=== PATIENT | female | born 1960 | race African-American/Black ===

== ENCOUNTER 2016-08-17 05:56 | Observation (INO) | payer BC ==
[~2016-08-17] VITALS: Ht 167.6 cm; Wt 89.8 kg
[~2016-08-17 05:56] MED LIST: AZIT250T6 PO; OMEP40CA5 PO; ONDA4TAB7 PO; SUCR1TAB PO
--- NOTE | 2016-08-17 06:04 | PHYS DOC ---
Past Medical History Past Medical History: GERD, High Cholesterol, Hypertension, Other Additional Past Medical Histor: gastritis, Past Surgical History: Hysterectomy Additional Past Surgical Histo: Endoscopy Alcohol Use: None Drug Use: None Adult General Chief Complaint Chief Complaint: ABDOMINAL PAIN HPI HPI Patient is a 56 year old female who presents with abdominal pain. She states this started on Saturday and she took some of her husbands stool softeners and had a hard bowel movement on Saturday. She states the pain resolved and then came back yesterday it's in the epigastric area and does not radiate. Nothing makes it better or worse. She denies any nausea vomiting diarrhea, fevers or chills. She states she's had normal bowel movement since Saturday however the pain is constant in nature and isn't crampy type of discomfort that she rates at 9 out of 10. He hasn't taken anything for pain or discomfort since Saturday. She is on omeprazole and takes that daily. She is supposed to be taking blood pressure and cholesterol medications however she stopped that about 4 months ago because she states they were not working. She denies any history of surgeries on her abdomen other than . Her primary care physician is Dr. Toribio Review of Systems Review of Systems Constitutional: Denies fever or chills [] Eyes: Denies change in visual acuity, redness, or eye pain [] HENT: Denies nasal congestion or sore throat [] Respiratory: Denies cough or shortness of breath [] Cardiovascular: No additional information not addressed in HPI [] GI: Denies nausea, vomiting, bloody stools or diarrhea, positive for abdominal pain [] : Denies dysuria or hematuria [] Musculoskeletal: Denies back pain or joint pain [] Integument: Denies rash or skin lesions [] Neurologic: Denies headache, focal weakness or sensory changes [] Endocrine: Denies polyuria or polydipsia [] Current Medications Current Medications Current Medications Medications (Trade) Dose Ordered Sig/Gayatri Start Time Stop Time Status Last Admin Dose Admin Info (Do NOT chart on this entry -- for MONITORING) 1 each PRN DAILY PRN 08/17/16 06:45 08/19/16 06:44 Iohexol (Omnipaque 300 Mg/ml) 75 ml 1X ONCE 08/17/16 07:00 08/17/16 07:01 DC 08/17/16 07:33 75 ML Morphine Sulfate 2 mg PRN Q15MIN PRN 08/17/16 09:00 08/18/16 08:59 08/17/16 09:07 2 MG Multi-Ingredient Mouthwash/Gargle (Gi Cocktail Single Dose) 15 ml STK-MED ONCE 08/17/16 06:17 08/17/16 06:18 DC Multi-Ingredient Mouthwash/Gargle 15 ml 15 ml 1X ONCE 08/17/16 06:30 08/17/16 06:31 DC 08/17/16 06:22 15 ML Sodium Chloride (Iv Sodium Chloride 0.9% 1000ml Bag) 1,000 ml @ 100 mls/hr Q10H 08/17/16 07:00 08/17/16 16:59 08/17/16 06:32 100 MLS/HR Allergies Allergies Allergies Coded Allergies Type Severity Reaction Last Updated Verified Penicillins Allergy Severe swelling 08/17/16 Yes Physical Exam Physical Exam Constitutional: Well developed, well nourished, no acute distress, non-toxic appearance. [] HENT: Normocephalic, atraumatic, bilateral external ears normal, oropharynx moist, no oral exudates, nose normal. [] Eyes: PERRLA, EOMI, conjunctiva normal, no discharge. [] Neck: Normal range of motion, no tenderness, supple, no stridor. [] Cardiovascular:Heart rate regular rhythm, no murmur [] Lungs & Thorax: Bilateral breath sounds clear to auscultation [] Abdomen: Bowel sounds normal, soft, tender palpation epigastric area, no rebound or guarding, no masses, no pulsatile masses. [] Skin: Warm, dry, no erythema, no rash. [] Back: No tenderness, no CVA tenderness. [] Extremities: No tenderness, no cyanosis, no clubbing, ROM intact, no edema. [] Neurologic: Alert and oriented X 3, normal motor function, normal sensory function, no focal deficits noted. [] Psychologic: Affect normal, judgement normal, mood normal. [] Current Patient Data Vital Signs Vital Signs Date Time Temp Pulse Resp B/P Pulse Ox O2 Delivery O2 Flow Rate FiO2 08/17/16 07:00 72 18 179/93 97 Room Air 08/17/16 06:00 98.8 98.8 Lab Values Laboratory Tests Test 08/17/16 06:00 08/17/16 06:50 White Blood Count 7.9x10^3/uL (4.0-11.0) Red Blood Count 4.68x10^6/uL (3.50-5.40) Hemoglobin 13.7g/dL (12.0-15.5) Hematocrit 42.2% (36.0-47.0) Mean Corpuscular Volume 90fL (79-100) Mean Corpuscular Hemoglobin 29pg (25-35) Mean Corpuscular Hemoglobin Concent 32g/dL (31-37) Red Cell Distribution Width 14.6% (11.5-14.5) H Platelet Count 278x10^3/uL (140-400) Neutrophils (%) (Auto) 51% (31-73) Lymphocytes (%) (Auto) 42% (24-48) Monocytes (%) (Auto) 5% (0-9) Eosinophils (%) (Auto) 1% (0-3) Basophils (%) (Auto) 1% (0-3) Neutrophils # (Auto) 4.0x10^3uL (1.8-7.7) Lymphocytes # (Auto) 3.3x10^3/uL (1.0-4.8) Monocytes # (Auto) 0.4x10^3/uL (0.0-1.1) Eosinophils # (Auto) 0.1x10^3/uL (0.0-0.7) Basophils # (Auto) 0.1x10^3/uL (0.0-0.2) Urine Collection Type Void Urine Color Yellow Urine Clarity Clear Urine pH 7.0 Urine Specific [place] 1.020 Urine Protein Negativemg/dL (NEG-TRACE) Urine Glucose (UA) Negativemg/dL (NEG) Urine Ketones (Stick) Negativemg/dL (NEG) Urine Blood Negative (NEG) Urine Nitrite Negative (NEG) Urine Bilirubin Negative (NEG) Urine Urobilinogen Dipstick 0.2mg/dL (0.2 mg/dL) Urine Leukocyte Esterase Negative (NEG) Urine RBC 0/HPF (0-2) Urine WBC 1-4/HPF (0-4) Urine Squamous Epithelial Cells Many/LPF Urine Bacteria Moderate/HPF (0-FEW) Urine Mucus Marked/LPF Urine Test Negative (NEG) Prothrombin Time 13.2SEC (11.7-14.0) Prothrombin Time INR 1.1 (0.8-1.1) PTT 29SEC (24-38) Sodium Level 145mmol/L (136-145) Potassium Level 3.7mmol/L (3.5-5.1) Chloride Level 109mmol/L (98-107) H Carbon Dioxide Level 26mmol/L (21-32) Anion Gap 10 (6-14) Blood Urea Nitrogen 12mg/dL (7-20) Creatinine 0.7mg/dL (0.6-1.0) Estimated GFR (Cockcroft-Gault) 104.7 BUN/Creatinine Ratio 17 (6-20) Glucose Level 129mg/dL (70-99) H Calcium Level 9.8mg/dL (8.5-10.1) Total Bilirubin 0.2mg/dL (0.2-1.0) Aspartate Amino Transferase (AST) 13U/L (15-37) L Alanine Aminotransferase (ALT) 26U/L (14-59) Alkaline Phosphatase 87U/L (46-116) Creatine Kinase 69U/L (26-192) Creatine Kinase MB (Mass) 0.6ng/mL (0.0-3.6) Creatine Kinase MB Relative Index 0.9% (0-4) Troponin I Quantitative < 0.017ng/mL (0.000-0.055) [id number]-[id number]-Type Natriuretic Peptide 45pg/mL (0-124) Total Protein 7.2g/dL (6.4-8.2) Albumin 3.5g/dL (3.4-5.0) Albumin/Globulin Ratio 0.9 (1.0-1.7) L Lipase 101U/L (73-393) Laboratory Tests 08/17/16 06:00 Laboratory Tests 08/17/16 06:50 EKG EKG EKG shows normal sinus rhythm rate [address] elevations or T-wave inversions, normal axis, QRS 82 ms, QTC 432 ms, as interpreted by me. Radiology/Procedures Radiology/Procedures [facility] [address] [place], [place] [id number] IMAGING REPORT Signed PATIENT: NORMA VILLA ACCOUNT: [id number] : 1960 LOCATION: ER AGE: 56 SEX: F EXAM STATUS: REG ER ORD. PHYSICIAN: CLARA TATE MD REASON: abd pain PROCEDURE: ABD PELV W/ IV CONTRAST ONLY Indication abdominal pain. Predominantly at the gastric. Axial images through the abdomen and pelvis were obtained. IV contrast, 75 cc of Omnipaque 300, was administered. No oral contrast was administered. No prior imaging of the abdomen or pelvis is available. No definite acute finding is seen at either lung base. There is some slight volume loss at the lung bases likely reflecting atelectasis. There are several low-density masses in the liver which are not completely characterized on this exam but in all likelihood reflect small incidental cysts. Clinical correlation as to the possibility for hepatic pathology advised. A definite significant finding in the liver is not seen. The spleen appears unremarkable. The gallbladder is largely contracted. No pancreatic abnormality is seen. There is a low-density 2.5 cm mass, compatible with a cyst, associated with the right kidney. A smaller subcentimeter mass also compatible with a cyst is noted associated with the left kidney. There are occasional right renal calculi the largest measuring approximately 3 to 4 mm. Acute finding in the abdomen is not seen. No mass or inflammatory process is seen in the pelvis. There is a small periumbilical hernia which appears uncomplicated. IMPRESSION: No acute finding seen in the abdomen or pelvis. Small masses in the liver likely reflect incidental cysts. Bilateral renal cysts and small right renal calculi DICTATED and SIGNED BY: GEMMA PHILLIPS MD DATE: 08/17/16 0757 CC: CLARA TATE MD; RICHARD TORIBIO MD ~ Impressions: Abdominal pain Chest pain Hypertension Dyslipidemia Noncompliance with medications Course & Med Decision Making Course & Med Decision Making Pertinent Labs and Imaging studies reviewed. (See chart for details) EKG, chest x-ray and CT abdomen and pelvis nonacute. We'll admit for further evaluation and chest pain rule out. I spoke with cardiology and they are aware of the patient. She was given 325 of aspirin. Dragon Disclaimer Dragon Disclaimer This electronic medical record was generated, in whole or in part, using a voice recognition dictation system. Departure Departure Impression: Primary Impression: Abdominal pain Additional Impression: Chest pain Disposition: 09 ADMITTED INPATIENT Admitting Physician: Gali Hudson Condition: GOOD Referrals: RICHARD TORIBIO MD (PCP) Problem Qualifiers CLARA TATE MD Aug 17, 2016 06:04
[2016-08-17] MEDS ORDERED: LIDO:MAALOX:DONNATAL 1:1:1 15 ML SINGLE DOSE ONE (06:17)
[2016-08-17 06:30] LABS: BASO # 0.1 x10^3/uL (0.0-0.2); BASO % 1 % (0-3); EOS % 1 % (0-3); HEMATOCRIT 42.2 % (36.0-47.0); HEMOGLOBIN 13.7 g/dL (12.0-15.5); LYMPH # 3.3 x10^3/uL (1.0-4.8); LYMPH % 42 % (24-48); MEAN CORPUSCULAR HEMOGLOBIN 29 pg (25-35); MEAN CORPUSCULAR HGB CONC 32 g/dL (31-37); MEAN CORPUSCULAR VOLUME 90 fL (79-100); MONO % 5 % (0-9); NEUT % 51 % (31-73); PLATELET COUNT 278 x10^3/uL (140-400); RED BLOOD COUNT 4.68 x10^6/uL (3.50-5.40); RED CELL DISTRIBUTION WIDTH 14.6 % (11.5-14.5); WHITE BLOOD COUNT 7.9 x10^3/uL (4.0-11.0)
[2016-08-17] MEDS ORDERED: LIDO:MAALOX:DONNATAL 1:1:1 15 ML SINGLE DOSE SWSW ONE (06:30)
[2016-08-17 06:33] LABS: BILIRUBIN,URINE NEGATIVE (NEG); GLUCOSE,URINE NEGATIVE (NEG); NITRITE,URINE NEGATIVE (NEG); PROTEIN,URINE NEGATIVE (NEG-TRACE); UROBILINOGEN,URINE 0.2 mg/dL (0.2 mg/dL)
[2016-08-17 06:36] LABS: NEG OBC UR NEG; POS OBC UR POS
[2016-08-17 06:38] LABS: RBC,URINE 0 /HPF (0-2)
[2016-08-17 06:39] LABS: BACTERIA,URINE MODERATE /HPF (0-FEW); SQUAMOUS EPITHELIAL CELL,UR MANY /LPF
[2016-08-17] MEDS ORDERED: CONTRAST GIVEN MC PRN (06:45)
--- NOTE | 2016-08-17 06:54 | EKG ---
[facility] [address] [place] [address] Test Date: 2016-08-17 Test Time: 06:33:45 Pat Name: NORMA VILLA Department: Room: Gender: F [employer]: : 1960 Requested By: CLARA TATE Order Number: [id number] Reading MD: Ree Loving Measurements Intervals White Rate: 68 P: 60 AR: 182 QRS: 8 QRSD: 82 T: 25 QT: 402 QTc: 432 Interpretive Statements SINUS RHYTHM NORMAL EKG Electronically Signed On 08-19-2016 20:11:34 [employer] by Ree Loving
[2016-08-17] MEDS ORDERED: IV NORMAL SALINE 1000ML BAG 1,000 ML IV SCH (07:00)
[2016-08-17] MEDS ORDERED: IOHEXOL 300 MG/ML 75 ML VIAL IV ONE (07:00)
[2016-08-17 07:03] LABS: INR 1.1 (0.8-1.1); PROTHROMBIN TIME PATIENT 13.2 SEC (11.7-14.0)
[2016-08-17 07:12] LABS: CALCIUM 9.8 mg/dL (8.5-10.1); CREATININE 0.7 mg/dL (0.6-1.0); GFR 104.7; POTASSIUM 3.7 mmol/L (3.5-5.1)
[2016-08-17 07:18] LABS: ALBUMIN 3.5 g/dL (3.4-5.0); ALBUMIN/GLOBULIN RATIO 0.9 (1.0-1.7); TOTAL BILIRUBIN 0.2 mg/dL (0.2-1.0); TOTAL PROTEIN 7.2 g/dL (6.4-8.2)
[2016-08-17 07:33] LABS: CKMB INDEX 0.9 % (0-4); CKMB MASS 0.6 ng/mL (0.0-3.6)
--- NOTE | 2016-08-17 08:09 | RAD ---
Indication abdominal pain. Predominantly at the gastric. Axial images through the abdomen and pelvis were obtained. IV contrast, 75 cc of Omnipaque 300, was administered. No oral contrast was administered. No prior imaging of the abdomen or pelvis is available. No definite acute finding is seen at either lung base. There is some slight volume loss at the lung bases likely reflecting atelectasis. There are several low-density masses in the liver which are not completely characterized on this exam but in all likelihood reflect small incidental cysts. Clinical correlation as to the possibility for hepatic pathology advised. A definite significant finding in the liver is not seen. The spleen appears unremarkable. The gallbladder is largely contracted. No pancreatic abnormality is seen. There is a low-density 2.5 cm mass, compatible with a cyst, associated with the right kidney. A smaller subcentimeter mass also compatible with a cyst is noted associated with the left kidney. There are occasional right renal calculi the largest measuring approximately 3 to 4 mm. Acute finding in the abdomen is not seen. No mass or inflammatory process is seen in the pelvis. There is a small periumbilical hernia which appears uncomplicated. IMPRESSION: No acute finding seen in the abdomen or pelvis. Small masses in the liver likely reflect incidental cysts. Bilateral renal cysts and small right renal calculi
--- NOTE | 2016-08-17 08:49 | ACF ---
Admission Forms Criteria ABDOMINAL PAIN Clinical Indications for Admission to Inpatient Care (Place 'X' for any and all applicable criteria): Admission is indicated for ANY ONE of the following(1)(2)(3)(4)(5): [X]I. Inpatient admission required rather than observation care (Also use Abdominal Pain: Observation Care, as appropriate) because of ANY ONE of the following: [X]a) Severe pain requiring acute inpatient management [ ]b) Identification of etiology/finding that requires inpatient care (eg, aortic dissection, free air) [ ]c) Absent bowel sounds with complete ileus(6) [ ]d) Suspected toxic megacolon [ ]e) Severe electrolyte abnormalities requiring inpatient care [ ]f) High fever or infection requiring inpatient admission as indicated by ANY ONE of following(7)(8): [ ] i) Appropriate outpatient or observational care antimicrobial treatment unavailable, not effective, or not feasible [ ] ii) Documented bacteremia [ ] iii) Temperature > 104.9 degrees F (oral) [ ] iv) T >103.1 F (oral) or < 96.8 F(rectal) that does not respond to all emergency treatment measures [ ]g) Signs of intestinal obstruction [B] [ ]h) Hemodynamic instability [ ]i) IV fluid to replace significant ongoing losses (greater than 3 L/m2 per day) (12)(13) [ ]j) Percutaneous or open drainage (eg, abscess, biliary tract ) procedures [ ]k) Parenteral nutrition regimen that must be implemented on inpatient basis [ ]l) Other condition,treatment or monitoring requiring inpatient admission. [ ]II. Peritoneal signs present [ ]III. Surgery needed that cannot be performed on an ambulatory basis. [ ]IV. Evaluation requires patient to not eat or drink for extended period ( eg, more than 24 hours). [ ]V. Contraindications and/or Inappropriate clinical situations for Observational Care in patients with abdominal pain, when ANY ONE of the following is required: [ ]a) Thorough evaluation is required to prevent catastrophic events due to delays in diagnosing (e.g.Mesenteric ischemia) 1,3 [ ]b) Patient with severe pathology or with chronic symptoms unlikely to improve in the ED stay (3) [ ]. General contraindications and/or Inappropriate clinical situations for Observational Care in patients with abdominal pain, when ANY ONE of the following is required: [ ]a) Prediction of prolongation of LOS based on ANY ONE of the following may be considered as a contraindication for observational care 2, 3, 4, 5, 6, 7, 8, 9, 10, 11 [ ]i) Age > 65 yrs. [ ]ii) Patient arriving by ambulance [ ]iii) Patient with high acuity [ ]iv) Patient requiring vital sign monitoring [ ]v) Patient on IV medication [ ]b) Systolic blood pressures 180mmHg 3,12 [ ]c) Patient with altered mental status including delirium and other alteration of consciousness, (3) [ ]d) Patient whose discharge disposition will be to a fci home or rehabilitation home should not be managed in Emergency Department Observation Unit. CMS rule requires 3 days hospital stay before such placement.3,13 [ ]e) Patient with failure to thrive due to broad array of etiologies 3,16,17 [ ]f) Inability to ambulate 3,14 Extended stay beyond goal length of stay may be needed for(2)(3): [ ]a) Persistent abdominal pain with suspected intra-abdominal process [ ]b) Diagnosed condition requiring continued stay (e.g., pancreatitis, complicated diverticulitis) [ ]c) Surgery (e.g., colectomy) The original [email or web address] content created by [employer] has been revised. The portions of the content which have been revised are identified through the use of italic text or in bold, and [facility] has neither reviewed nor approved the modified material.All other unmodified content is copyright [email or web address]. Please see references footnoted in the original [email or web address] edition 2016 Admission Criteria Met?: Yes LUTHER NAVA Aug 17, 2016 08:49
[2016-08-17] MEDS ORDERED: MORPHINE SULFATE 2 MG/ML DISP.SYRIN. IV/SQ PRN (09:00)
[2016-08-17] MEDS ORDERED: ONDANSETRON PF 4 MG/2 ML VIAL. IV PRN (09:15)
[2016-08-17] MEDS ORDERED: MORPHINE SULFATE 2 MG/ML DISP.SYRIN. IV PRN (09:15)
[2016-08-17] MEDS ORDERED: ASPIRIN 325 MG TABLET PO ONE (09:15)
--- NOTE | 2016-08-17 09:43 | RAD ---
Portable AP upright view CXR: 0924 Clinical indications: Chest pain today. Comparison: September 01, 2013. Findings: No acute lung infiltrate or pleural effusion or pulmonary edema or lung mass or pneumothorax is seen. The heart size, pulmonary vasculature, mediastinum and both tea are unremarkable. Impression: No acute radiographic abnormality is seen.
[2016-08-17 10:45] VITALS: BP 154/100
[2016-08-17 10:46] VITALS: BP 154/100
--- NOTE | 2016-08-17 11:12 | PDOC2 ---
YANET FITZGERALD COLOR CHECKER 08/17/16 1111: CARDIAC CONSULT DATE OF CONSULT Date of Consult DATE: 08/17/16 TIME: 11:05 REASON FOR CONSULT Reason for Consult: Chest pain REFERRING PHYSICIAN Referring Physician: Conchis SOURCE Source: Chart review, Patient HISTORY OF PRESENT ILLNESS HISTORY OF PRESENT ILLNESS This is a pleasant 56 yo female admitted for complains of abdominal pain and chest pain. Reports that she started having abdominal pain last weekend. She was actually trying to have a BM, was straining and noted hersel to be constipated with stool being hard. She did take some stool softeners. She also felt some epigastric tenderness and dull pain to her stomach region especially after eating dinner last night. She has been taking only prilosec everyday and no other medications and no NSAIDs. She has been having daily heartburn and she felt like her GERD is not controlled. While in ED, having epigastric pain, her pain went to her mid chest and it was burning. This was nonradiating otherwise. There was no nausea, palpitations, diaphoresis. Denies any diarrhea, nor fever or chills. Denies any reports of SOA, WISDOM. Denies any CAD, arrhythmia, VTE, falls or any recent injuries. She does have HTN and HLP which she stopped taking her medications 3 months ago. Currently she still has epigastric tenderness but denies any CP. PAST MEDICAL HISTORY Cardiovascular: HTN, Hyperlipidemia Pulmonary: No pertinent hx CENTRAL NERVOUS SYSTEM: Other (No pertinent history) GI: GERD Heme/Onc: No pertinent hx Hepatobiliary: No pertinent hx Psych: No pertinent hx Musculoskeletal: Osteoarthritis Infectious disease: No pertinent hx ENT: No pertinent hx Renal/: No pertinent hx Endocrine: No pertinent hx Dermatology: No pertinent hx PAST SURGICAL HISTORY Past Surgical History: Hysterectomy (partial) FAMILY HISTORY Family History no family hx of CV disease SOCIAL HISTORY Smoke: No ALCOHOL: occassional Drugs: None Lives: with Family CURRENT MEDICATIONS CURRENT MEDICATIONS Current Medications Medications (Trade) Dose Ordered Sig/Gayatri Route PRN Reason Start Time Stop Time Status Last Admin Dose Admin Multi-Ingredient Mouthwash/Gargle 15 ml 15 ml 1X ONCE SWSW 08/17/16 06:30 08/17/16 06:31 DC 08/17/16 06:22 Sodium Chloride (Iv Sodium Chloride 0.9% 1000ml Bag) 1,000 ml @ 100 mls/hr Q10H IV 08/17/16 07:00 08/17/16 16:59 08/17/16 06:32 Iohexol (Omnipaque 300 Mg/ml) 75 ml 1X ONCE IV 08/17/16 07:00 08/17/16 07:01 DC 08/17/16 07:33 Morphine Sulfate 2 mg PRN Q15MIN PRN IV/SQ PAIN GREATER THAN 3/10 08/17/16 09:00 08/18/16 08:59 08/17/16 09:07 Aspirin (Elza Aspirin) 325 mg 1X ONCE PO 08/17/16 09:15 08/17/16 09:16 DC 08/17/16 09:26 ALLERGIES ALLERGIES: Coded Allergies: Penicillins (Verified Allergy, Severe, swelling, 08/17/16) ROS Review of System 14 point ROS evaluated with pertinent positives noted per HPI PHYSICAL EXAM General: Alert, Oriented X3, Cooperative, No acute distress HEENT: Atraumatic, Mucous membr. moist/pink Lungs: Clear to auscultation, Normal air movement Heart: Regular rate, Normal S1, Normal S2, No murmurs Abdomen: Soft, Other (epigastric tenderness) Extremities: No cyanosis, No edema Skin: No breakdown, No significant lesion Neuro: Normal speech, Sensation intact Psych/Mental Status: Mental status NL, Mood NL MUSCULOSKELETAL: Osteoarthritic changes both hands VITALS VITALS Vital Signs Date Time Temp Pulse Resp B/P Pulse Ox O2 Delivery O2 Flow Rate FiO2 08/17/16 10:46 97.6 56 18 154/100 93 Room Air 97.6 LABS Lab: Laboratory Tests Test 08/17/16 06:00 08/17/16 06:50 White Blood Count 7.9x10^3/uL (4.0-11.0) Red Blood Count 4.68x10^6/uL (3.50-5.40) Hemoglobin 13.7g/dL (12.0-15.5) Hematocrit 42.2% (36.0-47.0) Mean Corpuscular Volume 90fL (79-100) Mean Corpuscular Hemoglobin 29pg (25-35) Mean Corpuscular Hemoglobin Concent 32g/dL (31-37) Red Cell Distribution Width 14.6% (11.5-14.5) Platelet Count 278x10^3/uL (140-400) Neutrophils (%) (Auto) 51% (31-73) Lymphocytes (%) (Auto) 42% (24-48) Monocytes (%) (Auto) 5% (0-9) Eosinophils (%) (Auto) 1% (0-3) Basophils (%) (Auto) 1% (0-3) Neutrophils # (Auto) 4.0x10^3uL (1.8-7.7) Lymphocytes # (Auto) 3.3x10^3/uL (1.0-4.8) Monocytes # (Auto) 0.4x10^3/uL (0.0-1.1) Eosinophils # (Auto) 0.1x10^3/uL (0.0-0.7) Basophils # (Auto) 0.1x10^3/uL (0.0-0.2) Urine Collection Type Void Urine Color Yellow Urine Clarity Clear Urine pH 7.0 Urine Specific [place] 1.020 Urine Protein Negativemg/dL (NEG-TRACE) Urine Glucose (UA) Negativemg/dL (NEG) Urine Ketones (Stick) Negativemg/dL (NEG) Urine Blood Negative (NEG) Urine Nitrite Negative (NEG) Urine Bilirubin Negative (NEG) Urine Urobilinogen Dipstick 0.2mg/dL (0.2 mg/dL) Urine Leukocyte Esterase Negative (NEG) Urine RBC 0/HPF (0-2) Urine WBC 1-4/HPF (0-4) Urine Squamous Epithelial Cells Many/LPF Urine Bacteria Moderate/HPF (0-FEW) Urine Mucus Marked/LPF Urine Test Negative (NEG) Prothrombin Time 13.2SEC (11.7-14.0) Prothromb Time International Ratio 1.1 (0.8-1.1) Activated Partial Thromboplast Time 29SEC (24-38) Sodium Level 145mmol/L (136-145) Potassium Level 3.7mmol/L (3.5-5.1) Chloride Level 109mmol/L (98-107) Carbon Dioxide Level 26mmol/L (21-32) Anion Gap 10 (6-14) Blood Urea Nitrogen 12mg/dL (7-20) Creatinine 0.7mg/dL (0.6-1.0) Estimated GFR (Cockcroft-Gault) 104.7 BUN/Creatinine Ratio 17 (6-20) Glucose Level 129mg/dL (70-99) Calcium Level 9.8mg/dL (8.5-10.1) Total Bilirubin 0.2mg/dL (0.2-1.0) Aspartate Amino Transf (AST/SGOT) 13U/L (15-37) Alanine Aminotransferase (ALT/SGPT) 26U/L (14-59) Alkaline Phosphatase 87U/L (46-116) Creatine Kinase 69U/L (26-192) Creatine Kinase MB (Mass) 0.6ng/mL (0.0-3.6) Creatine Kinase MB Relative Index 0.9% (0-4) Troponin I Quantitative < 0.017ng/mL (0.000-0.055) EN-Pwu-G-Type Natriuretic Peptide 45pg/mL (0-124) Total Protein 7.2g/dL (6.4-8.2) Albumin 3.5g/dL (3.4-5.0) Albumin/Globulin Ratio 0.9 (1.0-1.7) Lipase 101U/L (73-393) ASSESSMENT/PLAN ASSESSMENT/PLAN 1. Atypical chest pain: originating from epigastric region. Compatible with GI etiology. Pain is noncardiac. Troponin normal, METS>10, EKG SR without acute changes. No ischemic workup warranted at this time. 2. Abdominal pain with associated constipation and GERD: mainly epigastric reproducible with palpation. Takes daily PPI but remains to have daily heartburn. Recommend GI consult. 3. HTN: labile, last use of losartan 3 months ago, she felt she did not need it. Possible hypertensive heart disease. TTE today. Resume losartan at 50 mg po daily. 4. HLP: lipid panel, last use of lipitor 3 months ago, restart and obtian TSH and lipid panel. 5. Right renal calculi: small per CT. No UTI per UA. 6. Noncompliance: discussed adherence. Problems: ALMAZ SALAS MD 08/17/16 1631: CARDIAC CONSULT ALLERGIES ALLERGIES: Coded Allergies: Penicillins (Verified Allergy, Severe, swelling, 08/17/16) ASSESSMENT/PLAN ASSESSMENT/PLAN Patient seen and examined. Agree with OPTICAL GLASS SILVERER's assessment and plan. Chest pain atypical, noncardiac and most probably GI etiology. Myocardial infarction ruled out. Check 2-D echo to assess LV function and rule out wall motion abnormalities. Resume losartan for better blood pressure control. Thank you for your consultation. Problems: YANET FITZGERALD APRN Aug 17, 2016 11:11 ALMAZ SALAS MD Aug 17, 2016 16:31
[2016-08-17] MEDS ORDERED: LOSA50TA6 PO (11:34)
[2016-08-17] MEDS ORDERED: ATOR20TA PO (11:34)
[2016-08-17] MEDS: PANTOPRAZOLE 40 MG TABLET. PO SCH (12:16)
[2016-08-17] MEDS: LOSARTAN POTASSIUM 50 MG TABLET. PO SCH (12:20)
[2016-08-17 12:26] LABS: CHOLESTEROL/HDL RATIO 5.2
[2016-08-17 15:00] VITALS: BP 128/72
--- NOTE | 2016-08-17 16:43 | CARD ---
APPROVED REPORT EXAM: Two-dimensional and M-mode echocardiogram with Doppler and color Doppler. Other Information Quality : Average Rhythm : NSR INDICATION Hypertension/HCVD Chest Pain 2D DIMENSIONS RVDd3.2 (2.9-3.5cm)Left Atrium(2D)3.7 (1.6-4.0cm) IVSd1.4 (0.7-1.1cm)Aortic Root(2D)2.9 (2.0-3.7cm) LVDd4.6 (3.9-5.9cm)LVOT Diameter1.8 (1.8-2.4cm) PWd1.4 (0.7-1.1cm)LVDs3.3 (2.5-4.0cm) FS (%) 29.3 %SV55.4 ml LVEF(%)56.3 (>50%) Aortic Valve AoV Peak Leland.137.7cm/sAoV VTI25.2cm AO Peak GR.7.6mmHgLVOT Peak Leland.112.7cm/s LVOT VTI 23.32cmAO Mean GR.4mmHg MARILYNN (VMAX)2.14jm7NEL (VTI)2.47cm2 Mitral Valve MV E Yrarxpzo71.7cm/sMV DECEL BVOP889xi MV A Cdhvocrv732.5cm/sMV E Mean Gr.2mmHg MV JOF95lfK/A Ratio0.8 MV A Wqbrpdog17kkMEW (PHT)3.24cm2 TDI E/Lateral E'8.9E/Medial E'11.4 Pulmonary Valve PV Peak Ddnzxqky16.3cm/sPV Peak Grad.3mmHg Tricuspid Valve TR P. Ltqmcxhd111pg/sRAP MNUBKZXB8lqMh TR Peak Gr.24ymYpUERI86poQb Pulmonary Vein S1 Karjvhlr92.4cm/sD2 Jvetxdry83.2cm/s LEFT VENTRICLE The left ventricle is normal size. There is mild concentric left ventricular hypertrophy. Left ventri roxana systolic function is normal. The Ejection Fraction is 55-60%. There is normal LV segmental wall m otion. The left ventricular diastolic function and filling is normal for age. RIGHT VENTRICLE The right ventricle is normal size. The right ventricular systolic function is normal. ATRIA The left atrium size is normal. The right atrium size is normal. The interatrial septum is intact wit h no evidence for an atrial septal defect or patent foramen ovale as noted on 2-D or Doppler imaging. AORTIC VALVE The aortic valve is normal in structure and function. The aortic valve is trileaflet. Doppler and Col or Flow revealed no significant aortic regurgitation. There is no significant aortic valvular stenosi s. MITRAL VALVE Mitral annular calcification is mild. The mitral valve leaflets are thickened. There is no mitral trini ve stenosis. Doppler and Color Flow revealed mild mitral regurgitation. TRICUSPID VALVE The tricuspid valve is normal in structure and function. Doppler and Color Flow revealed mild tricusp id regurgitation. The PA pressure was estimated at 31 mmHg. There is no tricuspid valve stenosis. PULMONIC VALVE The pulmonic valve is not well visualized. Doppler and Color Flow revealed no pulmonic valvular regur gitation. There is no pulmonic valvular stenosis. GREAT VESSELS The aortic root is normal in size. Normal pulmonary venous flow (Doppler). The IVC is normal in size and collapses >50% with inspiration. PERICARDIAL EFFUSION There is no evidence of significant pericardial effusion. Critical Notification Critical Value: No <Conclusion> Left ventricle systolic function is normal. The Ejection Fraction is 55-60%. There is normal LV segmental wall motion. Mild mitral regurgitation. Mild tricuspid regurgitation. The PA pressure was estimated at 31 mmHg. There is no evidence of significant pericardial effusion.
[2016-08-17 19:00] VITALS: BP 147/100
[2016-08-17] MEDS ORDERED: ATORVASTATIN CALCIUM 10 MG TABLET. PO SCH ×2 (21:00)
[2016-08-17] MEDS ORDERED: ACETAMINOPHEN 325 MG TABLET. PO PRN (21:45)
[2016-08-17 23:00] VITALS: BP 129/79
[2016-08-18 03:00] VITALS: BP 130/65
[2016-08-18 07:12] VITALS: BP 134/109
[2016-08-18] MEDS: PANTOPRAZOLE 40 MG TABLET. PO SCH (08:11)
[2016-08-18] MEDS: LOSARTAN POTASSIUM 50 MG TABLET. PO SCH (08:12)
--- NOTE | 2016-08-18 10:27 | PDOC ---
Provider Note Provider Note [id number] JASON RUELAS MD Aug 18, 2016 10:27
--- NOTE | 2016-08-18 10:27 | DISCH ---
DISCHARGE INSTRUCTIONS Condition on Discharge Condition on Discharge: Stable Activity After Discharge Activity Instructions for Disc: No restrictions Diet after Discharge Diet after Discharge: Low Sodium 4 gm Follow-Up Follow up with: as scheduled JASON RUELAS MD Aug 18, 2016 10:27
[2016-08-18 10:45] VITALS: BP 147/93
[2016-08-18] MEDS ORDERED: ONDANSETRON ODT 4 MG TAB.RAPDIS PO PRN ×2 (10:45)
[2016-08-18] MEDS ORDERED: LOSARTAN POTASSIUM 50 MG TABLET. PO SCH (11:00)
--- NOTE | 2016-08-18 11:03 | SSS ---
ADMIT DATE: 08/18/2016 HOSPITAL SUMMARY: This is a 56-year-old black female patient of Dr. Hudson who is normally taking losartan and atorvastatin for hypertension and takes omeprazole for acid reflux. She is "stopped taking my blood pressure and cholesterol medicine" few weeks ago and after eating pizza and drinking beer she came in with a burning pressure-like chest pain. CBC, chemistry profile, and urinalysis were normal as was chest x-ray and abdominal and pelvic CT scans. EKG showed no acute change as well and troponins were normal. She was seen in consultation by Dr. Lorenz as well. This was GI in origin and perhaps contributed by hypertension, as the patient is admitted to noncompliance with medication. She is comfortable to be discharged and followed as an outpatient and plan is to resume her losartan and atorvastatin once she gets home and continue her omeprazole as well. FINAL DIAGNOSES: 1. Chest pain secondary to gastroesophageal reflux disease. 2. Hypertension. 3. Hyperlipidemia. OPERATIONS, PROCEDURES, COMPLICATIONS: None. CONSULTATION: Dr. Lorenz. DISPOSITION: She will resume her home doses of losartan and atorvastatin and continue omeprazole with better reflux type. Diet and low salt intake and alcohol and carbonated beverages. She will follow with Dr. Hudson as scheduled and further evaluation to consider gallbladder etiology if pain recurs. JASON RUELAS MD DR: JEM/beck JOB#: [id number] / [id number]
[2016-08-18] MEDS ORDERED: PANTOPRAZOLE 40 MG TABLET. PO SCH (11:30)
[2016-08-19] MEDS ORDERED: ATORVASTATIN CALCIUM 20 MG TABLET PO SCH (21:00)
== END 2016-08-18 13:40 | disposition home or self-care (01) ==
LOC: ER 05:56 → 6 SOUTH 09:00 → UNDODISOB 19:00
PROVIDERS: ADMIT Internal Medicine; ATTEND Internal Medicine
DX: N20.0 Calculus of kidney (principal); N28.1 Cyst of kidney, acquired; K42.9 Umbilical hernia without obstruction or gangrene; R07.89 Other chest pain; I10 Essential (primary) hypertension; E78.5 Hyperlipidemia, unspecified; K21.9 Gastro-esophageal reflux disease without esophagitis; Z91.14 Patient's other noncompliance with medication regimen; E78.00 Pure hypercholesterolemia, unspecified; Z90.710 Acquired absence of both cervix and uterus
CPT/HCPCS: 36415; 71010; 74177; 80053; 80061; 81001; 81025; 82553; 83690; 83880; 84443; 84484; 85027; 85610; 85730; 87086; 93005; 93306; 96361; 96372; 96374; 99285; G0378; J2270; J7030; Q9967; G0379

== ENCOUNTER 2016-09-17 19:22 | Emergency (ER) | payer BC ==
[~2016-09-17] VITALS: Ht 167.6 cm; Wt 90.5 kg
[~2016-09-17 19:22] MED LIST changes: +ATOR20TA PO; +LOSA50TA6 PO
[2016-09-17 20:06] VITALS: BP 147/93
[2016-09-17 20:41] LABS: BILIRUBIN,URINE NEGATIVE (NEG); GLUCOSE,URINE NEGATIVE (NEG); NITRITE,URINE NEGATIVE (NEG); PH,URINE 5.5; PROTEIN,URINE 100 mg/dL (NEG-TRACE); UROBILINOGEN,URINE 0.2 mg/dL (0.2 mg/dL)
[2016-09-17 21:03] LABS: BACTERIA,URINE 0 /HPF (0-FEW); RBC,URINE TNTC /HPF (0-2); SQUAMOUS EPITHELIAL CELL,UR MOD /LPF
[2016-09-17] MEDS ORDERED: SULF1TAB24 PO (21:53)
[2016-09-17] MEDS ORDERED: PHEN-318 PO (21:53)
--- NOTE | 2016-09-17 21:54 | PHYS DOC ---
Past Medical History Past Medical History: Hypertension, Other Additional Past Medical Histor: gastritis, Past Surgical History: , Hysterectomy Additional Past Surgical Histo: Endoscopy Additional Information: Nonsmoker Alcohol Use: None Drug Use: None Adult General Chief Complaint Chief Complaint: PAIN ON URINATION [facility] HPI Patient is a 56 year old female who presents with dysuria starting today. She noticed blood when wiping after using the restroom as well. She denies vaginal discharge, urinary frequency or urgency. She has not had any fever, nausea, vomiting, abdominal pain, or flank pain. Her PCP is Dr. Toribio. Review of Systems Review of Systems Constitutional: Denies fever or chills. [] GI: Denies abdominal pain, nausea, vomiting, bloody stools or diarrhea. [] : Denies vaginal discharge, urinary urgency or urinary frequency. Reports dysuria and hematuria. Musculoskeletal: Denies back pain or joint pain. [] Integument: Denies rash or skin lesions. [] Neurologic: Denies headache, focal weakness or sensory changes. [] All systems reviewed and negative unless otherwise stated in the HPI. Allergies Allergies Allergies Coded Allergies Type Severity Reaction Last Updated Verified Penicillins Allergy Severe swelling 08/17/16 Yes Physical Exam Physical Exam Constitutional: Well developed, well nourished, no acute distress, non-toxic appearance. [] HENT: Normocephalic, atraumatic, oropharynx moist. [] Eyes: PERRLA, EOMI, conjunctiva normal, no discharge. [] Neck: Normal range of motion, no tenderness, supple, no stridor. [] Cardiovascular: Heart rate regular rhythm, no murmur. [] Lungs & Thorax: Bilateral breath sounds clear to auscultation without wheezes, rales, or rhonchi. [] Abdomen: Bowel sounds normal, soft, no tenderness, no masses, no pulsatile masses. [] Skin: Warm, dry, no erythema, no rash. [] Back: No midline tenderness, no CVA tenderness. [] Neurologic: Alert and oriented X 3, normal motor function, normal sensory function, no focal deficits noted. [] Psychologic: Affect normal, judgement normal, mood normal. [] Current Patient Data Vital Signs Vital Signs Date Time Temp Pulse Resp B/P Pulse Ox O2 Delivery O2 Flow Rate FiO2 09/17/16 20:06 97.7 89 16 96 Room Air 97.7 Lab Values Laboratory Tests Test 09/17/16 20:20 Urine Color Red Urine Clarity Turbid Urine pH 5.5 Urine Specific [place] 1.020 Urine Protein 100mg/dL (NEG-TRACE) Urine Glucose (UA) Negativemg/dL (NEG) Urine Ketones (Stick) Negativemg/dL (NEG) Urine Blood Large (NEG) Urine Nitrite Negative (NEG) Urine Bilirubin Negative (NEG) Urine Urobilinogen Dipstick 0.2mg/dL (0.2 mg/dL) Urine Leukocyte Esterase Large (NEG) Urine RBC Tntc/HPF (0-2) Urine WBC 11-20/HPF (0-4) Urine Squamous Epithelial Cells Mod/LPF Urine Bacteria 0/HPF (0-FEW) Urine Mucus Slight/LPF EKG EKG [] Radiology/Procedures Radiology/Procedures [] Course & Med Decision Making Course & Med Decision Making Pertinent Labs and Imaging studies reviewed. (See chart for details) [] Dragon Disclaimer Dragon Disclaimer This electronic medical record was generated, in whole or in part, using a voice recognition dictation system. Departure Departure Impression: Primary Impression: UTI (urinary tract infection) Disposition: HOME, SELF-CARE Condition: STABLE Referrals: RICHARD TORIBIO MD (PCP) Patient Instructions: Urinary Tract Infection, Uiyr-ia-[id number] Additional Instructions: You were seen today for a urinary tract infection. Please complete all the prescribed antibiotics, even if you're feeling better. In addition to the antibiotic, you received a prescription for Pyridium. This will help with the burning with urination until the antibiotic begins to fight the infection. The medication will turn your urine bright orange. Please follow-up with your primary care doctor after completion of the antibiotics for recheck of your urine to be sure that the infection is cleared. Return to emergency department if you have fever, abdominal pain, or other new or concerning symptoms. Scripts Phenazopyridine Hcl (Pyridium)200 Mg Hvypqi778 Mg PO TID #6 TAB Prov:QUINTON CALDERON 09/17/16 Sulfamethoxazole/Trimethoprim (Bactrim Ds Tablet)1 Each Tablet1 Tab PO BID #14 TAB Prov:QUINTON CALDERON 09/17/16 Problem Qualifiers Primary Impression: UTI (urinary tract infection) Urinary tract infection type: acute cystitis Hematuria presence: with hematuria Qualified Code: N30.01 - Acute cystitis with hematuria QUINTON CALDERON Sep 17, 2016 21:54
--- NOTE | 2016-09-19 15:51 | VNOTE ---
CALL BACK NOTE CALL BACK Microbiology 09/17/16 Urine Culture - Final, Complete 09/17/16 Urine Culture Result 1 (ASHISH) - Final, Complete 09/17/16 Antimicrobic Susceptibility - Final, Complete Culture and sensitivity report received today from patient's visit on September 17. Patient was diagnosed with urinary tract infection. Culture shows Escherichia coli greater than 100,000 colony-forming units per milliliter. Patient was prescribed Bactrim. Sensitivity report indicates resistance to Bactrim. I called the listed phone number of [phone]. A young lady identified as patient's daughter answered the phone. I asked the young lady to give the message to the patient to contact this facility. Patient has listed penicillin as an allergy. Culture and sensitivity shows sensitivity to ciprofloxacin and nitrofurantoin. ORTEGA ARANDA Sep 19, 2016 15:51
== END 2016-09-17 22:05 | disposition home or self-care (01) ==
LOC: ER 19:22
DX: N30.01 Acute cystitis with hematuria (principal); I10 Essential (primary) hypertension; Z88.0 Allergy status to penicillin; Z90.710 Acquired absence of both cervix and uterus
CPT/HCPCS: 81001; 87086; 99284

== ENCOUNTER 2016-09-22 08:28 | Emergency (ER) | payer BC ==
[~2016-09-22] VITALS: Ht 167.6 cm; Wt 89.8 kg
[~2016-09-22 08:28] MED LIST changes: +PHEN-318 PO; +SULF1TAB24 PO
[2016-09-22 09:57] LABS: BILIRUBIN,URINE NEGATIVE (NEG); GLUCOSE,URINE NEGATIVE (NEG); NITRITE,URINE POSITIVE (NEG); PROTEIN,URINE 100 mg/dL (NEG-TRACE); UROBILINOGEN,URINE 0.2 mg/dL (0.2 mg/dL)
[2016-09-22] MEDS ORDERED: ONDANSETRON PF 4 MG/2 ML VIAL. IV ONE (10:00)
[2016-09-22] MEDS ORDERED: IV NORMAL SALINE 1000ML BAG 1,000 ML IV SCH (10:00)
[2016-09-22 10:20] LABS: BASO # 0.1 x10^3/uL (0.0-0.2); BASO % 1 % (0-3); EOS % 0 % (0-3); HEMATOCRIT 40.2 % (36.0-47.0); HEMOGLOBIN 13.2 g/dL (12.0-15.5); LYMPH # 2.4 x10^3/uL (1.0-4.8); LYMPH % 28 % (24-48); MEAN CORPUSCULAR HEMOGLOBIN 29 pg (25-35); MEAN CORPUSCULAR HGB CONC 33 g/dL (31-37); MEAN CORPUSCULAR VOLUME 89 fL (79-100); MONO % 6 % (0-9); NEUT % 65 % (31-73); PLATELET COUNT 286 x10^3/uL (140-400); RED BLOOD COUNT 4.53 x10^6/uL (3.50-5.40); RED CELL DISTRIBUTION WIDTH 13.9 % (11.5-14.5); WHITE BLOOD COUNT 8.5 x10^3/uL (4.0-11.0)
[2016-09-22 10:21] LABS: BACTERIA,URINE MODERATE /HPF (0-FEW); RBC,URINE TNTC /HPF (0-2); SQUAMOUS EPITHELIAL CELL,UR FEW /LPF
[2016-09-22 10:22] LABS: CALCIUM 10.1 mg/dL (8.5-10.1); GFR 69.4; POTASSIUM 3.7 mmol/L (3.5-5.1)
[2016-09-22 10:27] LABS: ALBUMIN 3.7 g/dL (3.4-5.0); ALBUMIN/GLOBULIN RATIO 0.9 (1.0-1.7); TOTAL BILIRUBIN 0.3 mg/dL (0.2-1.0); TOTAL PROTEIN 7.8 g/dL (6.4-8.2)
--- NOTE | 2016-09-22 10:52 | PHYS DOC ---
Past Medical History Past Medical History: Hypertension, Other Additional Past Medical Histor: gastritis Past Surgical History: , Hysterectomy Additional Past Surgical Histo: Endoscopy Alcohol Use: None Drug Use: None Adult General Chief Complaint Chief Complaint: ABDOMINAL PAIN HPI HPI Patient is a 56 year old female who presents with abdominal pain for one week. She reports pain in the epigastric and suprapubic regions. She has nausea without vomiting and urinary frequency. She denies any dysuria. She denies fever or change in her bowel movements. The patient was seen here 5 days ago and diagnosed with a urinary tract infection. She was prescribed Bactrim. The culture grew greater than 100,000 CFU per mL of Escherichia coli, resistant to Bactrim. We attempted to contact the patient to change her prescription, but were unable to reach her. Her PCP is Dr. Toribio. Review of Systems Review of Systems Constitutional: Denies fever or chills. [] Eyes: Denies change in visual acuity, redness, or eye pain. [] HENT: Denies ear pain, nasal congestion or sore throat. [] Respiratory: Denies cough or shortness of breath. [] Cardiovascular: Denies chest pain, palpitations or edema. [] GI: Denies vomiting, bloody stools or diarrhea. Reports abdominal pain and nausea. : Denies dysuria. Reports urinary frequency. Musculoskeletal: Denies back pain or joint pain. [] Integument: Denies rash or skin lesions. [] Neurologic: Denies headache, focal weakness or sensory changes. [] Endocrine: Denies polyuria or polydipsia. [] Psych: Denies anxiety or depression. [] All systems reviewed and negative unless otherwise stated in the HPI. Current Medications Current Medications Current Medications Medications (Trade) Dose Ordered Sig/Gayatri Start Time Stop Time Status Last Admin Dose Admin Ondansetron HCl (Zofran) 4 mg 1X ONCE 09/22/16 10:00 09/22/16 10:01 DC 09/22/16 10:14 4 MG Sodium Chloride (Iv Sodium Chloride 0.9% 1000ml Bag) 1,000 ml @ 1,000 mls/hr Q1H 09/22/16 10:00 09/22/16 10:59 DC 09/22/16 10:14 1,000 MLS/HR Allergies Allergies Allergies Coded Allergies Type Severity Reaction Last Updated Verified Penicillins Allergy Severe swelling 08/17/16 Yes Physical Exam Physical Exam Constitutional: Well developed, well nourished, no acute distress, non-toxic appearance. [] HENT: Normocephalic, atraumatic, oropharynx moist. [] Eyes: PERRLA, EOMI, conjunctiva normal, no discharge. [] Neck: Normal range of motion, no tenderness, supple, no stridor. [] Cardiovascular: Heart rate regular rhythm, no murmur. [] Lungs & Thorax: Bilateral breath sounds clear to auscultation without wheezes, rales, or rhonchi. [] Abdomen: Bowel sounds normal, soft, epigastric and suprapubic tenderness, no masses, no pulsatile masses. [] Skin: Warm, dry, no erythema, no rash. [] Back: No midline tenderness, no CVA tenderness. [] Extremities: No tenderness, ROM intact, no edema. Distal pulses equal bilaterally. [] Neurologic: Alert and oriented X 3, normal motor function, normal sensory function, no focal deficits noted. [] Psychologic: Affect normal, judgement normal, mood normal. [] Current Patient Data Vital Signs Vital Signs Date Time Temp Pulse Resp B/P Pulse Ox O2 Delivery O2 Flow Rate FiO2 09/22/16 11:10 79 18 136/78 97 Room Air 09/22/16 08:45 98.6 98.6 Lab Values Laboratory Tests Test 09/22/16 08:30 09/22/16 10:00 Urine Collection Type Unknown Urine Color Red Urine Clarity Turbid Urine pH 6.0 Urine Specific [place] 1.010 Urine Protein 100mg/dL (NEG-TRACE) Urine Glucose (UA) Negativemg/dL (NEG) Urine Ketones (Stick) Tracemg/dL (NEG) Urine Blood Large (NEG) Urine Nitrite Positive (NEG) Urine Bilirubin Negative (NEG) Urine Urobilinogen Dipstick 0.2mg/dL (0.2 mg/dL) Urine Leukocyte Esterase Large (NEG) Urine RBC Tntc/HPF (0-2) Urine WBC 5-10/HPF (0-4) Urine Squamous Epithelial Cells Few/LPF Urine Bacteria Moderate/HPF (0-FEW) White Blood Count 8.5x10^3/uL (4.0-11.0) Red Blood Count 4.53x10^6/uL (3.50-5.40) Hemoglobin 13.2g/dL (12.0-15.5) Hematocrit 40.2% (36.0-47.0) Mean Corpuscular Volume 89fL (79-100) Mean Corpuscular Hemoglobin 29pg (25-35) Mean Corpuscular Hemoglobin Concent 33g/dL (31-37) Red Cell Distribution Width 13.9% (11.5-14.5) Platelet Count 286x10^3/uL (140-400) Neutrophils (%) (Auto) 65% (31-73) Lymphocytes (%) (Auto) 28% (24-48) Monocytes (%) (Auto) 6% (0-9) Eosinophils (%) (Auto) 0% (0-3) Basophils (%) (Auto) 1% (0-3) Neutrophils # (Auto) 5.5x10^3uL (1.8-7.7) Lymphocytes # (Auto) 2.4x10^3/uL (1.0-4.8) Monocytes # (Auto) 0.5x10^3/uL (0.0-1.1) Eosinophils # (Auto) 0.0x10^3/uL (0.0-0.7) Basophils # (Auto) 0.1x10^3/uL (0.0-0.2) Sodium Level 143mmol/L (136-145) Potassium Level 3.7mmol/L (3.5-5.1) Chloride Level 107mmol/L (98-107) Carbon Dioxide Level 27mmol/L (21-32) Anion Gap 9 (6-14) Blood Urea Nitrogen 12mg/dL (7-20) Creatinine 1.0mg/dL (0.6-1.0) Estimated GFR (Cockcroft-Gault) 69.4 BUN/Creatinine Ratio 12 (6-20) Glucose Level 99mg/dL (70-99) Calcium Level 10.1mg/dL (8.5-10.1) Total Bilirubin 0.3mg/dL (0.2-1.0) Aspartate Amino Transferase (AST) 16U/L (15-37) Alanine Aminotransferase (ALT) 22U/L (14-59) Alkaline Phosphatase 77U/L (46-116) Total Protein 7.8g/dL (6.4-8.2) Albumin 3.7g/dL (3.4-5.0) Albumin/Globulin Ratio 0.9 (1.0-1.7) L Lipase 96U/L (73-393) Laboratory Tests 09/22/16 10:00 Laboratory Tests 09/22/16 10:00 EKG EKG [] Radiology/Procedures Radiology/Procedures [] Course & Med Decision Making Course & Med Decision Making Pertinent Labs and Imaging studies reviewed. (See chart for details) The patient presents with abdominal pain and urinary frequency for 1 week. She had been treated for a UTI, but the bacteria was resistant to the Bactrim prescribed. On exam, her abdomen is soft and nonsurgical with epigastric and suprapubic tenderness. There are no significant laboratory abnormalities. Urine still shows infection. She is discharged home with prescription for Cipro, Wickliffe , and Zofran. According to the sensitivities from her last urine, it should be sensitive to Cipro. She is instructed to follow up with her PCP after completing the antibiotic for recheck of her urine. Return precautions were discussed. She verbalizes understanding and agrees with plan. Dragon Disclaimer Dragon Disclaimer This electronic medical record was generated, in whole or in part, using a voice recognition dictation system. Departure Departure Impression: Primary Impression: UTI (urinary tract infection) Disposition: 01 HOME, SELF-CARE Condition: STABLE Referrals: RICHARD TORIBIO MD (PCP) Patient Instructions: Urinary Tract Infection, [id number] Additional Instructions: Please complete all the prescribed antibiotics. You may discontinue use of the previously prescribed antibiotics. Please take the prescribed pain medication as directed. Do not drive or operate heavy machinery while taking pain medication. Please follow-up with your primary care doctor after completion of the antibiotics for recheck of your urine. Return to emergency department if you have any new or concerning symptoms. Scripts Hydrocodone/Apap 5-325 ([place] 5-325 Tablet)1 Each Tablet1 Tab PO PRN Q6HRS PRN PAIN #12 TAB Ref 0 Prov:QUINTON CALDERON 09/22/16 Promethazine Hcl 25 Mg Tablet1 Tab PO PRN Q6HRS PRN NAUSEA/VOMITING #20 TAB Prov:QUINTON CALDERON 09/22/16 Ciprofloxacin Hcl (Cipro)500 Mg Tablet1 Tab PO BID #14 TAB Prov:QUINTON CALDERON 09/22/16 Problem Qualifiers Primary Impression: UTI (urinary tract infection) Urinary tract infection type: acute cystitis Hematuria presence: with hematuria Qualified Code: N30.01 - Acute cystitis with hematuria QUINTON CALDERON Sep 22, 2016 10:52
[2016-09-22] MEDS ORDERED: PROM25TA10 PO (11:01)
[2016-09-22] MEDS ORDERED: CIPR500T94 PO (11:01)
[2016-09-22] MEDS ORDERED: HYDR-971 PO (11:01)
[2016-09-22 11:10] VITALS: BP 136/78
== END 2016-09-22 11:15 | disposition home or self-care (01) ==
LOC: ER 08:28
DX: N30.01 Acute cystitis with hematuria (principal); I10 Essential (primary) hypertension; Z88.0 Allergy status to penicillin
CPT/HCPCS: 36415; 80053; 81001; 83690; 85027; 87086; 96361; 96374; 99284; J2405; J7030

== ENCOUNTER 2016-12-11 07:43 | Emergency (ER) | payer BC ==
[~2016-12-11] VITALS: Ht 167.6 cm; Wt 89.8 kg
[~2016-12-11 07:43] MED LIST changes: +CIPR500T94 PO; +HYDR-971 PO; +PROM25TA10 PO
[2016-12-11 08:00] VITALS: BP 134/85
[2016-12-11] MEDS ORDERED: IBUPROFEN 800 MG TABLET. PO ONE (08:15)
--- NOTE | 2016-12-11 08:29 | PHYS DOC ---
Past Medical History Past Medical History: GERD, High Cholesterol, Hypertension, Other Additional Past Medical Histor: gastritis Past Surgical History: , Hysterectomy Additional Past Surgical Histo: Endoscopy Alcohol Use: None Drug Use: None Adult General Chief Complaint Chief Complaint: sore throat, dysuria HPI HPI Patient is a 56 year old female who presents with 3 days of sore throat and feeling like food "gets stuck", clearing her throat. Denies sinus drainage or fever, no cough. She is tolerating food and drink. Last EGD in 2010 and reportedly normal. No SOB/chest pain. Pt also has dysuria. No flank pain or abdominal pain. Has not attempted any pain meds. No vag discharge. Review of Systems Review of Systems Constitutional: Denies fever or chills [] Eyes: Denies change in visual acuity, redness, or eye pain [] HENT: per hpi Respiratory: Denies cough or shortness of breath [] Cardiovascular: denies cp GI: Denies abdominal pain, nausea, vomiting, bloody stools or diarrhea [] : per hpi Musculoskeletal: Denies back pain or joint pain [] Integument: Denies rash or skin lesions [] Neurologic: Denies focal weakness or sensory changes [] Current Medications Current Medications Current Medications Medications (Trade) Dose Ordered Sig/Gayatri Start Time Stop Time Status Last Admin Dose Admin Diphenhydramine HCl (Benadryl) 25 mg 1X ONCE 12/11/16 09:45 12/11/16 09:46 DC 12/11/16 09:33 25 MG Ibuprofen (Motrin) 800 mg 1X ONCE 12/11/16 08:15 12/11/16 08:16 DC 12/11/16 08:15 800 MG Allergies Allergies Allergies Coded Allergies Type Severity Reaction Last Updated Verified Penicillins Allergy Severe swelling 08/17/16 Yes Physical Exam Physical Exam Constitutional: Well developed, well nourished, no acute distress, non-toxic appearance. [] HENT: Normocephalic, atraumatic, bilateral external ears normal, oropharynx moist, no oral exudates, nose normal.mild erythema of oropharnx without edema, uvula midline, no trismus. Clear speech Eyes: PERRLA, EOMI, conjunctiva normal, no discharge. [] Neck: Normal range of motion, no tenderness, supple, no stridor. [] Cardiovascular:Heart rate regular rhythm, no murmur [] Lungs & Thorax: Bilateral breath sounds clear to auscultation [] Abdomen: soft, no tenderness, no masses, no pulsatile masses. [] Skin: Warm, dry, no erythema, no rash. [] Back: No tenderness, no CVA tenderness. [] Extremities: No tenderness, no cyanosis, no clubbing, ROM intact, no edema. [] Neurologic: Alert and oriented X 3, normal motor function, normal sensory function, no focal deficits noted. [] Current Patient Data Vital Signs Vital Signs Date Time Temp Pulse Resp B/P (MAP) Pulse Ox O2 Delivery O2 Flow Rate FiO2 12/11/16 08:00 98.4 70 18 96 Room Air 98.4 Lab Values Laboratory Tests Test 12/11/16 08:00 Urine Collection Type Unknown Urine Color Yellow Urine Clarity Cloudy Urine pH 6.0 Urine Specific [place] 1.020 Urine Protein 100 mg/dL (NEG-TRACE) Urine Glucose (UA) Negative mg/dL (NEG) Urine Ketones (Stick) Negative mg/dL (NEG) Urine Blood Large (NEG) Urine Nitrite Negative (NEG) Urine Bilirubin Negative (NEG) Urine Urobilinogen Dipstick 0.2 mg/dL (0.2 mg/dL) Urine Leukocyte Esterase Large (NEG) Urine RBC 6-10 /HPF (0-2) Urine WBC >40 /HPF (0-4) Urine Squamous Epithelial Cells Mod /LPF Urine Bacteria Few /HPF (0-FEW) EKG EKG [] Radiology/Procedures Radiology/Procedures [] Course & Med Decision Making Course & Med Decision Making Pertinent Labs and Imaging studies reviewed. (See chart for details) sore throat appears consistent with viral pharyngitis. Will check urine. Ibuprofen po given. Pt had some itching and benadryl po given. + UTI, will treat with cipro for 5 days, 250 po bid. Dragon Disclaimer Dragon Disclaimer This electronic medical record was generated, in whole or in part, using a voice recognition dictation system. Departure Departure Impression: Primary Impression: Viral pharyngitis Additional Impression: UTI (urinary tract infection) Disposition: 01 HOME, SELF-CARE Condition: STABLE Referrals: UNKNOWN PCP NAME (PCP) Scripts Ciprofloxacin Hcl (CIPRO) 250 Mg Tablet 1 TAB PO BID, #10 TAB Prov: APRIL MC MD 12/11/16 Problem Qualifiers APRIL MC MD December 11, 2016 08:29
[2016-12-11 08:56] LABS: BILIRUBIN,URINE NEGATIVE (NEG); GLUCOSE,URINE NEGATIVE (NEG); NITRITE,URINE NEGATIVE (NEG); PROTEIN,URINE 100 mg/dL (NEG-TRACE); UROBILINOGEN,URINE 0.2 mg/dL (0.2 mg/dL)
[2016-12-11 09:24] LABS: BACTERIA,URINE FEW /HPF (0-FEW); SQUAMOUS EPITHELIAL CELL,UR MOD /LPF; WBC,URINE >40 /HPF (0-4)
[2016-12-11] MEDS ORDERED: diphenhydrAMINE HCL 25 MG CAPSULE PO ONE ×2 (09:32→09:45)
[2016-12-11] MEDS ORDERED: IBUP-1060 PO (09:48)
[2016-12-11] MEDS ORDERED: CIPR250T30 PO (09:48)
== END 2016-12-11 10:08 | disposition home or self-care (01) ==
LOC: ER 07:47
DX: N39.0 Urinary tract infection, site not specified (principal); J02.8 Acute pharyngitis due to other specified organisms; B97.89 Other viral agents as the cause of diseases classified elsewhere; E78.00 Pure hypercholesterolemia, unspecified; I10 Essential (primary) hypertension; K21.9 Gastro-esophageal reflux disease without esophagitis; Z98.890 Other specified postprocedural states; Z90.710 Acquired absence of both cervix and uterus; Z88.0 Allergy status to penicillin
CPT/HCPCS: 81001; 87086; 99284; Q0163; 87186

== ENCOUNTER 2017-02-11 09:00 | Inpatient (IN) | payer BC ==
[~2017-02-11] VITALS: Ht 167.6 cm; Wt 89.8 kg
[~2017-02-11 09:00] MED LIST changes: +CIPR250T30 PO; +IBUP-1060 PO
--- NOTE | 2017-02-11 09:15 | PHYS DOC ---
Past Medical History Past Medical History: GERD, High Cholesterol, Hypertension, Other Additional Past Medical Histor: gastritis Past Surgical History: , Hysterectomy Additional Past Surgical Histo: Endoscopy Alcohol Use: None Drug Use: None Adult General Chief Complaint Chief Complaint: CHEST WALL PAIN HPI HPI Patient is a 57 year old female presents emergency department stating that she has a 3 day history of left upper chest pain. She states that chart nature states it's a 9 out of 10. She has not taken anything for the pain and discomfort. She states that awoke her up early Saturday morning. Patient states that the pain does not radiate. She denies any shortness of breath or difficulty breathing. She denies any nausea vomiting. Patient denies any history of cardiac problems in the past denies any high blood pressure. Review of Systems Review of Systems Constitutional: Denies fever or chills [] Eyes: Denies change in visual acuity, redness, or eye pain [] HENT: Denies nasal congestion or sore throat [] Respiratory: Denies cough or shortness of breath [] Cardiovascular: No additional information not addressed in HPI [] GI: Denies abdominal pain, nausea, vomiting, bloody stools or diarrhea [] : Denies dysuria or hematuria [] Musculoskeletal: Denies back pain or joint pain [] Integument: Denies rash or skin lesions [] Neurologic: Denies headache, focal weakness or sensory changes [] Endocrine: Denies polyuria or polydipsia [] Current Medications Current Medications Current Medications Medications (Trade) Dose Ordered Sig/[facility] Start Time Stop Time Status Last Admin Dose Admin Aspirin (Children'S Aspirin) 324 mg 1X ONCE 02/11/17 09:30 02/11/17 09:31 DC 02/11/17 09:39 324 MG Allergies Allergies Allergies Coded Allergies Type Severity Reaction Last Updated Verified Penicillins Allergy Severe swelling 08/17/16 Yes Physical Exam Physical Exam Constitutional: Well developed, well nourished, no acute distress, non-toxic appearance. [] HENT: Normocephalic, atraumatic, bilateral external ears normal, oropharynx moist, no oral exudates, nose normal. [] Eyes: PERRLA, EOMI, conjunctiva normal, no discharge. [] Neck: Normal range of motion, no tenderness, supple, no stridor. [] Cardiovascular:Heart rate regular rhythm, no murmur [] Lungs & Thorax: Bilateral breath sounds clear to auscultation [] Abdomen: Bowel sounds hypoactive, soft, no tenderness, no masses, no pulsatile masses. [] Skin: Warm, dry, no erythema, no rash. [] Back: No tenderness Extremities: No tenderness, no cyanosis, no clubbing, ROM intact, no edema. [] Neurologic: Alert and oriented X 3, normal motor function, normal sensory function, no focal deficits noted. [] Psychologic: Affect normal, judgement normal, mood normal. [] Current Patient Data Vital Signs Vital Signs Date Time Temp Pulse Resp B/P (MAP) Pulse Ox O2 Delivery O2 Flow Rate FiO2 02/11/17 09:25 98.7 71 16 153/75 (101) 97 Room Air 98.7 Lab Values Laboratory Tests Test 02/11/17 09:45 White Blood Count 6.3 x10^3/uL (4.0-11.0) Red Blood Count 4.03 x10^6/uL (3.50-5.40) Hemoglobin 12.2 g/dL (12.0-15.5) Hematocrit 35.7 % (36.0-47.0) L Mean Corpuscular Volume 89 fL (79-100) Mean Corpuscular Hemoglobin 30 pg (25-35) Mean Corpuscular Hemoglobin Concent 34 g/dL (31-37) Red Cell Distribution Width 14.6 % (11.5-14.5) H Platelet Count 253 x10^3/uL (140-400) Neutrophils (%) (Auto) 48 % (31-73) Lymphocytes (%) (Auto) 45 % (24-48) Monocytes (%) (Auto) 6 % (0-9) Eosinophils (%) (Auto) 1 % (0-3) Basophils (%) (Auto) 1 % (0-3) Neutrophils # (Auto) 3.0 x10^3uL (1.8-7.7) Lymphocytes # (Auto) 2.9 x10^3/uL (1.0-4.8) Monocytes # (Auto) 0.4 x10^3/uL (0.0-1.1) Eosinophils # (Auto) 0.1 x10^3/uL (0.0-0.7) Basophils # (Auto) 0.0 x10^3/uL (0.0-0.2) Sodium Level 142 mmol/L (136-145) Potassium Level 3.9 mmol/L (3.5-5.1) Chloride Level 105 mmol/L (98-107) Carbon Dioxide Level 27 mmol/L (21-32) Anion Gap 10 (6-14) Blood Urea Nitrogen 13 mg/dL (7-20) Creatinine 0.7 mg/dL (0.6-1.0) Estimated GFR (Cockcroft-Gault) 104.4 BUN/Creatinine Ratio 19 (6-20) Glucose Level 114 mg/dL (70-99) H Calcium Level 10.0 mg/dL (8.5-10.1) Total Bilirubin 0.4 mg/dL (0.2-1.0) Aspartate Amino Transferase (AST) 19 U/L (15-37) Alanine Aminotransferase (ALT) 26 U/L (14-59) Alkaline Phosphatase 76 U/L (46-116) Troponin I Quantitative < 0.017 ng/mL (0.000-0.055) Total Protein 6.9 g/dL (6.4-8.2) Albumin 3.7 g/dL (3.4-5.0) Albumin/Globulin Ratio 1.2 (1.0-1.7) Laboratory Tests 02/11/17 09:45 Laboratory Tests 02/11/17 09:45 EKG EKG EKG completed at 0909 with SR with HR of 66 no ectopy noted. No STEMI per Dr Sood[] Radiology/Procedures Radiology/Procedures [] Course & Med Decision Making Course & Med Decision Making Pertinent Labs and Imaging studies reviewed. (See chart for details) CBC, CMP, troponin, chest x-ray within normal limits. Patient was provided with aspirin here in the emergency department. She still stating she is having chest pain that radiates into the left arm. Pressures within normal . She'll be provided with morphine. Patient will be admitted into the hospital as an observation patient. Spoke with in regards to observation status. Consult will be made to cardiology. [] Dragon Disclaimer Dragon Disclaimer This electronic medical record was generated, in whole or in part, using a voice recognition dictation system. Departure Departure Impression: Primary Impression: Chest pain Disposition: ADMITTED INPATIENT Admitting Physician: Deborah Ohara Condition: STABLE Referrals: UNKNOWN PCP NAME (PCP) CORY FENTON APRN Feb 11, 2017 09:15
--- NOTE | 2017-02-11 09:29 | RAD ---
Indication chest pain for a week. A single view of the chest was obtained. Comparison is made to an examination 6 months earlier. Heart size is unchanged. There is no gross congestive heart failure. Significant pleural fluid is not seen. Overall a significant change compared to the prior examination is not seen. IMPRESSION: No acute or focal process. No significant change
[2017-02-11] MEDS ORDERED: ASPIRIN CHEWABLE 81 MG TABLET. PO ONE (09:30)
--- NOTE | 2017-02-11 09:46 | EKG ---
[facility] [address] [place] [address] Test Date: 2017-02-11 Test Time: 09:09:49 Pat Name: NORMA VILLA Department: Room: Gender: F Rn Emergency: : 1960 Requested By: CORY FENTON Order Number: [id number] Reading MD: Measurements Intervals [place] Rate: 66 P: 58 LA: 164 QRS: 4 QRSD: 82 T: 25 QT: 430 QTc: 453 Interpretive Statements SINUS RHYTHM RI6.01 Unconfirmed report No previous ECG available for comparison
[2017-02-11 09:52] LABS: BASO % 1 % (0-3); EOS % 1 % (0-3); HEMATOCRIT 35.7 % (36.0-47.0); HEMOGLOBIN 12.2 g/dL (12.0-15.5); LYMPH # 2.9 x10^3/uL (1.0-4.8); LYMPH % 45 % (24-48); MEAN CORPUSCULAR HEMOGLOBIN 30 pg (25-35); MEAN CORPUSCULAR HGB CONC 34 g/dL (31-37); MEAN CORPUSCULAR VOLUME 89 fL (79-100); MONO % 6 % (0-9); NEUT % 48 % (31-73); PLATELET COUNT 253 x10^3/uL (140-400); RED BLOOD COUNT 4.03 x10^6/uL (3.50-5.40); RED CELL DISTRIBUTION WIDTH 14.6 % (11.5-14.5); WHITE BLOOD COUNT 6.3 x10^3/uL (4.0-11.0)
[2017-02-11 10:07] LABS: CREATININE 0.7 mg/dL (0.6-1.0); GFR 104.4; POTASSIUM 3.9 mmol/L (3.5-5.1)
[2017-02-11 10:13] LABS: ALBUMIN 3.7 g/dL (3.4-5.0); ALBUMIN/GLOBULIN RATIO 1.2 (1.0-1.7); TOTAL BILIRUBIN 0.4 mg/dL (0.2-1.0); TOTAL PROTEIN 6.9 g/dL (6.4-8.2)
[2017-02-11] MEDS ORDERED: ONDANSETRON PF 4 MG/2 ML VIAL. IV PRN ×2 (11:15→14:15)
[2017-02-11] MEDS ORDERED: NITROGLYCERIN SUBLINGUAL 0.4 MG BOTTLE OF 25. SL PRN (11:15)
[2017-02-11] MEDS ORDERED: MORPHINE SULFATE 2 MG/ML DISP.SYRIN. IV PRN ×2 (11:15→14:15)
--- NOTE | 2017-02-11 13:25 | PDOC2 ---
CARDIAC CONSULT DATE OF CONSULT Date of Consult DATE: 02/11/17 TIME: 13:16 REASON FOR CONSULT Reason for Consult: Chest pain REFERRING PHYSICIAN Referring Physician: Maral Avendaño APRN SOURCE Source: Chart review, Patient HISTORY OF PRESENT ILLNESS HISTORY OF PRESENT ILLNESS This is a 57 yo female who presented with complaints of chest pain. Patient reports pain has been ongoing since last . Describes as pulling or sticking in nature. Located in her central chest and radiated to her left chest. Associated with left arm numbness. Worsened by pressing on the left chest. No associated dizziness, diaphoresis, palpitation, SOA, or nausea/ vomiting. PAST MEDICAL HISTORY Cardiovascular: HTN, Hyperlipidemia Pulmonary: No pertinent hx GI: GERD, Gastritis Heme/Onc: No pertinent hx Hepatobiliary: No pertinent hx Psych: No pertinent hx Rheumatologic: No pertinent hx Infectious disease: No pertinent hx ENT: No pertinent hx Renal/: No pertinent hx Endocrine: No pertinent hx Dermatology: No pertinent hx PAST SURGICAL HISTORY Past Surgical History: Hysterectomy FAMILY HISTORY Family History: Other (noncontributory ) SOCIAL HISTORY Smoke: No ALCOHOL: none Drugs: None Lives: with Family CURRENT MEDICATIONS CURRENT MEDICATIONS Current Medications Medications (Trade) Dose Ordered Sig/Gayatri Route PRN Reason Start Time Stop Time Status Last Admin Dose Admin Aspirin (Children'S Aspirin) 324 mg 1X ONCE PO 02/11/17 09:30 02/11/17 09:31 DC 02/11/17 09:39 ALLERGIES ALLERGIES: Coded Allergies: Penicillins (Verified Allergy, Severe, swelling, 08/17/16) ROS Review of System 14 point ROS conducted with pertinent positives noted above in HPI. PHYSICAL EXAM General: Alert, Oriented X3, Cooperative HEENT: Atraumatic, Mucous membr. moist/pink Lungs: Clear to auscultation, Normal air movement, Other (left chest tenderness upon palpation) Heart: Regular rate, Normal S1, Normal S2 Abdomen: Soft, No tenderness Extremities: No edema, Normal pulses Skin: No significant lesion Neuro: Normal speech, Sensation intact Psych/Mental Status: Mental status NL, Mood NL MUSCULOSKELETAL: Full range of motion without pain VITALS VITALS Vital Signs Date Time Temp Pulse Resp B/P (MAP) Pulse Ox O2 Delivery O2 Flow Rate FiO2 02/11/17 12:37 62 20 154/87 (109) 97 Room Air 02/11/17 09:25 98.7 98.7 LABS Lab: Laboratory Tests Test 02/11/17 09:45 White Blood Count 6.3 x10^3/uL (4.0-11.0) Red Blood Count 4.03 x10^6/uL (3.50-5.40) Hemoglobin 12.2 g/dL (12.0-15.5) Hematocrit 35.7 % (36.0-47.0) Mean Corpuscular Volume 89 fL (79-100) Mean Corpuscular Hemoglobin 30 pg (25-35) Mean Corpuscular Hemoglobin Concent 34 g/dL (31-37) Red Cell Distribution Width 14.6 % (11.5-14.5) Platelet Count 253 x10^3/uL (140-400) Neutrophils (%) (Auto) 48 % (31-73) Lymphocytes (%) (Auto) 45 % (24-48) Monocytes (%) (Auto) 6 % (0-9) Eosinophils (%) (Auto) 1 % (0-3) Basophils (%) (Auto) 1 % (0-3) Neutrophils # (Auto) 3.0 x10^3uL (1.8-7.7) Lymphocytes # (Auto) 2.9 x10^3/uL (1.0-4.8) Monocytes # (Auto) 0.4 x10^3/uL (0.0-1.1) Eosinophils # (Auto) 0.1 x10^3/uL (0.0-0.7) Basophils # (Auto) 0.0 x10^3/uL (0.0-0.2) Sodium Level 142 mmol/L (136-145) Potassium Level 3.9 mmol/L (3.5-5.1) Chloride Level 105 mmol/L (98-107) Carbon Dioxide Level 27 mmol/L (21-32) Anion Gap 10 (6-14) Blood Urea Nitrogen 13 mg/dL (7-20) Creatinine 0.7 mg/dL (0.6-1.0) Estimated GFR (Cockcroft-Gault) 104.4 BUN/Creatinine Ratio 19 (6-20) Glucose Level 114 mg/dL (70-99) Calcium Level 10.0 mg/dL (8.5-10.1) Total Bilirubin 0.4 mg/dL (0.2-1.0) Aspartate Amino Transf (AST/SGOT) 19 U/L (15-37) Alanine Aminotransferase (ALT/SGPT) 26 U/L (14-59) Alkaline Phosphatase 76 U/L (46-116) Troponin I Quantitative < 0.017 ng/mL (0.000-0.055) Total Protein 6.9 g/dL (6.4-8.2) Albumin 3.7 g/dL (3.4-5.0) Albumin/Globulin Ratio 1.2 (1.0-1.7) ASSESSMENT/PLAN ASSESSMENT/PLAN 1. Chest pain, atypical; initial trop negative. EKG without significant acute changes 2. Hypertension; controlled 3. Hyperlipidemia; statin 4. GERD; PPI Recommendations 1. Check lipids, TSH 2. Trend troponin 3. Resume home antiHTN therapy. 4. Pain most probably MSK in origin as it is reproducible with palpation to left chest but given risk factors, will proceed with MPI in am to r/o ischemia 5. NPO p MN Problems: SHANELL FRANKS APRN Feb 11, 2017 13:25
[2017-02-11 14:10] VITALS: BP 137/63
--- NOTE | 2017-02-11 14:14 | PDOC1 ---
History and Physical Date of Admission Date of Admission 02/11/17 Identification/Chief Complaint Chief Complaint chest pain Problems: Source Source: Chart review, Patient History of Present Illness History of Present Illness Patient is a 57 year old female presents emergency department stating that she has a 3 day history of left upper chest pain. pt has HTN, HLD, GERD, said this is not like GERD. She was here in 07/2016 for similar complain for GERD. pT SAid since last , she started to have left side pressure chest pain, 04/07, no radiation, N/V or diaphoresis. Denies fever, chills, cough, abd pain. No position can make it better or worse. and not related to exertion. + tenderness. neg Troponin or EKG. echo 07/2016 normal. Past Medical History Cardiovascular: HTN, Hyperlipidemia Pulmonary: No pertinent hx CENTRAL NERVOUS SYSTEM: Other GI: GERD, Gastritis Heme/Onc: No pertinent hx Hepatobiliary: No pertinent hx Psych: No pertinent hx Rheumatologic: No pertinent hx Infectious disease: No pertinent hx ENT: No pertinent hx Renal/: No pertinent hx Endocrine: No pertinent hx Dermatology: No pertinent hx Past Surgical History Past Surgical History: Hysterectomy Family History Family History: Other (noncontributory ) Social History Smoke: No ALCOHOL: none Drugs: None Current Problem List Problem List Problems Medical Problems: (1) Chest pain Status: Acute Current Medications Current Medications Current Medications Medications (Trade) Dose Ordered Sig/Gayatri Start Time Stop Time Status Last Admin Dose Admin Aspirin (Children'S Aspirin) 324 mg 1X ONCE 02/11/17 09:30 02/11/17 09:31 DC 02/11/17 09:39 324 MG Aspirin (Ecotrin) 81 mg [id number] 02/12/17 08:00 Morphine Sulfate 2 mg PRN Q2HR PRN 02/11/17 11:15 02/12/17 11:14 Nitroglycerin (Nitrostat) 0.4 mg PRN Q5MIN PRN 02/11/17 11:15 02/12/17 11:14 Ondansetron HCl (Zofran) 4 mg PRN Q8HRS PRN 02/11/17 11:15 02/12/17 11:14 Allergies Allergies Allergies Coded Allergies Type Severity Reaction Last Updated Verified Penicillins Allergy Severe swelling 08/17/16 Yes ROS Review of System CONSTITUTIONAL: No fever or chills EYES: No recent changes SKIN: No rash or itching CARDIOVASCULAR: No chest pain, syncope, palpitations, or edema RESPIRATORY: No SOB or cough GASTROINTESTINAL: No nausea, vomiting or abdominal pain NEUROLOGICAL: No headaches or weakness ENDOCRINE: No cold or heat intolerance GENITOURINARY: No urgency or frequency of urination MUSCULOSKELETAL: No back pain or joint pain LYMPHATICS: No enlarged lymph nodes PSYCHIATRIC: No anxiety or depression Physical Exam Physical Exam GEN.: No apparent distress. Alert and oriented. HEENT: Head is normocephalic, atraumatic . NECK: Supple. LUNGS: Clear to auscultation. left chest tenderness. HEART: RRR, S1, S2 present. Peripheral pulses intact ABDOMEN: Soft, nontender. Positive bowel sounds. EXTREMITIES: Without any cyanosis. NEUROLOGIC: Normal speech, normal tone PSYCHIATRIC: Normal affect, normal mood. SKIN: No ulcerations Vitals Vitals Vital Signs Date Time Temp Pulse Resp B/P (MAP) Pulse Ox O2 Delivery O2 Flow Rate FiO2 02/11/17 12:37 62 20 154/87 (109) 97 Room Air 02/11/17 09:25 98.7 98.7 Labs Labs Laboratory Tests Test 02/11/17 09:45 White Blood Count 6.3 x10^3/uL (4.0-11.0) Red Blood Count 4.03 x10^6/uL (3.50-5.40) Hemoglobin 12.2 g/dL (12.0-15.5) Hematocrit 35.7 % (36.0-47.0) Mean Corpuscular Volume 89 fL (79-100) Mean Corpuscular Hemoglobin 30 pg (25-35) Mean Corpuscular Hemoglobin Concent 34 g/dL (31-37) Red Cell Distribution Width 14.6 % (11.5-14.5) Platelet Count 253 x10^3/uL (140-400) Neutrophils (%) (Auto) 48 % (31-73) Lymphocytes (%) (Auto) 45 % (24-48) Monocytes (%) (Auto) 6 % (0-9) Eosinophils (%) (Auto) 1 % (0-3) Basophils (%) (Auto) 1 % (0-3) Neutrophils # (Auto) 3.0 x10^3uL (1.8-7.7) Lymphocytes # (Auto) 2.9 x10^3/uL (1.0-4.8) Monocytes # (Auto) 0.4 x10^3/uL (0.0-1.1) Eosinophils # (Auto) 0.1 x10^3/uL (0.0-0.7) Basophils # (Auto) 0.0 x10^3/uL (0.0-0.2) Sodium Level 142 mmol/L (136-145) Potassium Level 3.9 mmol/L (3.5-5.1) Chloride Level 105 mmol/L (98-107) Carbon Dioxide Level 27 mmol/L (21-32) Anion Gap 10 (6-14) Blood Urea Nitrogen 13 mg/dL (7-20) Creatinine 0.7 mg/dL (0.6-1.0) Estimated GFR (Cockcroft-Gault) 104.4 BUN/Creatinine Ratio 19 (6-20) Glucose Level 114 mg/dL (70-99) Calcium Level 10.0 mg/dL (8.5-10.1) Total Bilirubin 0.4 mg/dL (0.2-1.0) Aspartate Amino Transf (AST/SGOT) 19 U/L (15-37) Alanine Aminotransferase (ALT/SGPT) 26 U/L (14-59) Alkaline Phosphatase 76 U/L (46-116) Troponin I Quantitative < 0.017 ng/mL (0.000-0.055) Total Protein 6.9 g/dL (6.4-8.2) Albumin 3.7 g/dL (3.4-5.0) Albumin/Globulin Ratio 1.2 (1.0-1.7) Laboratory Tests Test 02/11/17 09:45 White Blood Count 6.3 x10^3/uL (4.0-11.0) Red Blood Count 4.03 x10^6/uL (3.50-5.40) Hemoglobin 12.2 g/dL (12.0-15.5) Hematocrit 35.7 % (36.0-47.0) Mean Corpuscular Volume 89 fL (79-100) Mean Corpuscular Hemoglobin 30 pg (25-35) Mean Corpuscular Hemoglobin Concent 34 g/dL (31-37) Red Cell Distribution Width 14.6 % (11.5-14.5) Platelet Count 253 x10^3/uL (140-400) Neutrophils (%) (Auto) 48 % (31-73) Lymphocytes (%) (Auto) 45 % (24-48) Monocytes (%) (Auto) 6 % (0-9) Eosinophils (%) (Auto) 1 % (0-3) Basophils (%) (Auto) 1 % (0-3) Neutrophils # (Auto) 3.0 x10^3uL (1.8-7.7) Lymphocytes # (Auto) 2.9 x10^3/uL (1.0-4.8) Monocytes # (Auto) 0.4 x10^3/uL (0.0-1.1) Eosinophils # (Auto) 0.1 x10^3/uL (0.0-0.7) Basophils # (Auto) 0.0 x10^3/uL (0.0-0.2) Sodium Level 142 mmol/L (136-145) Potassium Level 3.9 mmol/L (3.5-5.1) Chloride Level 105 mmol/L (98-107) Carbon Dioxide Level 27 mmol/L (21-32) Anion Gap 10 (6-14) Blood Urea Nitrogen 13 mg/dL (7-20) Creatinine 0.7 mg/dL (0.6-1.0) Estimated GFR (Cockcroft-Gault) 104.4 BUN/Creatinine Ratio 19 (6-20) Glucose Level 114 mg/dL (70-99) Calcium Level 10.0 mg/dL (8.5-10.1) Total Bilirubin 0.4 mg/dL (0.2-1.0) Aspartate Amino Transf (AST/SGOT) 19 U/L (15-37) Alanine Aminotransferase (ALT/SGPT) 26 U/L (14-59) Alkaline Phosphatase 76 U/L (46-116) Troponin I Quantitative < 0.017 ng/mL (0.000-0.055) Total Protein 6.9 g/dL (6.4-8.2) Albumin 3.7 g/dL (3.4-5.0) Albumin/Globulin Ratio 1.2 (1.0-1.7) VTE Prophylaxis Ordered VTE Prophylaxis Devices: Yes VTE Pharmacological Prophylaxi: Yes Assessment/Plan Assessment/Plan chest pain, 2/2 muscular skeletal pain likely HTN HLD GERD, Gastritis obesity plan: fu with card check tsh, lipid panel cycle CE MPI as per card cont home meds dvt, gi ppx MIRI CRAVEN MD Feb 11, 2017 14:14
[2017-02-11] MEDS ORDERED: DOCUSATE SODIUM 100 MG CAPSULE. PO PRN (14:15)
[2017-02-11] MEDS ORDERED: HYDROcodone/APAP 5/325MG 1 TAB TABLET PO PRN (14:15)
[2017-02-11] MEDS ORDERED: traMADol 50 MG TABLET PO PRN (14:15)
[2017-02-11] MEDS ORDERED: hydrALAZINE 20 MG/ML VIAL. IVP PRN (14:15)
[2017-02-11] MEDS ORDERED: ACETAMINOPHEN 325 MG TABLET. PO PRN (14:15)
[2017-02-11] MEDS ORDERED: PROMETHAZINE 12.5 MG TABLET. PO PRN (14:15)
[2017-02-11] MEDS ORDERED: ENOXAPARIN 40 MG/0.4 ML SYRINGE. SQ SCH (15:00)
[2017-02-11] MEDS: LOSARTAN POTASSIUM 50 MG TABLET. PO SCH (15:07)
[2017-02-11] MEDS ORDERED: PANTOPRAZOLE 40 MG TABLET.DR. PO ONE (16:15)
[2017-02-11 19:00] VITALS: BP 107/80
[2017-02-11] MEDS ORDERED: ATORVASTATIN CALCIUM 20 MG TABLET PO SCH (21:00)
[2017-02-11 23:00] VITALS: BP 109/70
--- NOTE | 2017-02-12 01:55 | ACF ---
Admission Forms Criteria CARDIOLOGY GRG Clinical Indications for Admission to Inpatient Care ( Place 'X' for any and all applicable criteria): Hospital admission is needed for appropriate care of the patient because of ANY ONE of the following (1): [ ] I. Hemodynamic instability as indicated by ALL of the following (1)(2)(3) (4)(5) [ ]a) Vital signs or other findings not as expected for chronic patient condition or baseline [ ]b) Instability indicated by ANY ONE of the following: [ ]i) Hypotension [ ]ii) Symptomatic Tachycardia unresponsive to treatment ( e.g., analgesia, fluids, sedation as indicated) [ ]iii) Inadequate perfusion indicated by ANY ONE of the following: [ ] 1) Lactic acidosis (> 2 mmol/L) [ ] 2) New abnormal capillary refill (> 3 seconds) [ ] 3) Reduced urine output [ ] 4) New altered mental status [ ]iv) Orthostatic vital sign changes unresponsive to treatment (e.g., fluids) [ ]v) IV inotropic or vasopressor medication required to maintain adequate blood pressure or perfusion [ ] II. Severe heart failure as indicated by ANY ONE of the following(17)(18) [ ]a) Respiratory distress [ ]b) Hypotension [ ]c) Anasarca (refractory to outpatient therapy) [ ]d) Cardiac arrhythmias of immediate concern [ ]e) Myocardial ischemia [ ] III. Cardiac arrhythmias or findings of immediate concern indicated by ANY ONE of the following (19)(20): [ ] a) Heart rhythms that are inherently dangerous or unstable indicated by ANY ONE of the following (21)(22)(23): [ ] i) Resuscitated ventricular fibrillation or cardiac arrest [ ] ii) Ventricular escape rhythm [ ] iii) Sustained ventricular tachycardia (30 seconds or more of ventricular rhythm at greater than 100 beats per minute) [ ] iv) Nonsustained ventricular tachycardia and ANY ONE of the following: [ ] 1) Suspected cardiac ischemia as cause or consequence of ventricular tachycardia [ ] 2) In setting of acute myocarditis [ ] b) Unstable cardiac conduction defects indicated by ANY ONE of the following(23)(24)(25) [ ] i) Type II second-degree atrioventricular block [ ]ii) Third-degree atrioventricular block [ ]iii) New-onset left bundle branch block with suspected myocardial ischemia [ ]c) Any heart rhythm and ANY ONE of the following (21)(22)(26)(27) (28) [ ] i) Continuous long-term ECG monitoring needed (e.g., initiation of drug requiring monitoring for more than 24 hours) [ ] ii) Patient has automatic implanted cardioverter defibrillator that is repeatedly firing, malfunctioning, or in need of immediate adjustment of settings beyond the scope of ambulatory or observation care [ ]d) Heart rhythms of concern due to ANY ONE of the following: [ ] i) Hypotension [ ] ii) Respiratory distress [ ] iii) Association with other significant symptoms (e.g., bradycardia with syncope or ongoing dizziness, supraventricular tachycardia with chest pain (14)(15)(17) [ ] IV. Monitoring for cardiac contusion beyond the scope of observation care needed [A](30)(31)(32) [ ] V. Surgical or device complication (e.g., valve replacement complication , pacemaker dysfunction) (35)(41)(44)(45)(46) [ ] . Inpatient palliative care needed. [B](49) Also use Inpatient Palliative Care Criteria [ ] VII. Nonbacterial thrombotic (marantic) endocarditis (36)(43)(47)(48) [X] VIII. Cardiology condition, symptom, or finding for which emergency and observation care has failed or are not considered appropriate. [ ] IX. Acute valvular disease requiring inpatient as indicated by ANY ONE of the following (41) [ ]a) Acute valvular regurgitation (42) [ ]b) Noninfectious valvulitis (43) [ ]c) Obstructive valve thrombosis [ ]d) Paravalvular leak [ ]e) Other significant valvular disorder remaining after emergency or observation level of care (as appropriate) [ ]X. Pericardial disease requiring inpatient treatment as indicated by ANY ONE of the following (33)(34)(35)(36)(37) [ ]a) Suspected tamponade (38)(39)(40) [ ]b) Hemopericardium [ ]c) Other significant pericardial disorder remaining after emergency or observation level of care (as appropriate) [ ] XI. Cardiac ischemia beyond scope of emergency and observation care. [ ] XII. Hypertension requiring inpatient treatment as indicated by ANY ONE of the following (6)(7)(8) [ ]a) SBP greater than 220 mm Hg or DBP greater than 120 mmHg despite treatment [ ]b) SBP greater than 140 mm Hg or DBP greater than 100 mm Hg with evidence of acute end organ damage as indicated by ANY ONE of the following [ ] i) Encephalopathy [ ] ii) Acute renal failure as indicated by new onset of ANY ONE of the following (9)(10)(11)(12)(13) [ ]1) 3-fold rise in serum creatinine from baseline [ ]2) Serum creatinine greater than 4 mg/dL ( 354 micromoles/L) with acute rise greater than 0.5 mg/dL (44.2 micromoles/L) [ ]3) Reduction of more than 75% in estimated glomerular filtration rate from baseline [ ]4) Estimated glomerular filtration rate less than 35 mL/min/1.73m2 (0.59 mL/sec/1.73m2) in child up to 18 years of age [ ]5) Cessation of urine output indicated by ALL of the following [ ]A. Adequate volume status [ ]B. Inadequate urine output as indicated by ANY ONE of the following [ ]a. Urine output less than 0.3 mL/kg/hr for 24 hours [ ]b. Anuria (urine output less than 0.1 mL/kg/hr) for 12 hours [ ] iii) Aortic dissection [ ] iv) Myocardial Ischemia [ ] v) Left ventricular heart failure [ ]vi) Retinal Hemorrhage [ ]vii) Other significant finding [ ]c) Hypertension in child requiring inpatient treatment as indicated by ALL of the following(14)(15)(16) [ ] i) Outpatient treatment not effective, not available, or not appropriate [ ]ii) SBP or DBP greater than 95th percentile for age [ ]iii) Evidence of acute end organ damage as indicated by ANY ONE of the following [ ]1) Altered mental status [ ]2) Acute renal failure as indicated by new onset of ANY ONE of the following(9)(10)(11)(12)(13) [ ]A. 3-fold rise in serum creatinine from baseline [ ]B. Serum creatinine greater than 4 mg/dL (354 micromoles/L) with acute rise greater than 0.5 mg/dL (44.2 micromoles/L) [ ]C. Reduction of more than 75% in estimated glomerular filtration rate from baseline [ ]D. Estimated glomerular filtration rate less than 35 mL/min/1.73m2 (0.59 mL/sec/1.73m2) in child up to 18 years of age [ ]E. Cessation of urine output indicated by ALL of the following [ ]a. Adequate volume status [ ]b. Inadequate urine output as indicated by ANY ONE of the following [ ]i) Urine output less than 0.3 mL/kg/hr for 24 hours [ ]ii) Anuria ( urine output less than 0.1 mL/kg/hr) for 12 hours [ ]3) Severe headache [ ]4) Visual disturbance [ ]5) Retinal hemorrhage [ ]6) Other significant finding [ ]XIII. Complications of transplanted heart indicated by ANY ONE of the following(61): [ ]a) Acute graft rejection requiring inpatient management (eg, intravenous immunosuppression)(62)(63) [ ]b) Acute graft heart failure indicated by ANY ONE of the following(64): [ ]i) Hemodynamic instability [ ]ii) Cardiac arrhythmias of immediate concern [ ]iii) Pulmonary edema that is very severe (eg, mechanical ventilation needed, imminent or likely, need for 100% oxygen to keep oxygen saturation above 90%) [ ]iv) Pulmonary edema that is persistent as indicated by ALL of the following: [ ]1) New need for oxygen therapy to keep oxygen saturation above 90% (or increased FiO2 need from baseline) [ ]2) Has not improved sufficiently with emergency department or observation care IV diuretics or other heart failure treatments[E] [ ]v) Altered mental status that is severe or persistent [ ]vi) Increased creatinine (new on laboratory test) with reduction of more than 50% in estimated glomerular filtration rate from baseline [ ]vii) Progressively (ongoing) rising creatinine (known from past laboratory test) with reduction of more than 25% in estimated glomerular filtration rate from baseline [ ]viii) Acute renal failure [ ]ix) Acute peripheral ischemia (eg, examination shows pulseless, cool, mottled, or cyanotic extremity) [ ]x) Pulmonary artery catheter monitoring needed [ ]xi) Other sign or symptom of heart failure requiring inpatient treatment (ie, too severe or not responsive to outpatient and observation care treatment) [ ]c) Infection requiring inpatient management (eg, Hemodynamic instability, need for intravenous antimicrobial treatment)(66)(67)(68)(69)(70) [ ]d) Cardiac allograft vasculopathy requiring inpatient management ( eg evidence of cardiac ischemia)(71) [ ]e) Other complication of transplanted heart (eg, stroke, severe pulmonary hypertension, severe valvular dysfunction) requiring inpatient management(72) The original [facility] content created by [facility] has been revised. The portions of the content which have been revised are identified through the use of italic text or in bold, and [facility] has neither reviewed nor approved the modified material. All other unmodified content is copyright [facility]. Please see references footnoted in the original [facility] edition 2016 Admission Criteria Met?: Yes MARYAM LOVE Feb 12, 2017 01:55
[2017-02-12 03:00] VITALS: BP 128/82
[2017-02-12 05:57] LABS: BASO % 1 % (0-3); EOS % 2 % (0-3); HEMATOCRIT 37.5 % (36.0-47.0); HEMOGLOBIN 12.8 g/dL (12.0-15.5); LYMPH # 2.5 x10^3/uL (1.0-4.8); LYMPH % 46 % (24-48); MEAN CORPUSCULAR HEMOGLOBIN 30 pg (25-35); MEAN CORPUSCULAR HGB CONC 34 g/dL (31-37); MEAN CORPUSCULAR VOLUME 89 fL (79-100); MONO % 8 % (0-9); NEUT % 44 % (31-73); PLATELET COUNT 253 x10^3/uL (140-400); RED BLOOD COUNT 4.22 x10^6/uL (3.50-5.40); RED CELL DISTRIBUTION WIDTH 14.7 % (11.5-14.5); WHITE BLOOD COUNT 5.4 x10^3/uL (4.0-11.0)
[2017-02-12 06:09] LABS: CALCIUM 9.1 mg/dL (8.5-10.1); CHOLESTEROL/HDL RATIO 4.1; CREATININE 0.8 mg/dL (0.6-1.0); GFR 89.5
[2017-02-12] MEDS ORDERED: PANTOPRAZOLE 40 MG TABLET.DR. PO SCH (07:30)
[2017-02-12 07:40] VITALS: BP 128/82
[2017-02-12] MEDS ORDERED: REGADENOSON 0.4 MG/5 ML DISP.SYRIN. IV ONE ×2 (08:00→09:45)
[2017-02-12] MEDS ORDERED: ASPIRIN ENTERIC COATED 81 MG TABLET.DR. PO SCH (08:00)
[2017-02-12 08:19] VITALS: BP 120/76
[2017-02-12 11:37] VITALS: BP 115/73
--- NOTE | 2017-02-12 12:38 | PDOC ---
"PROGRESS NOTES Chief Complaint Chief Complaint chest pain, 2/2 muscular skeletal pain likely HTN HLD GERD, Gastritis obesity History of Present Illness History of Present Illness Out having MPI| CARds note reviewed Likely MSK, only hx is HTN If MPI neg dc home PLAN: HOme later if MPI neg Vitals Vitals Vital Signs Date Time Temp Pulse Resp B/P (MAP) Pulse Ox O2 Delivery O2 Flow Rate FiO2 02/12/17 11:37 97.4 75 19 115/73 (87) 93 Room Air 97.4 Physical Exam General: Alert, Oriented X3, Cooperative Heart: Regular rate, Normal S1, Normal S2 Abdomen: Soft, No tenderness Extremities: No edema, Normal pulses Skin: No significant lesion Labs LABS Laboratory Tests Test 02/11/17 17:05 02/11/17 23:00 02/12/17 05:35 Troponin I Quantitative < 0.017 ng/mL (0.000-0.055) < 0.017 ng/mL (0.000-0.055) White Blood Count 5.4 x10^3/uL (4.0-11.0) Red Blood Count 4.22 x10^6/uL (3.50-5.40) Hemoglobin 12.8 g/dL (12.0-15.5) Hematocrit 37.5 % (36.0-47.0) Mean Corpuscular Volume 89 fL (79-100) Mean Corpuscular Hemoglobin 30 pg (25-35) Mean Corpuscular Hemoglobin Concent 34 g/dL (31-37) Red Cell Distribution Width 14.7 % (11.5-14.5) Platelet Count 253 x10^3/uL (140-400) Neutrophils (%) (Auto) 44 % (31-73) Lymphocytes (%) (Auto) 46 % (24-48) Monocytes (%) (Auto) 8 % (0-9) Eosinophils (%) (Auto) 2 % (0-3) Basophils (%) (Auto) 1 % (0-3) Neutrophils # (Auto) 2.4 x10^3uL (1.8-7.7) Lymphocytes # (Auto) 2.5 x10^3/uL (1.0-4.8) Monocytes # (Auto) 0.4 x10^3/uL (0.0-1.1) Eosinophils # (Auto) 0.1 x10^3/uL (0.0-0.7) Basophils # (Auto) 0.0 x10^3/uL (0.0-0.2) Sodium Level 142 mmol/L (136-145) Potassium Level 4.0 mmol/L (3.5-5.1) Chloride Level 107 mmol/L (98-107) Carbon Dioxide Level 28 mmol/L (21-32) Anion Gap 7 (6-14) Blood Urea Nitrogen 12 mg/dL (7-20) Creatinine 0.8 mg/dL (0.6-1.0) Estimated GFR (Cockcroft-Gault) 89.5 Glucose Level 119 mg/dL (70-99) Calcium Level 9.1 mg/dL (8.5-10.1) Triglycerides Level 174 mg/dL (0-150) Cholesterol Level 172 mg/dL (0-200) LDL Cholesterol, Calculated 95 mg/dL (0-100) VLDL Cholesterol, Calculated 35 mg/dL (0-40) Non-HDL Cholesterol Calculated 130 mg/dL (0-129) HDL Cholesterol 42 mg/dL (40-60) Cholesterol/HDL Ratio 4.1 Thyroid Stimulating Hormone (TSH) 1.759 uIU/mL (0.358-3.74) Assessment and Plan Assessmemt and Plan Problems Medical Problems: (1) Chest pain Status: Acute Problems: Comment Review of Relevant I have reviewed the following items breana (where applicable) has been applied. Labs Laboratory Tests Test 02/11/17 09:45 02/11/17 17:05 02/11/17 23:00 02/12/17 05:35 White Blood Count 6.3 x10^3/uL (4.0-11.0) 5.4 x10^3/uL (4.0-11.0) Red Blood Count 4.03 x10^6/uL (3.50-5.40) 4.22 x10^6/uL (3.50-5.40) Hemoglobin 12.2 g/dL (12.0-15.5) 12.8 g/dL (12.0-15.5) Hematocrit 35.7 % (36.0-47.0) 37.5 % (36.0-47.0) Mean Corpuscular Volume 89 fL (79-100) 89 fL (79-100) Mean Corpuscular Hemoglobin 30 pg (25-35) 30 pg (25-35) Mean Corpuscular Hemoglobin Concent 34 g/dL (31-37) 34 g/dL (31-37) Red Cell Distribution Width 14.6 % (11.5-14.5) 14.7 % (11.5-14.5) Platelet Count 253 x10^3/uL (140-400) 253 x10^3/uL (140-400) Neutrophils (%) (Auto) 48 % (31-73) 44 % (31-73) Lymphocytes (%) (Auto) 45 % (24-48) 46 % (24-48) Monocytes (%) (Auto) 6 % (0-9) 8 % (0-9) Eosinophils (%) (Auto) 1 % (0-3) 2 % (0-3) Basophils (%) (Auto) 1 % (0-3) 1 % (0-3) Neutrophils # (Auto) 3.0 x10^3uL (1.8-7.7) 2.4 x10^3uL (1.8-7.7) Lymphocytes # (Auto) 2.9 x10^3/uL (1.0-4.8) 2.5 x10^3/uL (1.0-4.8) Monocytes # (Auto) 0.4 x10^3/uL (0.0-1.1) 0.4 x10^3/uL (0.0-1.1) Eosinophils # (Auto) 0.1 x10^3/uL (0.0-0.7) 0.1 x10^3/uL (0.0-0.7) Basophils # (Auto) 0.0 x10^3/uL (0.0-0.2) 0.0 x10^3/uL (0.0-0.2) Sodium Level 142 mmol/L (136-145) 142 mmol/L (136-145) Potassium Level 3.9 mmol/L (3.5-5.1) 4.0 mmol/L (3.5-5.1) Chloride Level 105 mmol/L (98-107) 107 mmol/L (98-107) Carbon Dioxide Level 27 mmol/L (21-32) 28 mmol/L (21-32) Anion Gap 10 (6-14) 7 (6-14) Blood Urea Nitrogen 13 mg/dL (7-20) 12 mg/dL (7-20) Creatinine 0.7 mg/dL (0.6-1.0) 0.8 mg/dL (0.6-1.0) Estimated GFR (Cockcroft-Gault) 104.4 89.5 BUN/Creatinine Ratio 19 (6-20) Glucose Level 114 mg/dL (70-99) 119 mg/dL (70-99) Calcium Level 10.0 mg/dL (8.5-10.1) 9.1 mg/dL (8.5-10.1) Total Bilirubin 0.4 mg/dL (0.2-1.0) Aspartate Amino Transf (AST/SGOT) 19 U/L (15-37) Alanine Aminotransferase (ALT/SGPT) 26 U/L (14-59) Alkaline Phosphatase 76 U/L (46-116) Troponin I Quantitative < 0.017 ng/mL (0.000-0.055) < 0.017 ng/mL (0.000-0.055) < 0.017 ng/mL (0.000-0.055) Total Protein 6.9 g/dL (6.4-8.2) Albumin 3.7 g/dL (3.4-5.0) Albumin/Globulin Ratio 1.2 (1.0-1.7) Triglycerides Level 174 mg/dL (0-150) Cholesterol Level 172 mg/dL (0-200) LDL Cholesterol, Calculated 95 mg/dL (0-100) VLDL Cholesterol, Calculated 35 mg/dL (0-40) Non-HDL Cholesterol Calculated 130 mg/dL (0-129) HDL Cholesterol 42 mg/dL (40-60) Cholesterol/HDL Ratio 4.1 Thyroid Stimulating Hormone (TSH) 1.759 uIU/mL (0.358-3.74) Laboratory Tests Test 02/11/17 17:05 02/11/17 23:00 02/12/17 05:35 Troponin I Quantitative < 0.017 ng/mL (0.000-0.055) < 0.017 ng/mL (0.000-0.055) White Blood Count 5.4 x10^3/uL (4.0-11.0) Red Blood Count 4.22 x10^6/uL (3.50-5.40) Hemoglobin 12.8 g/dL (12.0-15.5) Hematocrit 37.5 % (36.0-47.0) Mean Corpuscular Volume 89 fL (79-100) Mean Corpuscular Hemoglobin 30 pg (25-35) Mean Corpuscular Hemoglobin Concent 34 g/dL (31-37) Red Cell Distribution Width 14.7 % (11.5-14.5) Platelet Count 253 x10^3/uL (140-400) Neutrophils (%) (Auto) 44 % (31-73) Lymphocytes (%) (Auto) 46 % (24-48) Monocytes (%) (Auto) 8 % (0-9) Eosinophils (%) (Auto) 2 % (0-3) Basophils (%) (Auto) 1 % (0-3) Neutrophils # (Auto) 2.4 x10^3uL (1.8-7.7) Lymphocytes # (Auto) 2.5 x10^3/uL (1.0-4.8) Monocytes # (Auto) 0.4 x10^3/uL (0.0-1.1) Eosinophils # (Auto) 0.1 x10^3/uL (0.0-0.7) Basophils # (Auto) 0.0 x10^3/uL (0.0-0.2) Sodium Level 142 mmol/L (136-145) Potassium Level 4.0 mmol/L (3.5-5.1) Chloride Level 107 mmol/L (98-107) Carbon Dioxide Level 28 mmol/L (21-32) Anion Gap 7 (6-14) Blood Urea Nitrogen 12 mg/dL (7-20) Creatinine 0.8 mg/dL (0.6-1.0) Estimated GFR (Cockcroft-Gault) 89.5 Glucose Level 119 mg/dL (70-99) Calcium Level 9.1 mg/dL (8.5-10.1) Triglycerides Level 174 mg/dL (0-150) Cholesterol Level 172 mg/dL (0-200) LDL Cholesterol, Calculated 95 mg/dL (0-100) VLDL Cholesterol, Calculated 35 mg/dL (0-40) Non-HDL Cholesterol Calculated 130 mg/dL (0-129) HDL Cholesterol 42 mg/dL (40-60) Cholesterol/HDL Ratio 4.1 Thyroid Stimulating Hormone (TSH) 1.759 uIU/mL (0.358-3.74) Medications Current Medications Aspirin (Children'S Aspirin) 324 mg 1X ONCE PO Last administered on 02/11/17 09:39; Start 02/11/17 at 09:30; Stop 02/11/17 at 09:31; Status DC Ondansetron HCl (Zofran) 4 mg PRN Q8HRS PRN IV NAUSEA/VOMITING; Start 02/11/17 at 11:15; Stop 02/11/17 at 14:13; Status DC Morphine Sulfate 2 mg PRN Q2HR PRN IV PAIN; Start 02/11/17 at 11:15; Stop 02/11 at 14:13; Status DC Nitroglycerin (Nitrostat) 0.4 mg PRN Q5MIN PRN SL CHEST PAIN Last administered on 02/11/17 16:39; Start 02/11/17 at 11:15; Stop 02/12/17 at 11:14; Status DC Aspirin (Ecotrin) 81 mg DAILYWBKFT PO ; Start 02/12/17 at 08:00 Atorvastatin Calcium (Lipitor) 20 mg QHS PO Last administered on 02/11/17 20: 15; Start 02/11/17 at 21:00 Acetaminophen/ Hydrocodone Bitart (Lortab 5/325) 1 tab PRN Q6HRS PRN PO PAIN Last administered on 02/11/17 15:40; Start 02/11/17 at 14:15 Losartan Potassium (Cozaar) 50 mg DAILY PO Last administered on 02/11/17 15:07 ; Start 02/11/17 at 15:00 Pantoprazole Sodium (Protonix) 40 mg DAILYAC PO ; Start 02/12/17 at 07:30 Promethazine HCl (Phenergan) 25 mg PRN Q6HRS PRN PO NAUSEA/VOMITING; Start at 14:15 Acetaminophen (Tylenol) 650 mg PRN Q6HRS PRN PO FEVER Last administered on 02/11 20:15; Start 02/11/17 at 14:15 Ondansetron HCl (Zofran) 4 mg PRN Q6HRS PRN IV NAUSEA/VOMITING; Start 02/11/17 at 14:15 Morphine Sulfate 2 mg PRN Q2HR PRN IV PAIN Last administered on 02/12/17 08:45 ; Start 02/11/17 at 14:15 Tramadol HCl (Ultram) 50 mg PRN Q6HRS PRN PO PAIN; Start 02/11/17 at 14:15 Hydralazine HCl (Apresoline) 10 mg PRN Q4HRS PRN IVP ELEVATED BP, SEE COMMENTS ; Start 02/11/17 at 14:15 Docusate Sodium (Colace) 100 mg PRN DAILY PRN PO CONSTIPATION; Start 02/11/17 at 14:15 Enoxaparin Sodium (Lovenox 40mg Syringe) 40 mg Q24H SQ ; Start 02/11/17 at 15:00 Pantoprazole Sodium (Protonix) 40 mg 1X ONCE PO Last administered on 16:33; Start 02/11/17 at 16:15; Stop 02/11/17 at 16:16; Status DC Regadenoson (Lexiscan) 0.4 mg 1X ONCE IV Last administered on 02/12/17 11:24 ; Start 02/12/17 at 08:00; Stop 02/12/17 at 08:01; Status DC Regadenoson (Lexiscan) 0.4 mg 1X ONCE IV ; Start 02/12/17 at 09:45; Stop at 09:46; Status DC Active Scripts Active Cipro (Ciprofloxacin Hcl) 250 Mg Tablet 1 Tab PO BID [place] 5-325 Tablet (Acetaminophen/Hydrocodone Bitart) 1 Each Tablet 1 Tab PO PRN Q6HRS PRN Promethazine Hcl 25 Mg Tablet 1 Tab PO PRN Q6HRS PRN Cipro (Ciprofloxacin Hcl) 500 Mg Tablet 1 Tab PO BID Pyridium (Phenazopyridine Hcl) 200 Mg Tablet 200 Mg PO TID Bactrim Ds Tablet (Sulfamethoxazole/Trimethoprim) 1 Each Tablet 1 Tab PO BID Zofran (Ondansetron Hcl) 4 Mg Tablet 1-2 Tab PO Q6HRS PRN Azithromycin Tablet (Azithromycin) 250 Mg Tablet 250 Mg PO DAILY Take 2 tabs day 1, then 1 tab daily days 2-5. Reported Losartan Potassium 50 Mg Tablet 50 Mg PO DAILY Lipitor (Atorvastatin Calcium) 20 Mg Tablet 1 Tab PO DAILY Omeprazole 40 Mg Capsule.dr 40 Mg PO DAILY Vitals/I & O Vital Sign - Last 24 Hours 02/11/17 02/11/17 02/11/17 02/11/17 14:10 14:10 15:07 15:40 Temp 98.1 98.1 98.1 98.1 Pulse 63 63 62 Resp 18 18 B/P (MAP) 137/63 (87) 137/63 (87) 154/87 Pulse Ox 98 98 98 O2 Delivery Room Air Room Air Room Air 02/11/17 02/11/17 02/11/17 02/11/17 16:39 19:00 19:42 20:00 Temp 98.1 98.1 Pulse 62 62 Resp 18 B/P (MAP) 154/87 107/80 (89) Pulse Ox 99 98 O2 Delivery Room Air Room Air 02/11/17 02/12/17 02/12/17 02/12/17 23:00 03:00 07:40 08:00 Temp 98.0 98.5 98.1 98.0 98.5 98.1 Pulse 64 60 60 Resp 18 18 18 B/P (MAP) 109/70 (83) 128/82 (97) 128/82 (97) Pulse Ox 98 98 98 O2 Delivery Room Air Room Air Room Air Room Air 02/12/17 02/12/17 02/12/17 08:19 08:45 11:37 Temp 98.1 97.4 98.1 97.4 Pulse 64 75 Resp 19 19 B/P (MAP) 120/76 (91) 115/73 (87) Pulse Ox 97 97 93 O2 Delivery Room Air Room Air Room Air Intake and Output 02/11/17 02/11/17 02/12/17 15:00 23:00 07:00 Intake Total 300 ml 220 ml Balance 300 ml 220 ml BIJAL JOLLY MD Feb 12, 2017 12:38"
--- NOTE | 2017-02-12 12:40 | PDOC3 ---
Discharge Summary Visit Information Date of Admission: Feb 11, 2017 Date of Discharge: Feb 12, 2017 Admitting Diagnosis Comment: chest pain, 2/2 muscular skeletal pain likely HTN HLD GERD, Gastritis obesity Final Diagnosis Problems Medical Problems: (1) Chest pain Status: Acute Brief Hospital Course Allergies Allergies Coded Allergies Type Severity Reaction Last Updated Verified Penicillins Allergy Severe swelling 08/17/16 Yes Vital Signs Vital Signs Date Time Temp Pulse Resp B/P (MAP) Pulse Ox O2 Delivery O2 Flow Rate FiO2 02/12/17 11:37 97.4 75 19 115/73 (87) 93 Room Air 97.4 Lab Results Laboratory Tests Test 02/11/17 09:45 02/11/17 17:05 02/11/17 23:00 02/12/17 05:35 White Blood Count 6.3 x10^3/uL (4.0-11.0) 5.4 x10^3/uL (4.0-11.0) Red Blood Count 4.03 x10^6/uL (3.50-5.40) 4.22 x10^6/uL (3.50-5.40) Hemoglobin 12.2 g/dL (12.0-15.5) 12.8 g/dL (12.0-15.5) Hematocrit 35.7 % (36.0-47.0) 37.5 % (36.0-47.0) Mean Corpuscular Volume 89 fL (79-100) 89 fL (79-100) Mean Corpuscular Hemoglobin 30 pg (25-35) 30 pg (25-35) Mean Corpuscular Hemoglobin Concent 34 g/dL (31-37) 34 g/dL (31-37) Red Cell Distribution Width 14.6 % (11.5-14.5) 14.7 % (11.5-14.5) Platelet Count 253 x10^3/uL (140-400) 253 x10^3/uL (140-400) Neutrophils (%) (Auto) 48 % (31-73) 44 % (31-73) Lymphocytes (%) (Auto) 45 % (24-48) 46 % (24-48) Monocytes (%) (Auto) 6 % (0-9) 8 % (0-9) Eosinophils (%) (Auto) 1 % (0-3) 2 % (0-3) Basophils (%) (Auto) 1 % (0-3) 1 % (0-3) Neutrophils # (Auto) 3.0 x10^3uL (1.8-7.7) 2.4 x10^3uL (1.8-7.7) Lymphocytes # (Auto) 2.9 x10^3/uL (1.0-4.8) 2.5 x10^3/uL (1.0-4.8) Monocytes # (Auto) 0.4 x10^3/uL (0.0-1.1) 0.4 x10^3/uL (0.0-1.1) Eosinophils # (Auto) 0.1 x10^3/uL (0.0-0.7) 0.1 x10^3/uL (0.0-0.7) Basophils # (Auto) 0.0 x10^3/uL (0.0-0.2) 0.0 x10^3/uL (0.0-0.2) Sodium Level 142 mmol/L (136-145) 142 mmol/L (136-145) Potassium Level 3.9 mmol/L (3.5-5.1) 4.0 mmol/L (3.5-5.1) Chloride Level 105 mmol/L (98-107) 107 mmol/L (98-107) Carbon Dioxide Level 27 mmol/L (21-32) 28 mmol/L (21-32) Anion Gap 10 (6-14) 7 (6-14) Blood Urea Nitrogen 13 mg/dL (7-20) 12 mg/dL (7-20) Creatinine 0.7 mg/dL (0.6-1.0) 0.8 mg/dL (0.6-1.0) Estimated GFR (Cockcroft-Gault) 104.4 89.5 BUN/Creatinine Ratio 19 (6-20) Glucose Level 114 mg/dL (70-99) 119 mg/dL (70-99) Calcium Level 10.0 mg/dL (8.5-10.1) 9.1 mg/dL (8.5-10.1) Total Bilirubin 0.4 mg/dL (0.2-1.0) Aspartate Amino Transf (AST/SGOT) 19 U/L (15-37) Alanine Aminotransferase (ALT/SGPT) 26 U/L (14-59) Alkaline Phosphatase 76 U/L (46-116) Troponin I Quantitative < 0.017 ng/mL (0.000-0.055) < 0.017 ng/mL (0.000-0.055) < 0.017 ng/mL (0.000-0.055) Total Protein 6.9 g/dL (6.4-8.2) Albumin 3.7 g/dL (3.4-5.0) Albumin/Globulin Ratio 1.2 (1.0-1.7) Triglycerides Level 174 mg/dL (0-150) Cholesterol Level 172 mg/dL (0-200) LDL Cholesterol, Calculated 95 mg/dL (0-100) VLDL Cholesterol, Calculated 35 mg/dL (0-40) Non-HDL Cholesterol Calculated 130 mg/dL (0-129) HDL Cholesterol 42 mg/dL (40-60) Cholesterol/HDL Ratio 4.1 Thyroid Stimulating Hormone (TSH) 1.759 uIU/mL (0.358-3.74) Laboratory Tests Test 02/11/17 17:05 02/11/17 23:00 02/12/17 05:35 Troponin I Quantitative < 0.017 ng/mL (0.000-0.055) < 0.017 ng/mL (0.000-0.055) White Blood Count 5.4 x10^3/uL (4.0-11.0) Red Blood Count 4.22 x10^6/uL (3.50-5.40) Hemoglobin 12.8 g/dL (12.0-15.5) Hematocrit 37.5 % (36.0-47.0) Mean Corpuscular Volume 89 fL (79-100) Mean Corpuscular Hemoglobin 30 pg (25-35) Mean Corpuscular Hemoglobin Concent 34 g/dL (31-37) Red Cell Distribution Width 14.7 % (11.5-14.5) Platelet Count 253 x10^3/uL (140-400) Neutrophils (%) (Auto) 44 % (31-73) Lymphocytes (%) (Auto) 46 % (24-48) Monocytes (%) (Auto) 8 % (0-9) Eosinophils (%) (Auto) 2 % (0-3) Basophils (%) (Auto) 1 % (0-3) Neutrophils # (Auto) 2.4 x10^3uL (1.8-7.7) Lymphocytes # (Auto) 2.5 x10^3/uL (1.0-4.8) Monocytes # (Auto) 0.4 x10^3/uL (0.0-1.1) Eosinophils # (Auto) 0.1 x10^3/uL (0.0-0.7) Basophils # (Auto) 0.0 x10^3/uL (0.0-0.2) Sodium Level 142 mmol/L (136-145) Potassium Level 4.0 mmol/L (3.5-5.1) Chloride Level 107 mmol/L (98-107) Carbon Dioxide Level 28 mmol/L (21-32) Anion Gap 7 (6-14) Blood Urea Nitrogen 12 mg/dL (7-20) Creatinine 0.8 mg/dL (0.6-1.0) Estimated GFR (Cockcroft-Gault) 89.5 Glucose Level 119 mg/dL (70-99) Calcium Level 9.1 mg/dL (8.5-10.1) Triglycerides Level 174 mg/dL (0-150) Cholesterol Level 172 mg/dL (0-200) LDL Cholesterol, Calculated 95 mg/dL (0-100) VLDL Cholesterol, Calculated 35 mg/dL (0-40) Non-HDL Cholesterol Calculated 130 mg/dL (0-129) HDL Cholesterol 42 mg/dL (40-60) Cholesterol/HDL Ratio 4.1 Thyroid Stimulating Hormone (TSH) 1.759 uIU/mL (0.358-3.74) Brief Hospital Course Ms. Bonilla is a 57 old F, only hTN as risk factor for CAD, admitted for CP, EKG and trops neg, likely MSK per cards assessment, IF mpi neg, home today 2 notes today Discharge Information Condition at Discharge: Improved, Stable Disposition/Orders: D/C to Home Scheduled Atorvastatin Calcium (Lipitor), 1 TAB PO DAILY, (Reported) Azithromycin (Azithromycin Tablet), 250 MG PO DAILY Ciprofloxacin Hcl (Cipro), 1 TAB PO BID Ciprofloxacin Hcl (Cipro), 1 TAB PO BID Losartan Potassium (Losartan Potassium), 50 MG PO DAILY, (Reported) Omeprazole (Omeprazole), 40 MG PO DAILY, (Reported) Phenazopyridine Hcl (Pyridium), 200 MG PO TID Sulfamethoxazole/Trimethoprim (Bactrim Ds Tablet), 1 TAB PO BID Scheduled PRN Hydrocodone/Apap 5-325 ([place] 5-325 Tablet), 1 TAB PO PRN Q6HRS PRN for PAIN Ondansetron Hcl (Zofran), 1-2 TAB PO Q6HRS PRN for NAUSEA/VOMITING Promethazine Hcl (Promethazine Hcl), 1 TAB PO PRN Q6HRS PRN for NAUSEA/VOMITING BIJAL JOLLY MD Feb 12, 2017 12:40
--- NOTE | 2017-02-12 13:57 | PDOC ---
CARDIO Progress Notes Date and Time Date of Service 02/12/17 Time of Evaluation 1050 Subjective Subjective: No Chest Pain, No shortness of breath, No Palpitations, Other ( left arm pain with movement ) Vitals Vitals Vital Signs Date Time Temp Pulse Resp B/P (MAP) Pulse Ox O2 Delivery O2 Flow Rate FiO2 02/12/17 11:37 97.4 75 19 115/73 (87) 93 Room Air 97.4 Weight Weight [ ] Input and Output Intake and Output Intake and Output 02/12/17 06:59 Intake Total 520 ml Balance 520 ml Intake Oral 520 ml # Voids 4 Laboratory Labs Laboratory Tests Test 02/11/17 17:05 02/11/17 23:00 02/12/17 05:35 Troponin I Quantitative < 0.017 ng/mL (0.000-0.055) < 0.017 ng/mL (0.000-0.055) White Blood Count 5.4 x10^3/uL (4.0-11.0) Red Blood Count 4.22 x10^6/uL (3.50-5.40) Hemoglobin 12.8 g/dL (12.0-15.5) Hematocrit 37.5 % (36.0-47.0) Mean Corpuscular Volume 89 fL (79-100) Mean Corpuscular Hemoglobin 30 pg (25-35) Mean Corpuscular Hemoglobin Concent 34 g/dL (31-37) Red Cell Distribution Width 14.7 % (11.5-14.5) Platelet Count 253 x10^3/uL (140-400) Neutrophils (%) (Auto) 44 % (31-73) Lymphocytes (%) (Auto) 46 % (24-48) Monocytes (%) (Auto) 8 % (0-9) Eosinophils (%) (Auto) 2 % (0-3) Basophils (%) (Auto) 1 % (0-3) Neutrophils # (Auto) 2.4 x10^3uL (1.8-7.7) Lymphocytes # (Auto) 2.5 x10^3/uL (1.0-4.8) Monocytes # (Auto) 0.4 x10^3/uL (0.0-1.1) Eosinophils # (Auto) 0.1 x10^3/uL (0.0-0.7) Basophils # (Auto) 0.0 x10^3/uL (0.0-0.2) Sodium Level 142 mmol/L (136-145) Potassium Level 4.0 mmol/L (3.5-5.1) Chloride Level 107 mmol/L (98-107) Carbon Dioxide Level 28 mmol/L (21-32) Anion Gap 7 (6-14) Blood Urea Nitrogen 12 mg/dL (7-20) Creatinine 0.8 mg/dL (0.6-1.0) Estimated GFR (Cockcroft-Gault) 89.5 Glucose Level 119 mg/dL (70-99) Calcium Level 9.1 mg/dL (8.5-10.1) Triglycerides Level 174 mg/dL (0-150) Cholesterol Level 172 mg/dL (0-200) LDL Cholesterol, Calculated 95 mg/dL (0-100) VLDL Cholesterol, Calculated 35 mg/dL (0-40) Non-HDL Cholesterol Calculated 130 mg/dL (0-129) HDL Cholesterol 42 mg/dL (40-60) Cholesterol/HDL Ratio 4.1 Thyroid Stimulating Hormone (TSH) 1.759 uIU/mL (0.358-3.74) Physical Exam HEENT: Neck Supple W Full Motion Chest: Symmetric LUNGS: Clear to Auscultation Heart: S1S2, RRR, no murmurs Abdomen: Soft N/T Extremities: No Edema, No Calf Tenderness Neurology: alert, oriented, follow commands Assessment Assessment 1. Chest pain, atypical; Troponin series normal, AMI ruled out. EKG without significant acute changes. MPI underway today. If negative, may discharge from a CV standpoint. 2. Hypertension; controlled 3. Hyperlipidemia; LDL 95; statin therapy 4. GERD; PPI SHANELL FRANKS APRN Feb 12, 2017 13:57
--- NOTE | 2017-02-12 15:10 | RAD ---
APPROVED REPORT Test Type: Pharmacological Stress Nurse/Tech: Lucila Mabry R.N. Test Indications: chest pain Cardiac History: Hypertension Medications: See Electronic Medical Record Medical History: See Electronic Medical Record Resting ECG: sinus arrythmia Resting Heart Rate: 60 bpm Resting Blood Pressure: 144/83mmHg Pretest Chest Pain: No chest pain Nurse/Tech Notes S1S2, lungs sound clear Consent: The procedure was explained to the patient in lay terms. Informed consent was witnessed. Ramírez eout was entered into [employer]. History and Stress Test performed by Lucila Mabry R.N. Pharm. Details Pharmacologic stress testing was performed using 0.4mg per 5ml of regadenoson given intravenously ove r 7-10 seconds. Stress Symptoms Dyspnea POST EXERCISE Reason for Termination: Infusion complete Max HR: 108 bpm Max Blood Pressure: 170/93mmHg Blood Pressure response to exercise: Normal blood pressure response during stress. Chest Pain: No. Arrhythmia: No. ST Change: No. INTERPRETATION Stress EKG Conclusion: Baseline EKG showed sinus rhythm. No ischemic changes at peak stress. No arr hythmias. Imaging Protocol IMAGE PROTOCOL: Rest Tc-99m/stress Tc-99m 1 day Rest: Stress: Viability: Radiopharm.Tc99m [id number] Sestamibi Dose11.6mCi 34mCi Duration 15min. 12min. Img Date 02/12/2017 02/12/2017 Inj-Img [id number]. 60min. Rest Admin Site:IV - Right HandAdministrator:VIET Fischer Stress Admin Site: IV - Right HandAdministrator: VIET Fischer STRESS DATA End Diast. Vol.90.0mlAv. Heart Rate55.0bpm End Syst. Vol.26.0mlCO Index BSA0.0L/min Myocardial Mqab641.0gEject. Rufeoxif10.0% Stress Rates Pk. Fill Rate2.69EDV/secLVtime Pk. Fill 212.55msec Pk. Empty Rate3.22ESV/secLVtime Pk. Yvfhr274.92msec 07/31 Pk. Fill1.02EDV/sec Stress Scores Regional WT1.00Summed WT7.00 Regional WM0.00Summed WM3.00 Study quality was good. Left Ventricular size was Normal at Rest and Stress. Lung uptake was Normal. Left Ventricular ejection fraction is 71%. The rest and stress images show normal perfusion, normal contraction and thickening. LV Perf. Quant 17 Seg. SSS1.00 17 Seg. SRS0.00 17 Seg. SDS1.00 Stress Defect Extent (% LAD)0.00Rest Defect Extent (% LAD)0.00Rev. Defect Extent (% LAD)0.00 Stress Defect Extent (% LCX) 6.30Rest Defect Extent (% LCX)0.00Rev. Defect Extent (% LCX)0.00 Stress Defect Extent (% RCA)0.00Rest Defect Extent (% RCA)0.00Rev. Defect Extent (% RCA)0.00 Stress Defect Extent (% FORTUNATO)1.10Rest Defect Extent (% FORTUNATO)0.00Rev. Defect Extent (% FORTUNATO)0.00 Conclusion 1. Regadenoson cardioisotope stress test did not show any evidence of ischemia or infarct. 2. Normal left ventricular systolic function with ejection fraction calculated at 71%. 3. Low risk for cardiac events.
[2017-02-12 17:59] VITALS: BP 115/73
[2017-02-12] MEDS: LOSARTAN POTASSIUM 50 MG TABLET. PO SCH (17:59)
== END 2017-02-12 18:18 | disposition home or self-care (01) | DRG 313 ==
LOC: ER 09:00 → 6 SOUTH 10:48
PROVIDERS: ADMIT Internal Medicine; ATTEND Internal Medicine
DX: R07.89 Other chest pain (principal); E66.9 Obesity, unspecified; E78.00 Pure hypercholesterolemia, unspecified; E78.5 Hyperlipidemia, unspecified; I10 Essential (primary) hypertension; K21.9 Gastro-esophageal reflux disease without esophagitis; K29.70 Gastritis, unspecified, without bleeding; Z90.710 Acquired absence of both cervix and uterus; Z88.0 Allergy status to penicillin; Z68.32 Body mass index [BMI] 32.0-32.9, adult
CPT/HCPCS: 36415; 71010; 78452; 80048; 80053; 80061; 84443; 84484; 85027; 93005; 93017; 96374; 96375; 96376; A9500; G0379; J2270; J2785; 99285-25

== ENCOUNTER → 2017-05-15 | Outpatient (CLI) | payer BC ==
--- NOTE | 2017-05-15 12:48 | RAD ---
DATE: 05/15/2017. EXAM: DIGITAL SCREEN BILAT W/CAD. HISTORY: Routine mammographic screening. COMPARISON: This is the baseline study. This study was interpreted with the benefit of Computerized Aided Detection (CAD). FINDINGS: The breast parenchyma is heterogeneously dense, which could reduce sensitivity of mammography. Breast parenchyma level C.. A small nodule just medial to the nipple line on the left CC view may represent a left no but it is indeterminate. This is likely superior to the nipple line on MLO view. There are no suspicious masses, microcalcifications or architectural distortion on the right. BI-RADS CATEGORY: 0 INCOMPLETE: NEEDS ADDITIONAL IMAGING EVALUATION AND/OR PRIOR MAMMOGRAMS FOR COMPARISON.. RECOMMENDED FOLLOW-UP: ADD ADDITIONAL IMAGING. Spot compression of a nodule slightly medially and superiorly on the left. Sonography if necessary. See annotations. PQRS compliance statement: Patient information was entered into a reminder system with a target due date (now) for the next mammogram. Mammography is a sensitive method for finding small breast cancers, but it does not detect them all and is not a substitute for careful clinical examination. A negative mammogram does not negate a clinically suspicious finding and should not result in delay in biopsying a clinically suspicious abnormality. "Our facility is accredited by the [employer] Mammography Program."
== END | disposition home or self-care (01) ==
LOC: MAMMO 10:13
PROVIDERS: ATTEND Family Medicine
DX: Z12.31 Encounter for screening mammogram for malignant neoplasm of breast (principal)
CPT/HCPCS: G0202; 77067

== ENCOUNTER 2017-07-17 07:46 | Emergency (ER) | payer BC ==
[~2017-07-17] VITALS: Ht 167.6 cm; Wt 87.1 kg
--- NOTE | 2017-07-17 09:29 | RAD ---
Acute abdominal series including frontal chest radiograph and 2 views of the abdomen of the Chest 07/17/2017 10:46 AM Indication: UPPER ABD PAIN, VOMITING Comparison: Chest radiograph February 11, 2017 Findings: No pneumothorax or pleural effusion is identified. Diffuse interstitial coarsening and multifocal scarring similar to comparison study. Heart size is stable. No new infiltrate is appreciated. No evidence of pneumoperitoneum is identified. The bowel gas pattern is nonobstructive. No acute osseous changes are seen. Impression: No radiographic evidence of acute cardiopulmonary process or intra-abdominal abnormality.
[2017-07-17 09:36] LABS: BASO % 0 % (0-3); EOS % 0 % (0-3); HEMATOCRIT 43.2 % (36.0-47.0); LYMPH # 1.2 x10^3/uL (1.0-4.8); LYMPH % 10 % (24-48); MEAN CORPUSCULAR HEMOGLOBIN 29 pg (25-35); MEAN CORPUSCULAR HGB CONC 32 g/dL (31-37); MEAN CORPUSCULAR VOLUME 90 fL (79-100); MONO % 4 % (0-9); NEUT % 86 % (31-73); PLATELET COUNT 278 x10^3/uL (140-400); RED CELL DISTRIBUTION WIDTH 14.6 % (11.5-14.5); WHITE BLOOD COUNT 11.8 x10^3/uL (4.0-11.0)
[2017-07-17 09:37] LABS: CALCIUM 10.1 mg/dL (8.5-10.1); CREATININE 0.7 mg/dL (0.6-1.0); GFR 104.4; POTASSIUM 3.8 mmol/L (3.5-5.1)
[2017-07-17 09:42] LABS: ALBUMIN 4.1 g/dL (3.4-5.0); ALBUMIN/GLOBULIN RATIO 1.1 (1.0-1.7); TOTAL BILIRUBIN 0.3 mg/dL (0.2-1.0)
[2017-07-17] MEDS ORDERED: ONDA4TAB12 PO (09:46)
--- NOTE | 2017-07-17 09:46 | PHYS DOC ---
Past Medical History Past Medical History: GERD, High Cholesterol, Hypertension, Other Additional Past Medical Histor: gastritis Past Surgical History: , Hysterectomy Additional Past Surgical Histo: Endoscopy Alcohol Use: None Drug Use: None Adult General Chief Complaint Chief Complaint: TREMORS HPI HPI Patient is a 57 year old female brought to the ED by ambulance from home. Patient states that she ate some fast food last night and thinks maybe it didn' t agree with her. She woke up this morning at about 5:30 with a stomachache, she vomited 3 or 4 times. She then began to feel very shaky. No diarrhea. No fever. After she vomited, her stomach felt better. When she arrived, she was having some generalized shakiness but after she waited a little while to be seen , she states she now feels fine. She states she does not really want to be her, her needs to go out of town because he has someone in his family in the hospital. I ask if she would like to wait for just a couple of hours to get some tests and make sure everything looks okay and she is agreeable to that. She does not have chronic problems with tremors or vomiting. She does have acid reflux. Review of Systems Review of Systems Constitutional: Denies fever or chills [] Respiratory: Denies cough or shortness of breath [] Cardiovascular: Denies chest pain GI: As in history of present illness : Denies dysuria or hematuria [] Musculoskeletal: Denies back pain or joint pain [] Allergies Allergies Allergies Coded Allergies Type Severity Reaction Last Updated Verified Penicillins Allergy Severe swelling 08/17/16 Yes Physical Exam Physical Exam Constitutional: Well developed, well nourished, no acute distress, non-toxic appearance. Alert, mentating normally, warm and dry, having no tremulousness or other symptoms when I saw her. HENT: Normocephalic, atraumatic, bilateral external ears normal, nose normal. [ ] Eyes: conjunctiva normal, no discharge. [] Neck: Normal range of motion, no stridor. [] Cardiovascular:Heart rate regular rhythm, no murmur [] Lungs & Thorax: Bilateral breath sounds clear to auscultation [] Abdomen: Bowel sounds normal, soft, no tenderness, no masses, no pulsatile masses. Abdomen exam entirely benign. Skin: Warm, dry, no erythema, no rash. [] Extremities: No tenderness, no cyanosis, no clubbing, ROM intact, no edema. [] Neurologic: Alert and oriented X 3, normal motor function, no focal deficits noted. [] Current Patient Data Vital Signs Vital Signs Date Time Temp Pulse Resp B/P (MAP) Pulse Ox O2 Delivery O2 Flow Rate FiO2 07/17/17 09:55 79 16 141/89 (106) 98 Room Air 07/17/17 08:15 98.1 98.1 Lab Values Laboratory Tests Test 07/17/17 09:11 White Blood Count 11.8 x10^3/uL (4.0-11.0) H Red Blood Count 4.80 x10^6/uL (3.50-5.40) Hemoglobin 14.0 g/dL (12.0-15.5) Hematocrit 43.2 % (36.0-47.0) Mean Corpuscular Volume 90 fL (79-100) Mean Corpuscular Hemoglobin 29 pg (25-35) Mean Corpuscular Hemoglobin Concent 32 g/dL (31-37) Red Cell Distribution Width 14.6 % (11.5-14.5) H Platelet Count 278 x10^3/uL (140-400) Neutrophils (%) (Auto) 86 % (31-73) H Lymphocytes (%) (Auto) 10 % (24-48) L Monocytes (%) (Auto) 4 % (0-9) Eosinophils (%) (Auto) 0 % (0-3) Basophils (%) (Auto) 0 % (0-3) Neutrophils # (Auto) 10.1 x10^3uL (1.8-7.7) H Lymphocytes # (Auto) 1.2 x10^3/uL (1.0-4.8) Monocytes # (Auto) 0.4 x10^3/uL (0.0-1.1) Eosinophils # (Auto) 0.0 x10^3/uL (0.0-0.7) Basophils # (Auto) 0.0 x10^3/uL (0.0-0.2) Segmented Neutrophils % 81 % (35-66) H Band Neutrophils % 5 % (0-9) Lymphocytes % 12 % (24-48) L Monocytes % 2 % (0-10) Platelet Estimate Adequate (ADEQUATE) Sodium Level 148 mmol/L (136-145) H Potassium Level 3.8 mmol/L (3.5-5.1) Chloride Level 108 mmol/L (98-107) H Carbon Dioxide Level 27 mmol/L (21-32) Anion Gap 13 (6-14) Blood Urea Nitrogen 14 mg/dL (7-20) Creatinine 0.7 mg/dL (0.6-1.0) Estimated GFR (Cockcroft-Gault) 104.4 BUN/Creatinine Ratio 20 (6-20) Glucose Level 122 mg/dL (70-99) H Calcium Level 10.1 mg/dL (8.5-10.1) Total Bilirubin 0.3 mg/dL (0.2-1.0) Aspartate Amino Transferase (AST) 19 U/L (15-37) Alanine Aminotransferase (ALT) 33 U/L (14-59) Alkaline Phosphatase 87 U/L (46-116) Total Protein 8.0 g/dL (6.4-8.2) Albumin 4.1 g/dL (3.4-5.0) Albumin/Globulin Ratio 1.1 (1.0-1.7) Lipase 75 U/L (73-393) Laboratory Tests 07/17/17 09:11 Laboratory Tests 07/17/17 09:11 EKG EKG [] Radiology/Procedures Radiology/Procedures Abdominal series read by the radiologist. No acute findings.[] Course & Med Decision Making Course & Med Decision Making Pertinent Labs and Imaging studies reviewed. (See chart for details) 57-year-old female in good general health presents after she woke up with some abdominal pain, vomited 3 or 4 times, her pain is now better, she had some generalized shaking or tremors after the episodes of vomiting, but that appears to be gone as well. She appears to be resting comfortably in no acute distress when I first saw her. Labs, x-ray unremarkable. She continued to be stable and symptom-free in the emergency department. I believe the patient is stable for discharge. See instructions for plan. [] Dragon Disclaimer Dragon Disclaimer This electronic medical record was generated, in whole or in part, using a voice recognition dictation system. Departure Departure Impression: Primary Impression: Abdominal pain Additional Impression: Nausea & vomiting Disposition: 01 HOME, SELF-CARE Condition: STABLE Referrals: WILLIAM PETERSEN (PCP) Patient Instructions: Nausea and Vomiting, [id number] Additional Instructions: Stick to a bland diet today, small amounts, Jell-O, chicken noodle soup, etc. Scripts Ondansetron (ONDANSETRON ODT) 4 Mg Tab.rapdis 1 TAB PO PRN Q6-8HRS for NAUSEA, VOMITING, #10 TAB Prov: MUNA MARTELL MD 07/17/17 Problem Qualifiers MUNA MARTELL MD Jul 17, 2017 09:46
[2017-07-17 09:55] VITALS: BP 141/89
[2017-07-17 12:14] LABS: PLT ESTIMATE ADEQUATE (ADEQUATE)
== END 2017-07-17 09:56 | disposition home or self-care (01) ==
LOC: ER 07:46
DX: R10.9 Unspecified abdominal pain (principal); R11.2 Nausea with vomiting, unspecified; K21.9 Gastro-esophageal reflux disease without esophagitis; E78.00 Pure hypercholesterolemia, unspecified; I10 Essential (primary) hypertension; Z88.0 Allergy status to penicillin; Z90.710 Acquired absence of both cervix and uterus
CPT/HCPCS: 36415; 74022; 80053; 83690; 85007; 85025; 99285

== ENCOUNTER 2017-09-11 08:26 | Emergency (ER) | payer OTHER, BC ==
[2017-09-11 09:14] LABS: BILIRUBIN,URINE NEGATIVE (NEG); CLARITY,URINE CLOUDY; COLOR,URINE YELLOW; GLUCOSE,URINE NEGATIVE (NEG); NITRITE,URINE NEGATIVE (NEG); PROTEIN,URINE 30 mg/dL (NEG-TRACE)
[2017-09-11 09:23] LABS: SQUAMOUS EPITHELIAL CELL,UR FEW /LPF; WBC,URINE TNTC /HPF (0-4)
[2017-09-11 09:24] LABS: BACTERIA,URINE MODERATE /HPF (0-FEW); RBC,URINE >40 /HPF (0-2)
== END 2017-09-11 09:46 | disposition home or self-care (01) ==
LOC: ER 08:26
DX: N39.0 Urinary tract infection, site not specified (principal); K21.9 Gastro-esophageal reflux disease without esophagitis; E78.00 Pure hypercholesterolemia, unspecified; I10 Essential (primary) hypertension; Z90.710 Acquired absence of both cervix and uterus; Z88.0 Allergy status to penicillin; Z88.6 Allergy status to analgesic agent
CPT/HCPCS: 81001; 87086; 87186; 99284

== ENCOUNTER 2017-12-15 07:52 | Emergency (ER) | payer OTHER | END 2017-12-15 09:00 | disposition home or self-care (01) | LOC: ER 09:00 | DX: S39.011A Strain of muscle, fascia and tendon of abdomen, initial encounter (principal); K21.9 Gastro-esophageal reflux disease without esophagitis; E78.00 Pure hypercholesterolemia, unspecified; I10 Essential (primary) hypertension; Z98.890 Other specified postprocedural states; Z90.710 Acquired absence of both cervix and uterus; Z88.0 Allergy status to penicillin; Z88.6 Allergy status to analgesic agent; X50.3XXA Overexertion from repetitive movements, initial encounter; Y93.89 Activity, other specified; Y99.8 Other external cause status; Y92.89 Other specified places as the place of occurrence of the external cause | CPT/HCPCS: 74018; 99284 ==

== ENCOUNTER 2018-05-11 05:17 | Emergency (ER) | payer OTHER ==
[~2018-05-11] VITALS: Ht 167.6 cm; Wt 82.6 kg
[~2018-05-11 05:17] MED LIST changes: +CEPH-264 PO; -LOSA50TA6 PO; +LOSA50TA7 PO; +ONDA4TAB12 PO
[2018-05-11 05:30] VITALS: BP 190/81
[2018-05-11 05:42] LABS: BASO # 0.1 x10^3/uL (0.0-0.2); BASO % 1 % (0-3); EOS # 0.1 x10^3/uL (0.0-0.7); EOS % 2 % (0-3); HEMOGLOBIN 13.4 g/dL (12.0-15.5); LYMPH # 2.3 x10^3/uL (1.0-4.8); LYMPH % 47 % (24-48); MEAN CORPUSCULAR HEMOGLOBIN 30 pg (25-35); MEAN CORPUSCULAR HGB CONC 34 g/dL (31-37); MEAN CORPUSCULAR VOLUME 91 fL (79-100); MONO # 0.4 x10^3/uL (0.0-1.1); MONO % 8 % (0-9); NEUT # 2.1 x10^3uL (1.8-7.7); NEUT % 42 % (31-73); PLATELET COUNT 270 x10^3/uL (140-400); RED BLOOD COUNT 4.41 x10^6/uL (3.50-5.40); RED CELL DISTRIBUTION WIDTH 13.3 % (11.5-14.5)
[2018-05-11 05:48] LABS: CREATININE 0.7 mg/dL (0.6-1.0); POTASSIUM 3.9 mmol/L (3.5-5.1)
--- NOTE | 2018-05-11 05:49 | PHYS DOC ---
Past Medical History Past Medical History: GERD, High Cholesterol, Hypertension, Other Additional Past Medical Histor: gastritis Past Surgical History: , Hysterectomy Additional Past Surgical Histo: Endoscopy Alcohol Use: None Drug Use: None Adult General Chief Complaint Chief Complaint: CHEST PAIN HPI HPI Patient is a 58 year old female who presents with chest pain. Patient has a history of GERD and states 2 months ago in January she had an upper endoscopy and states she's been having substernal chest pain ever since. He states that that study revealed that she had gastritis and reflux. Patient states that she's been put on antacids and although she doesn't really believe the physicians of the diagnosis she states she is compliant with her medication. Patient states she went back in February tell that she was having pain ever since it did the procedure and they gave her another medication which she says also isn't working. Patient states she is due to go back this Saturday to [facility] again for another procedure but is here today because she says she woke up with pain.[She states all of her procedures have occurred at [facility]] Patient states she ate sausage agent biscuit and honeybun with water yesterday and had nothing else to eat. Patient states that she takes her medications in the mornings only but did not take her medication this morning. Denies nausea vomiting and diarrhea and is intermittently tearful and she tells her story of pain and frustration at her specialists for not finding out what is wrong and giving her medication to get rid of it. Patient was admitted July 2016 for chest pain and had a cardiac consultation including an echo. It was thought at that time that her pain was atypical and a GI consult was warranted given that they did not believe that the pain was of cardiac origin. These were the echo results from August 17, 2016: <Conclusion> Left ventricle systolic function is normal. The Ejection Fraction is 55-60%. There is normal LV segmental wall motion. Mild mitral regurgitation. Mild tricuspid regurgitation. The PA pressure was estimated at 31 mmHg. There is no evidence of significant pericardial effusion. Review of Systems Review of Systems Constitutional: Denies fever or chills [] Eyes: Denies change in visual acuity, redness, or eye pain [] HENT: Denies nasal congestion or sore throat [] Respiratory: Denies cough or shortness of breath [] Cardiovascular: No additional information not addressed in HPI [] GI: Denies abdominal pain, nausea, vomiting, bloody stools or diarrhea [] : Denies dysuria or hematuria [] Musculoskeletal: Denies back pain or joint pain [] Integument: Denies rash or skin lesions [] Neurologic: Denies headache, focal weakness or sensory changes [] Endocrine: Denies polyuria or polydipsia [] All other systems were reviewed and found to be within normal limits, except as documented in this note. Current Medications Current Medications Current Medications Medications (Trade) Dose Ordered Sig/Gayatri Start Time Stop Time Status Last Admin Dose Admin Multi-Ingredient Mouthwash/Gargle (Gi Cocktail) 20 ml 1X ONCE 05/11/18 06:15 05/11/18 06:16 Allergies Allergies Allergies Coded Allergies Type Severity Reaction Last Updated Verified Penicillins Allergy Severe swelling 08/17/16 Yes ibuprofen Allergy Intermediate Rash 09/11/17 Yes Physical Exam Physical Exam Constitutional: Well developed, well nourished, no acute distress, non-toxic appearance. [] HENT: Normocephalic, atraumatic, bilateral external ears normal, oropharynx moist, no oral exudates, nose normal. [] Eyes: PERRLA, EOMI, conjunctiva normal, no discharge. [] Neck: Normal range of motion, no tenderness, supple, no stridor. [] Cardiovascular:Heart rate regular rhythm, no murmur [] Lungs & Thorax: Bilateral breath sounds clear to auscultation [] Abdomen: Bowel sounds normal, soft, no tenderness, no masses, no pulsatile masses. [] Skin: Warm, dry, no erythema, no rash. [] Back: No tenderness, no CVA tenderness. [] Extremities: No tenderness, no cyanosis, no clubbing, ROM intact, no edema. [] Neurologic: Alert and oriented X 3, normal motor function, normal sensory function, no focal deficits noted. [] Psychologic: Affect normal, judgement normal, mood normal. [] Current Patient Data Vital Signs Vital Signs Date Time Temp Pulse Resp B/P (MAP) Pulse Ox O2 Delivery O2 Flow Rate FiO2 05/11/18 05:30 98.3 74 18 190/81 (117) 99 Room Air 98.3 Lab Values Laboratory Tests Test 05/11/18 05:27 White Blood Count 5.0 x10^3/uL (4.0-11.0) Red Blood Count 4.41 x10^6/uL (3.50-5.40) Hemoglobin 13.4 g/dL (12.0-15.5) Hematocrit 40.0 % (36.0-47.0) Mean Corpuscular Volume 91 fL (79-100) Mean Corpuscular Hemoglobin 30 pg (25-35) Mean Corpuscular Hemoglobin Concent 34 g/dL (31-37) Red Cell Distribution Width 13.3 % (11.5-14.5) Platelet Count 270 x10^3/uL (140-400) Neutrophils (%) (Auto) 42 % (31-73) Lymphocytes (%) (Auto) 47 % (24-48) Monocytes (%) (Auto) 8 % (0-9) Eosinophils (%) (Auto) 2 % (0-3) Basophils (%) (Auto) 1 % (0-3) Neutrophils # (Auto) 2.1 x10^3uL (1.8-7.7) Lymphocytes # (Auto) 2.3 x10^3/uL (1.0-4.8) Monocytes # (Auto) 0.4 x10^3/uL (0.0-1.1) Eosinophils # (Auto) 0.1 x10^3/uL (0.0-0.7) Basophils # (Auto) 0.1 x10^3/uL (0.0-0.2) Sodium Level 144 mmol/L (136-145) Potassium Level 3.9 mmol/L (3.5-5.1) Chloride Level 107 mmol/L (98-107) Carbon Dioxide Level 32 mmol/L (21-32) Anion Gap 5 (6-14) L Blood Urea Nitrogen 10 mg/dL (7-20) Creatinine 0.7 mg/dL (0.6-1.0) Estimated GFR (Cockcroft-Gault) 104.0 BUN/Creatinine Ratio 14 (6-20) Glucose Level 109 mg/dL (70-99) H Calcium Level 10.0 mg/dL (8.5-10.1) Total Bilirubin 0.4 mg/dL (0.2-1.0) Aspartate Amino Transferase (AST) 17 U/L (15-37) Alanine Aminotransferase (ALT) 34 U/L (14-59) Alkaline Phosphatase 88 U/L (46-116) Troponin I Quantitative < 0.017 ng/mL (0.000-0.055) Total Protein 7.7 g/dL (6.4-8.2) Albumin 3.8 g/dL (3.4-5.0) Albumin/Globulin Ratio 1.0 (1.0-1.7) Laboratory Tests 05/11/18 05:27 Laboratory Tests 05/11/18 05:27 EKG EKG Normal sinus rhythm at a rate of 68[] Radiology/Procedures Radiology/Procedures [facility] [address] [place] [address] IMAGING REPORT Signed PATIENT: NORMA VILLA ACCOUNT: [id number] : 1960 LOCATION: ER AGE: 58 SEX: F EXAM STATUS: PRE ER ORD. PHYSICIAN: REBEKA JUNIOR MD REASON: CP PROCEDURE: PORTABLE CHEST 1V EXAM: AP View of the chest DATE: 05/11/2018 5:38 AM INDICATION: chest pain COMPARISON: No Prior FINDINGS: The heart is mildly enlarged. Mediastinal and hilar contours are normal. Platelike opacities bilateral midlung likely subsegmental atelectasis. No lobar consolidation. No pleural effusion or pneumothorax. IMPRESSION: 1. No radiographic evidence for acute cardiopulmonary process. Electronically signed by: Margarito Grace MD (05/11/2018 5:56 AM) [facility] DICTATED and SIGNED BY: MARGARITO GRACE MD DATE: 05/11/18 0555 [] Course & Med Decision Making Course & Med Decision Making Pertinent Labs and Imaging studies reviewed. (See chart for details) [] Dragon Disclaimer Dragon Disclaimer This electronic medical record was generated, in whole or in part, using a voice recognition dictation system. Departure Departure Impression: Primary Impression: Nonspecific chest pain Additional Impression: Reflux gastritis Disposition: HOME, SELF-CARE Condition: STABLE Referrals: NO PCP (PCP) Additional Instructions: Keep the appointment on Saturday with your specialist for further evaluation and management Problem Qualifiers REBEKA JUNIOR MD May 11, 2018 05:49
[2018-05-11 05:53] LABS: ALBUMIN 3.8 g/dL (3.4-5.0); TOTAL BILIRUBIN 0.4 mg/dL (0.2-1.0); TOTAL PROTEIN 7.7 g/dL (6.4-8.2)
--- NOTE | 2018-05-11 06:00 | RAD ---
EXAM: AP View of the chest DATE: 05/11/2018 5:38 AM INDICATION: chest pain COMPARISON: No Prior FINDINGS: The heart is mildly enlarged. Mediastinal and hilar contours are normal. Platelike opacities bilateral midlung likely subsegmental atelectasis. No lobar consolidation. No pleural effusion or pneumothorax. IMPRESSION: 1. No radiographic evidence for acute cardiopulmonary process. Electronically signed by: Margarito Grace MD (05/11/2018 5:56 AM) [facility]
[2018-05-11] MEDS: LIDO:MAALOX 1:1 20 ML SINGLE DOSE. SWSW ONE (06:08)
--- NOTE | 2018-05-11 06:25 | EKG ---
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
[2018-05-11] MEDS: ONDANSETRON PF 4 MG/2 ML VIAL. IV ONE (06:30)
== END 2018-05-11 06:35 | disposition home or self-care (01) ==
LOC: ER 05:17
DX: R07.89 Other chest pain (principal); K29.60 Other gastritis without bleeding; I08.1 Rheumatic disorders of both mitral and tricuspid valves; E78.00 Pure hypercholesterolemia, unspecified; I10 Essential (primary) hypertension; Z98.890 Other specified postprocedural states; Z90.710 Acquired absence of both cervix and uterus; Z88.0 Allergy status to penicillin; Z88.6 Allergy status to analgesic agent
CPT/HCPCS: 36415; 71045; 80053; 84484; 85025; 93005; 99282; 99285-25

== ENCOUNTER 2018-06-20 08:44 | Emergency (ER) | payer OTHER ==
[~2018-06-20] VITALS: Ht 167.6 cm; Wt 85.7 kg
[~2018-06-20 08:44] MED LIST changes: +HYDR-3164 PO; -HYDR-971 PO
[2018-06-20 09:17] VITALS: BP 139/85
[2018-06-20 09:45] LABS: BILIRUBIN,URINE NEGATIVE (NEG); CLARITY,URINE CLEAR; COLOR,URINE YELLOW; NITRITE,URINE NEGATIVE (NEG); PH,URINE 5.5; PROTEIN,URINE NEGATIVE (NEG-TRACE); UROBILINOGEN,URINE 0.2 mg/dL (0.2 mg/dL)
[2018-06-20 09:54] LABS: SQUAMOUS EPITHELIAL CELL,UR MANY /LPF
[2018-06-20 09:55] LABS: BACTERIA,URINE MODERATE /HPF (0-FEW); RBC,URINE OCC /HPF (0-2)
[2018-06-20] MEDS ORDERED: METH4TAB2 PO (10:01)
--- NOTE | 2018-06-20 10:03 | PHYS DOC ---
Past Medical History Past Medical History: GERD, High Cholesterol, Hypertension, Other Additional Past Medical Histor: gastritis Past Surgical History: , Hysterectomy Additional Past Surgical Histo: Endoscopy Alcohol Use: None Drug Use: None Adult General Chief Complaint Chief Complaint: LOWER BACK PAIN OR INJURY [facility] Patient is a 58 year old [f__sex] who presents with [] Review of Systems Review of Systems Constitutional: Denies fever or chills [] Eyes: Denies change in visual acuity, redness, or eye pain [] HENT: Denies nasal congestion or sore throat [] Respiratory: Denies cough or shortness of breath [] Cardiovascular: No additional information not addressed in HPI [] GI: Denies abdominal pain, nausea, vomiting, bloody stools or diarrhea [] : Denies dysuria or hematuria [] Musculoskeletal: Denies back pain or joint pain [] Integument: Denies rash or skin lesions [] Neurologic: Denies headache, focal weakness or sensory changes [] Endocrine: Denies polyuria or polydipsia [] All other systems were reviewed and found to be within normal limits, except as documented in this note. Allergies Allergies Allergies Coded Allergies Type Severity Reaction Last Updated Verified Penicillins Allergy Severe swelling 08/17/16 Yes ibuprofen Allergy Intermediate Rash 09/11/17 Yes Physical Exam Physical Exam Constitutional: Well developed, well nourished, no acute distress, non-toxic appearance. [] HENT: Normocephalic, atraumatic, bilateral external ears normal, oropharynx moist, no oral exudates, nose normal. [] Eyes: PERRLA, EOMI, conjunctiva normal, no discharge. [] Neck: Normal range of motion, no tenderness, supple, no stridor. [] Cardiovascular:Heart rate regular rhythm, no murmur [] Lungs & Thorax: Bilateral breath sounds clear to auscultation [] Abdomen: Bowel sounds normal, soft, no tenderness, no masses, no pulsatile masses. [] Skin: Warm, dry, no erythema, no rash. [] Back: No tenderness, no CVA tenderness. [] Extremities: No tenderness, no cyanosis, no clubbing, ROM intact, no edema. [] Neurologic: Alert and oriented X 3, normal motor function, normal sensory function, no focal deficits noted. [] Psychologic: Affect normal, judgement normal, mood normal. [] Current Patient Data Vital Signs Vital Signs Date Time Temp Pulse Resp B/P (MAP) Pulse Ox O2 Delivery O2 Flow Rate FiO2 06/20/18 09:17 98.0 73 16 139/85 (103) 95 Room Air 98.0 Lab Values Laboratory Tests Test 06/20/18 09:30 Urine Collection Type Void Urine Color Yellow Urine Clarity Clear Urine pH 5.5 Urine Specific [place] 1.025 Urine Protein Negative mg/dL (NEG-TRACE) Urine Glucose (UA) Negative mg/dL (NEG) Urine Ketones (Stick) Negative mg/dL (NEG) Urine Blood Negative (NEG) Urine Nitrite Negative (NEG) Urine Bilirubin Negative (NEG) Urine Urobilinogen Dipstick 0.2 mg/dL (0.2 mg/dL) Urine Leukocyte Esterase Negative (NEG) Urine RBC Occ /HPF (0-2) Urine WBC 1-4 /HPF (0-4) Urine Squamous Epithelial Cells Many /LPF Urine Bacteria Moderate /HPF (0-FEW) Urine Mucus Marked /LPF EKG EKG [] Radiology/Procedures Radiology/Procedures [] Course & Med Decision Making Course & Med Decision Making Pertinent Labs and Imaging studies reviewed. (See chart for details) [] Dragon Disclaimer Dragon Disclaimer This electronic medical record was generated, in whole or in part, using a voice recognition dictation system. Departure Departure Impression: Primary Impression: Back strain Disposition: 01 HOME, SELF-CARE Condition: STABLE Referrals: NO PCP (PCP) Patient Instructions: Low Back Strain with [facility]hab[facility] Additional Instructions: Take the medication as directed. You may also use ibuprofen or Tylenol for pain. Follow-up with your primary care provider if not improving in 4 days or return to the emergency department if worsening. Scripts Methylprednisolone (MEDROL) 4 Mg Tab.ds.pk 1 PKG PO UD for inflammation, #1 PKG Prov: ANGELA HOGAN DEICER INSPECTOR ELECTRIC 06/20/18 ANGELA HOGAN APRN Jun 20, 2018 10:02
== END 2018-06-20 10:25 | disposition home or self-care (01) ==
LOC: ER 08:44
DX: S39.012A Strain of muscle, fascia and tendon of lower back, initial encounter (principal); K21.9 Gastro-esophageal reflux disease without esophagitis; E78.00 Pure hypercholesterolemia, unspecified; I10 Essential (primary) hypertension; Z90.710 Acquired absence of both cervix and uterus; Z98.890 Other specified postprocedural states; Z88.0 Allergy status to penicillin; Z88.6 Allergy status to analgesic agent; X50.0XXA Overexertion from strenuous movement or load, initial encounter; Y93.89 Activity, other specified; Y92.89 Other specified places as the place of occurrence of the external cause; Y99.0 Civilian activity done for income or pay
CPT/HCPCS: 81001; 87086; 99283

== ENCOUNTER 2018-08-27 09:54 | Observation (INO) | payer OTHER ==
[~2018-08-27] VITALS: Ht 167.6 cm; Wt 80.4 kg
[~2018-08-27 09:54] MED LIST changes: +LOSA-73 PO; -LOSA50TA7 PO; +METH4TAB2 PO
[2018-08-27] MEDS ORDERED: fentaNYL PF VIAL 100 MCG/2 ML VIAL IV ONE (10:15)
[2018-08-27] MEDS ORDERED: ONDANSETRON PF 4 MG/2 ML VIAL. IV ONE (10:15)
--- NOTE | 2018-08-27 10:15 | EKG ---
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
[2018-08-27 10:23] LABS: BASO % 1 % (0-3); EOS # 0.1 x10^3/uL (0.0-0.7); EOS % 1 % (0-3); HEMATOCRIT 41.9 % (36.0-47.0); HEMOGLOBIN 13.7 g/dL (12.0-15.5); LYMPH # 2.4 x10^3/uL (1.0-4.8); LYMPH % 48 % (24-48); MEAN CORPUSCULAR HEMOGLOBIN 29 pg (25-35); MEAN CORPUSCULAR HGB CONC 33 g/dL (31-37); MEAN CORPUSCULAR VOLUME 89 fL (79-100); MONO # 0.3 x10^3/uL (0.0-1.1); MONO % 7 % (0-9); NEUT # 2.3 x10^3uL (1.8-7.7); NEUT % 44 % (31-73); PLATELET COUNT 276 x10^3/uL (140-400); RED CELL DISTRIBUTION WIDTH 14.2 % (11.5-14.5); WHITE BLOOD COUNT 5.1 x10^3/uL (4.0-11.0)
--- NOTE | 2018-08-27 10:33 | RAD ---
EXAM: AP View of the chest DATE: 08/27/2018 10:06 AM INDICATION: LT SIDED CHEST PAIN SINCE SATURDAY COMPARISON: 05/11/2018, 02/11/17 FINDINGS: The heart is not enlarged. Mediastinal and hilar contours are normal. Linear opacities in the lungs bilaterally likely subsegmental atelectasis/scarring, essentially stable. No lobar consolidation. Mild biapical pleural/parenchymal scarring/thickening is seen. No pleural effusion or pneumothorax. IMPRESSION: Linear opacities bilaterally likely subsegmental atelectasis or scarring, essentially stable. No lobar consolidation. No radiographic evidence for acute cardiopulmonary process. Electronically signed by: Margarito Grace MD (08/27/2018 10:28 AM) [facility]
[2018-08-27 10:34] LABS: CALCIUM 10.5 mg/dL (8.5-10.1); CREATININE 0.7 mg/dL (0.6-1.0); POTASSIUM 3.7 mmol/L (3.5-5.1)
[2018-08-27 10:40] LABS: ALBUMIN 3.7 g/dL (3.4-5.0); ALBUMIN/GLOBULIN RATIO 0.9 (1.0-1.7); TOTAL BILIRUBIN 0.7 mg/dL (0.2-1.0); TOTAL PROTEIN 7.9 g/dL (6.4-8.2)
--- NOTE | 2018-08-27 12:12 | PHYS DOC ---
Past Medical History Past Medical History: GERD, High Cholesterol, Hypertension, Other Additional Past Medical Histor: gastritis Past Surgical History: , Hysterectomy Additional Past Surgical Histo: Endoscopy Alcohol Use: None Drug Use: None Adult General Chief Complaint Chief Complaint: CHEST PAIN [facility] HPI Patient is a 58 year old female who presents with left-sided chest pain starting earlier today. Pain is described as throbbing, worse with movement and deep breathing. It is currently rated moderate to severe. It is not associated nausea vomiting sweats. No other acute symptoms or complaints. Of note, patient had an outpatient nuclear stress test at [facility] 2 days ago. She contacted the office this morning and was told that this study had not been read and that she should go to the closest ED. Pain also reports vague left- sided chest pain located directly over shingles rash which she has had for several months. Patient is unsure having difficulty differentiating this whether current pain is different from post herpetic neuralgia. No fever, chills, nausea vomiting or sweats. No leg pain or swelling. No history DVT PE. No other acute symptoms or complaints.[] Review of Systems Review of Systems ROS as per HPI All other systems were reviewed and found to be within normal limits, except as documented in this note. Current Medications Current Medications Current Medications Medications (Trade) Dose Ordered Sig/Gayatri Start Time Stop Time Status Last Admin Dose Admin Fentanyl Citrate (Fentanyl 2ml Vial) 50 mcg 1X ONCE 08/27/18 10:15 08/27/18 10:16 DC 08/27/18 10:34 50 MCG Ondansetron HCl (Zofran) 4 mg 1X ONCE 08/27/18 10:15 08/27/18 10:16 DC 08/27/18 10:32 4 MG Allergies Allergies Allergies Coded Allergies Type Severity Reaction Last Updated Verified Penicillins Allergy Severe swelling 08/17/16 Yes ibuprofen Allergy Intermediate Rash 09/11/17 Yes Physical Exam Physical Exam Constitutional: Well developed, well nourished, no acute distress, non-toxic appearance. [] HENT: Normocephalic, atraumatic, bilateral external ears normal, oropharynx moist, no oral exudates, nose normal. [] Eyes: PERRLA, EOMI, conjunctiva normal, no discharge. [] Neck: Normal range of motion, no tenderness, supple, no stridor. [] Cardiovascular:Heart rate regular rhythm, no murmur [] Lungs & Thorax: Bilateral breath sounds clear to auscultation, shingles-like rales left anterior chest wall. [] Abdomen: Bowel sounds normal, soft, no tenderness. [] Skin: Warm, dry. [] Back: No tenderness. [] Extremities: No tenderness. [] Neurologic: Alert and oriented X 3, normal motor function, normal sensory function, no focal deficits noted. [] Psychologic: Affect normal, judgement normal, mood normal. [] Current Patient Data Vital Signs Vital Signs Date Time Temp Pulse Resp B/P (MAP) Pulse Ox O2 Delivery O2 Flow Rate FiO2 08/27/18 11:33 52 148/70 (96) 94 Room Air 08/27/18 10:00 98.1 16 98.1 Lab Values Laboratory Tests Test 08/27/18 10:10 White Blood Count 5.1 x10^3/uL (4.0-11.0) Red Blood Count 4.70 x10^6/uL (3.50-5.40) Hemoglobin 13.7 g/dL (12.0-15.5) Hematocrit 41.9 % (36.0-47.0) Mean Corpuscular Volume 89 fL (79-100) Mean Corpuscular Hemoglobin 29 pg (25-35) Mean Corpuscular Hemoglobin Concent 33 g/dL (31-37) Red Cell Distribution Width 14.2 % (11.5-14.5) Platelet Count 276 x10^3/uL (140-400) Neutrophils (%) (Auto) 44 % (31-73) Lymphocytes (%) (Auto) 48 % (24-48) Monocytes (%) (Auto) 7 % (0-9) Eosinophils (%) (Auto) 1 % (0-3) Basophils (%) (Auto) 1 % (0-3) Neutrophils # (Auto) 2.3 x10^3uL (1.8-7.7) Lymphocytes # (Auto) 2.4 x10^3/uL (1.0-4.8) Monocytes # (Auto) 0.3 x10^3/uL (0.0-1.1) Eosinophils # (Auto) 0.1 x10^3/uL (0.0-0.7) Basophils # (Auto) 0.0 x10^3/uL (0.0-0.2) Sodium Level 141 mmol/L (136-145) Potassium Level 3.7 mmol/L (3.5-5.1) Chloride Level 104 mmol/L (98-107) Carbon Dioxide Level 29 mmol/L (21-32) Anion Gap 8 (6-14) Blood Urea Nitrogen 10 mg/dL (7-20) Creatinine 0.7 mg/dL (0.6-1.0) Estimated GFR (Cockcroft-Gault) 104.0 BUN/Creatinine Ratio 14 (6-20) Glucose Level 93 mg/dL (70-99) Calcium Level 10.5 mg/dL (8.5-10.1) H Total Bilirubin 0.7 mg/dL (0.2-1.0) Aspartate Amino Transferase (AST) 14 U/L (15-37) L Alanine Aminotransferase (ALT) 28 U/L (14-59) Alkaline Phosphatase 84 U/L (46-116) Creatine Kinase 69 U/L (26-192) Troponin I Quantitative < 0.017 ng/mL (0.000-0.055) Total Protein 7.9 g/dL (6.4-8.2) Albumin 3.7 g/dL (3.4-5.0) Albumin/Globulin Ratio 0.9 (1.0-1.7) L Laboratory Tests 08/27/18 10:10 Laboratory Tests 08/27/18 10:10 EKG EKG [EKG: NAD] Radiology/Procedures Radiology/Procedures XR Chest: No radiographic evidence for acute cardiopulmonary disease per radiology report[] Course & Med Decision Making Course & Med Decision Making Pertinent Labs and Imaging studies reviewed. (See chart for details) [Atypical CP, resolved with tx. Trop and EKG are negative. It is unclear is patient's CP is related to postherpetic neuralgia or, underlying CAD. Will admit to the hospital service for further evaluation and treatment] Dragon Disclaimer Dragon Disclaimer This electronic medical record was generated, in whole or in part, using a voice recognition dictation system. Departure Departure Impression: Primary Impression: Chest pain Disposition: ADMITTED INPATIENT Admitting Physician: Thierry Honeycutt Condition: STABLE Referrals: UNKNOWN PCP NAME (PCP) HEATHER MARTINEZ DO Aug 27, 2018 12:12
[2018-08-27] MEDS ORDERED: ASPIRIN CHEWABLE 81 MG TABLET. PO ONE (12:15)
--- NOTE | 2018-08-27 13:00 | NUR ---
The patient, NORMA VILLA, 58 y/o, F admitted by REKHA CHAVES III, DO, was given written information regarding hospital policies, unit procedures and contact persons. Valuables were checked and left at bedside with patient. Patient advised chest pain started yesterday after having a stress test at [facility] 2 days ago but does not have the results yet. She stated that she does take high blood pressure medication and something for high cholesterol. Advised patient will do labs, and other testing while inpatient.
[2018-08-27 13:16] VITALS: BP 162/86
--- NOTE | 2018-08-27 13:36 | HP ---
ADMIT DATE: 08/27/2018 CHIEF COMPLAINT: Chest pain. HISTORY OF PRESENT ILLNESS: The patient is a pleasant 58-year-old female who presents to the ER with chest pain, it started earlier today. She apparently had a cardiac workup at [facility]. She states it was a stress test done, but she does not have the results of it. She was told to come to the ER by the nurse over there. Rates her symptoms as 7/10. She has associated anxiety, worse with moving. I discussed the case with the ER physician. We are going to admit the patient and consult Cardiology. PAST MEDICAL HISTORY: GERD, hypertension, hyperlipidemia, and possible coronary artery disease, although the stress test she had recently within the past few days is still pending, gastritis. PAST SURGICAL HISTORY: , hysterectomy, endoscopy. ALLERGIES: PENICILLIN AND IBUPROFEN. FAMILY HISTORY: Coronary artery disease. SOCIAL HISTORY: She does not drink, smoke or take drugs. MEDICATIONS: Reviewed. She is on 14 including promethazine, Keflex, azithromycin, Cipro, Bactrim, Lipitor, losartan, Osteen, ondansetron, Zofran, omeprazole, Medrol Dosepak and Pyridium. REVIEW OF SYSTEMS: GENERAL: No history of weight change, weakness or fevers. SKIN: No bruising, hair changes or rashes. EYES: No blurred, double or loss of vision. NOSE AND THROAT: No history of nosebleeds, hoarseness or sore throat. HEART: She complains of chest pain. LUNGS: Denies cough, hemoptysis, wheezing or shortness of breath. GASTROINTESTINAL: Denies changes in appetite, nausea, vomiting, diarrhea or constipation. GENITOURINARY: No history of frequency, urgency, hesitancy or nocturia. NEUROLOGIC: Denies history of numbness, tingling, tremor or weakness. PSYCHIATRIC: No history of panic, anxiety or depression. ENDOCRINE: No history of heat or cold intolerance, polyuria or polydipsia. EXTREMITIES: Denies muscle weakness, joint pain, pain on walking or stiffness. PHYSICAL EXAMINATION: VITAL SIGNS: Temperature 98, pulse 62, respirations 12, blood pressure 160/84, O2 sat 98%. GENERAL: She is alert, cooperative. HEART: Normal S1, S2. LUNGS: Clear to auscultation. ABDOMEN: Soft, positive bowel sounds. EXTREMITIES: Trace edema. SKIN: No rashes. ENDOCRINE: No thyromegaly. LYMPHATICS: No cervical nodes. HEMATOPOIETIC: No bruising. PSYCHIATRIC: She is anxious. NEUROLOGICAL: She is moving all extremities. LABORATORY DATA: Her hematology is normal. Electrolytes are normal. Troponin is 0. ASSESSMENT AND PLAN: Chest pain, rule out coronary artery disease. The patient has been admitted. We will check serial enzymes, serial EKGs, echocardiogram, consult Cardiology, cardiac monitoring, home meds, frequent labs. REKHA CHAVES DO DR: FRANCISCO/beck JOB#: [id number] / [id number]
[2018-08-27] MEDS ORDERED: AMLO10TA6 PO (13:45)
[2018-08-27] MEDS ORDERED: ATOR40TA59 PO (13:45)
[2018-08-27] MEDS ORDERED: AMLO2.5T3 PO (13:49)
[2018-08-27] MEDS ORDERED: ATOR20TA58 PO (13:49)
[2018-08-27 15:00] VITALS: BP 124/60
[2018-08-27] MEDS: LOSARTAN POTASSIUM 50 MG TABLET. PO SCH (15:30)
[2018-08-27] MEDS: amLODIPine BESYLATE 5 MG TABLET PO SCH (15:30)
[2018-08-27] MEDS: PANTOPRAZOLE 40 MG TABLET.DR. PO SCH (15:30)
--- NOTE | 2018-08-27 15:43 | PDOC2 ---
CARDIAC CONSULT DATE OF CONSULT Date of Consult DATE: 08/27/18 TIME: 15:06 REASON FOR CONSULT Reason for Consult: Chest pain REFERRING PHYSICIAN Referring Physician: carlene SOURCE Source: Chart review, Patient HISTORY OF PRESENT ILLNESS HISTORY OF PRESENT ILLNESS This is a pleasant 58 yo female admitted for complains of chest pain. Reports that she was woken up last week with achy left chest discomfort. She thought it was her GERD. She does take prilosec daily. Her diet consits of high sodium and processed food. Denies any exercise regimen. No WISDOM or exertional CP. Denies any fever chills, or frequent coughing but has been having sourness in the back of her throat. Denies any frequent dizziness, falls or any recent injury. Reports that she went to her PCP last Saturday and stress test was ordered for Saturday which she did at [facility] but reported that she was told it was incomplete. Reports that she tried water which worked and also took mustard and helped at first but then recurred her chest achiness but the water and mustard was not working anymore. Did not try any mylanta or tums. PAST MEDICAL HISTORY Past Medical History Cardiovascular: HTN, Hyperlipidemia Pulmonary: No pertinent hx GI: GERD, Gastritis Heme/Onc: No pertinent hx Hepatobiliary: No pertinent hx Psych: No pertinent hx Rheumatologic: No pertinent hx Infectious disease: No pertinent hx ENT: No pertinent hx Renal/: No pertinent hx Endocrine: No pertinent hx Dermatology: No pertinent hx PAST SURGICAL HISTORY Past Surgical History: Hysterectomy FAMILY HISTORY Family History noncontributory to CV SOCIAL HISTORY Smoke: No ALCOHOL: occassional Drugs: Marijuana Lives: with Family CURRENT MEDICATIONS CURRENT MEDICATIONS Current Medications Medications (Trade) Dose Ordered Sig/Gayatri Route PRN Reason Start Time Stop Time Status Last Admin Dose Admin Fentanyl Citrate (Fentanyl 2ml Vial) 50 mcg 1X ONCE IV 08/27/18 10:15 08/27/18 10:16 DC 08/27/18 10:34 Ondansetron HCl (Zofran) 4 mg 1X ONCE IV 08/27/18 10:15 08/27/18 10:16 DC 08/27/18 10:32 Aspirin (Children'S Aspirin) 324 mg 1X ONCE PO 08/27/18 12:15 08/27/18 12:16 DC 08/27/18 12:49 ALLERGIES ALLERGIES: Coded Allergies: Penicillins (Verified Allergy, Severe, swelling, 08/17/16) ibuprofen (Verified Allergy, Intermediate, Rash, 09/11/17) ROS Review of System 14 point ROS evaluated with pertinent positives noted per HPI PHYSICAL EXAM General: Alert, Oriented X3, Cooperative, No acute distress HEENT: Atraumatic, Mucous membr. moist/pink Lungs: Clear to auscultation, Normal air movement Heart: Regular rate (SR), Normal S1, Normal S2, No murmurs Abdomen: Soft, No tenderness Extremities: No cyanosis, No edema Skin: No breakdown, No significant lesion Neuro: Normal speech, Sensation intact Psych/Mental Status: Mental status NL, Mood NL MUSCULOSKELETAL: Osteoarthritic changes both hands VITALS VITALS Vital Signs Date Time Temp Pulse Resp B/P (MAP) Pulse Ox O2 Delivery O2 Flow Rate FiO2 08/27/18 13:16 98.8 62 12 162/86 (111) 98 Room Air 98.8 LABS Lab: Laboratory Tests Test 08/27/18 10:10 White Blood Count 5.1 x10^3/uL (4.0-11.0) Red Blood Count 4.70 x10^6/uL (3.50-5.40) Hemoglobin 13.7 g/dL (12.0-15.5) Hematocrit 41.9 % (36.0-47.0) Mean Corpuscular Volume 89 fL (79-100) Mean Corpuscular Hemoglobin 29 pg (25-35) Mean Corpuscular Hemoglobin Concent 33 g/dL (31-37) Red Cell Distribution Width 14.2 % (11.5-14.5) Platelet Count 276 x10^3/uL (140-400) Neutrophils (%) (Auto) 44 % (31-73) Lymphocytes (%) (Auto) 48 % (24-48) Monocytes (%) (Auto) 7 % (0-9) Eosinophils (%) (Auto) 1 % (0-3) Basophils (%) (Auto) 1 % (0-3) Neutrophils # (Auto) 2.3 x10^3uL (1.8-7.7) Lymphocytes # (Auto) 2.4 x10^3/uL (1.0-4.8) Monocytes # (Auto) 0.3 x10^3/uL (0.0-1.1) Eosinophils # (Auto) 0.1 x10^3/uL (0.0-0.7) Basophils # (Auto) 0.0 x10^3/uL (0.0-0.2) Sodium Level 141 mmol/L (136-145) Potassium Level 3.7 mmol/L (3.5-5.1) Chloride Level 104 mmol/L (98-107) Carbon Dioxide Level 29 mmol/L (21-32) Anion Gap 8 (6-14) Blood Urea Nitrogen 10 mg/dL (7-20) Creatinine 0.7 mg/dL (0.6-1.0) Estimated GFR (Cockcroft-Gault) 104.0 BUN/Creatinine Ratio 14 (6-20) Glucose Level 93 mg/dL (70-99) Calcium Level 10.5 mg/dL (8.5-10.1) Total Bilirubin 0.7 mg/dL (0.2-1.0) Aspartate Amino Transf (AST/SGOT) 14 U/L (15-37) Alanine Aminotransferase (ALT/SGPT) 28 U/L (14-59) Alkaline Phosphatase 84 U/L (46-116) Creatine Kinase 69 U/L (26-192) Troponin I Quantitative < 0.017 ng/mL (0.000-0.055) Total Protein 7.9 g/dL (6.4-8.2) Albumin 3.7 g/dL (3.4-5.0) Albumin/Globulin Ratio 0.9 (1.0-1.7) ECHOCARDIOGRAM ECHOCARDIOGRAM <Conclusion> Left ventricle systolic function is normal. The Ejection Fraction is 55-60%. There is normal LV segmental wall motion. Mild mitral regurgitation. Mild tricuspid regurgitation. The PA pressure was estimated at 31 mmHg. There is no evidence of significant pericardial effusion. DATE: 08/17/16 1642 STRESS TEST STRESS TEST Conclusion 1. Regadenoson cardioisotope stress test did not show any evidence of ischemia or infarct. 2. Normal left ventricular systolic function with ejection fraction calculated at 71%. 3. Low risk for cardiac events. DATE: 02/12/17 1510 ASSESSMENT/PLAN ASSESSMENT/PLAN 1. Atypical chest pain: trop nml. EKG SR with LVH. suspect GI. doubt ACS. 2. HTN: mildly labile 3. HLP 4. GERD exacerbation 5. Asymptomatic SB: No blocks no pauses. lowest in the 40s. 6. Marijuana use Recommendations 1. Continue PPI may need temporary use of H2 ray as well or change PPI type. Defer to PCP 2. TTE. Obtain Saturday MPI from [facility]. 3. Continue with home BP regimen. 4. Marijuana cessation. Dietitian consult. YANET FITZGERALD APRN Aug 27, 2018 15:43
[2018-08-27 15:45] LABS: BILIRUBIN,URINE NEGATIVE (NEG); COLOR,URINE YELLOW; NITRITE,URINE NEGATIVE (NEG); PROTEIN,URINE NEGATIVE (NEG-TRACE); UROBILINOGEN,URINE 0.2 mg/dL (0.2 mg/dL)
[2018-08-27 15:50] LABS: BARBITURATES NEG (NEG); BENZODIAZEPINES NEG (NEG); CANNABINOIDS POS (NEG); CLARITY,URINE CLEAR; COCAINE NEG (NEG); METHADONE NEG (NEG); OPIATES NEG (NEG); PHENCYCLIDINE NEG (NEG)
[2018-08-27 15:51] LABS: AMPHETAMINE/METHAMPHETAMINE NEG (NEG)
[2018-08-27 15:54] LABS: BACTERIA,URINE FEW /HPF (0-FEW); RBC,URINE 0 /HPF (0-2); WBC,URINE OCC /HPF (0-4)
[2018-08-27 15:55] LABS: SQUAMOUS EPITHELIAL CELL,UR MOD /LPF
[2018-08-27 19:20] VITALS: BP 121/70
[2018-08-27] MEDS ORDERED: ATORVASTATIN CALCIUM 20 MG TABLET PO SCH (21:00)
[2018-08-27 23:02] VITALS: BP 139/75
[2018-08-28 03:15] VITALS: BP 132/57
[2018-08-28 04:34] LABS: HEMATOCRIT 39.6 % (36.0-47.0); RED BLOOD COUNT 4.44 x10^6/uL (3.50-5.40); RED CELL DISTRIBUTION WIDTH 14.8 % (11.5-14.5); WHITE BLOOD COUNT 4.5 x10^3/uL (4.0-11.0)
[2018-08-28 04:58] LABS: CALCIUM 9.8 mg/dL (8.5-10.1); CREATININE 0.7 mg/dL (0.6-1.0); POTASSIUM 3.9 mmol/L (3.5-5.1)
[2018-08-28 05:20] LABS: CHOLESTEROL/HDL RATIO 3.9
[2018-08-28 07:00] VITALS: BP 132/63
[2018-08-28] MEDS: PANTOPRAZOLE 40 MG TABLET.DR. PO SCH (08:10)
[2018-08-28] MEDS: LOSARTAN POTASSIUM 50 MG TABLET. PO SCH (08:54)
[2018-08-28] MEDS: amLODIPine BESYLATE 5 MG TABLET PO SCH (08:59)
[2018-08-28] MEDS ORDERED: POLYETHYLENE GLYCOL 3350 17 GM PACKET. PO ONE (09:30)
[2018-08-28] MEDS ORDERED: DOCUSATE SODIUM 100 MG CAPSULE. PO SCH (09:30)
--- NOTE | 2018-08-28 09:30 | CARD ---
MR#: [id number] Date of Study: 08/28/2018 Ordering Physician: YANET FITZGERALD, Referring Physician: REKHA CHAVES Tech: Yeimy Rico RDCS APPROVED REPORT EXAM: Two-dimensional and M-mode echocardiogram with Doppler and color Doppler. Other Information Quality : GoodHR: 58bpm Rhythm : NSR INDICATION Chest Pain 2D DIMENSIONS RVDd3.5 (2.9-3.5cm)Left Atrium(2D)2.2 (1.6-4.0cm) IVSd1.1 (0.7-1.1cm)Aortic Root(2D)3.4 (2.0-3.7cm) LVDd4.6 (3.9-5.9cm)LVOT Diameter1.9 (1.8-2.4cm) PWd0.9 (0.7-1.1cm)LVDs3.1 (2.5-4.0cm) FS (%) 32.9 %SV59.5 ml LVEF(%)61.4 (>50%) Aortic Valve AoV Peak Leland.143.6cm/sAoV VTI26.1cm AO Peak GR.8.2mmHgLVOT Peak Leland.95.4cm/s AO Mean GR.5mmHgAVA (VMAX)1.92cm2 MARILYNN (VTI)1.90cm2 Mitral Valve MV E Qfgmflvp33.0cm/sMV DECEL CGCC386gv MV A Qbhkeqti627.5cm/sE/A Ratio0.8 MV A [id number] Pulmonary Valve PV Peak Qsqvppwk33.8cm/s Tricuspid Valve TR P. [id number]/sRAP [id number] TR Peak Gr.97rkVoQAZN16tySm Pulmonary Vein S1 Jmmcbsex22.6cm/sD2 Xykypaoh95.7cm/s PVa [id number] LEFT VENTRICLE The left ventricle is normal size. Proximal septal thickening is noted. The left ventricular systolic function is normal. The Ejection Fraction is 55-60%. There is normal LV segmental wall motion. Trans mitral Doppler flow pattern is Grade I-abnormal relaxation pattern. RIGHT VENTRICLE The right ventricle is normal size. There is normal right ventricular wall thickness. The right ventr icular systolic function is normal. ATRIA The left atrium size is normal. The right atrium size is normal. The interatrial septum is intact wit h no evidence for an atrial septal defect or patent foramen ovale as noted on 2-D or Doppler imaging. AORTIC VALVE The aortic valve is normal in structure and function. The aortic valve is trileaflet. Doppler and Col or Flow revealed no significant aortic regurgitation. There is no significant aortic valvular stenosi s. MITRAL VALVE The mitral valve is normal in structure and function. There is no evidence of mitral valve prolapse. There is no mitral valve stenosis. Doppler and Color-flow revealed trace mitral regurgitation. TRICUSPID VALVE The tricuspid valve is normal in structure and function. Doppler and Color Flow revealed trace tricus pid regurgitation. The PA pressure was estimated at 28 mmHg. There is no tricuspid valve prolapse or vegetation. There is no tricuspid valve stenosis. PULMONIC VALVE The pulmonary valve is normal in structure and function. Doppler and Color Flow revealed no pulmonic valvular regurgitation. There is no pulmonic valvular stenosis. GREAT VESSELS The aortic root is normal in size. The ascending aorta is normal in size. The IVC is normal in size a nd collapses >50% with inspiration. PERICARDIAL EFFUSION There is no evidence of significant pericardial effusion. Critical Notification Critical Value: No <Conclusion> The left ventricular systolic function is normal. The Ejection Fraction is 55-60%. There is normal LV segmental wall motion. Transmitral Doppler flow pattern is Grade I-abnormal relaxation pattern. Trace mitral regurgitation. Trace tricuspid regurgitation. The PA pressure was estimated at 28 mmHg. There is no evidence of significant pericardial effusion. Signed by : Gino Lorenz, Electronically Approved : 08/28/2018 09:28:20
[2018-08-28 11:00] VITALS: BP 129/67
--- NOTE | 2018-08-28 13:27 | PDOC3 ---
Discharge Summary Visit Information Date of Admission: Aug 27, 2018 Date of Discharge: Aug 28, 2018 Admitting Diagnosis: chest pain Final Diagnosis Chest pain, angina htn, no chf, likely GERD some weakness Problems Medical Problems: (1) Chest pain Status: Acute Brief Hospital Course Allergies Allergies Coded Allergies Type Severity Reaction Last Updated Verified Penicillins Allergy Severe swelling 08/17/16 Yes ibuprofen Allergy Intermediate Rash 09/11/17 Yes Vital Signs Vital Signs Date Time Temp Pulse Resp B/P (MAP) Pulse Ox O2 Delivery O2 Flow Rate FiO2 08/28/18 11:00 98.4 68 18 129/67 (87) 98 Room Air 98.4 Lab Results Laboratory Tests Test 08/27/18 10:10 08/27/18 15:30 08/27/18 16:05 08/27/18 19:55 White Blood Count 5.1 x10^3/uL (4.0-11.0) Red Blood Count 4.70 x10^6/uL (3.50-5.40) Hemoglobin 13.7 g/dL (12.0-15.5) Hematocrit 41.9 % (36.0-47.0) Mean Corpuscular Volume 89 fL (79-100) Mean Corpuscular Hemoglobin 29 pg (25-35) Mean Corpuscular Hemoglobin Concent 33 g/dL (31-37) Red Cell Distribution Width 14.2 % (11.5-14.5) Platelet Count 276 x10^3/uL (140-400) Neutrophils (%) (Auto) 44 % (31-73) Lymphocytes (%) (Auto) 48 % (24-48) Monocytes (%) (Auto) 7 % (0-9) Eosinophils (%) (Auto) 1 % (0-3) Basophils (%) (Auto) 1 % (0-3) Neutrophils # (Auto) 2.3 x10^3uL (1.8-7.7) Lymphocytes # (Auto) 2.4 x10^3/uL (1.0-4.8) Monocytes # (Auto) 0.3 x10^3/uL (0.0-1.1) Eosinophils # (Auto) 0.1 x10^3/uL (0.0-0.7) Basophils # (Auto) 0.0 x10^3/uL (0.0-0.2) Sodium Level 141 mmol/L (136-145) Potassium Level 3.7 mmol/L (3.5-5.1) Chloride Level 104 mmol/L (98-107) Carbon Dioxide Level 29 mmol/L (21-32) Anion Gap 8 (6-14) Blood Urea Nitrogen 10 mg/dL (7-20) Creatinine 0.7 mg/dL (0.6-1.0) Estimated GFR (Cockcroft-Gault) 104.0 BUN/Creatinine Ratio 14 (6-20) Glucose Level 93 mg/dL (70-99) Calcium Level 10.5 mg/dL (8.5-10.1) Total Bilirubin 0.7 mg/dL (0.2-1.0) Aspartate Amino Transf (AST/SGOT) 14 U/L (15-37) Alanine Aminotransferase (ALT/SGPT) 28 U/L (14-59) Alkaline Phosphatase 84 U/L (46-116) Creatine Kinase 69 U/L (26-192) Troponin I Quantitative < 0.017 ng/mL (0.000-0.055) < 0.017 ng/mL (0.000-0.055) < 0.017 ng/mL (0.000-0.055) Total Protein 7.9 g/dL (6.4-8.2) Albumin 3.7 g/dL (3.4-5.0) Albumin/Globulin Ratio 0.9 (1.0-1.7) Urine Collection Type Unknown Urine Color Yellow Urine Clarity Clear Urine pH 6.0 Urine Specific [place] 1.025 Urine Protein Negative mg/dL (NEG-TRACE) Urine Glucose (UA) Negative mg/dL (NEG) Urine Ketones (Stick) Negative mg/dL (NEG) Urine Blood Negative (NEG) Urine Nitrite Negative (NEG) Urine Bilirubin Negative (NEG) Urine Urobilinogen Dipstick 0.2 mg/dL (0.2 mg/dL) Urine Leukocyte Esterase Negative (NEG) Urine RBC 0 /HPF (0-2) Urine WBC Occ /HPF (0-4) Urine Squamous Epithelial Cells Mod /LPF Urine Bacteria Few /HPF (0-FEW) Urine Mucus Marked /LPF Urine Opiates Screen Neg (NEG) Urine Methadone Screen Neg (NEG) Urine Barbiturates Neg (NEG) Urine Phencyclidine Screen Neg (NEG) Urine Amphetamine/Methamphetamine Neg (NEG) Urine Benzodiazepines Screen Neg (NEG) Urine Cocaine Screen Neg (NEG) Urine Cannabinoids Screen Pos (NEG) Urine Ethyl Alcohol Neg (NEG) Test 08/28/18 04:00 White Blood Count 4.5 x10^3/uL (4.0-11.0) Red Blood Count 4.44 x10^6/uL (3.50-5.40) Hemoglobin 13.0 g/dL (12.0-15.5) Hematocrit 39.6 % (36.0-47.0) Mean Corpuscular Volume 89 fL (79-100) Mean Corpuscular Hemoglobin 29 pg (25-35) Mean Corpuscular Hemoglobin Concent 33 g/dL (31-37) Red Cell Distribution Width 14.8 % (11.5-14.5) Platelet Count 243 x10^3/uL (140-400) Sodium Level 140 mmol/L (136-145) Potassium Level 3.9 mmol/L (3.5-5.1) Chloride Level 105 mmol/L (98-107) Carbon Dioxide Level 27 mmol/L (21-32) Anion Gap 8 (6-14) Blood Urea Nitrogen 14 mg/dL (7-20) Creatinine 0.7 mg/dL (0.6-1.0) Estimated GFR (Cockcroft-Gault) 104.0 Glucose Level 123 mg/dL (70-99) Calcium Level 9.8 mg/dL (8.5-10.1) Triglycerides Level 167 mg/dL (0-150) Cholesterol Level 152 mg/dL (0-200) LDL Cholesterol, Calculated 80 mg/dL (0-100) VLDL Cholesterol, Calculated 33 mg/dL (0-40) Non-HDL Cholesterol Calculated 113 mg/dL (0-129) HDL Cholesterol 39 mg/dL (40-60) Cholesterol/HDL Ratio 3.9 Laboratory Tests Test 08/27/18 15:30 08/27/18 16:05 08/27/18 19:55 08/28/18 04:00 Urine Collection Type Unknown Urine Color Yellow Urine Clarity Clear Urine pH 6.0 Urine Specific [place] 1.025 Urine Protein Negative mg/dL (NEG-TRACE) Urine Glucose (UA) Negative mg/dL (NEG) Urine Ketones (Stick) Negative mg/dL (NEG) Urine Blood Negative (NEG) Urine Nitrite Negative (NEG) Urine Bilirubin Negative (NEG) Urine Urobilinogen Dipstick 0.2 mg/dL (0.2 mg/dL) Urine Leukocyte Esterase Negative (NEG) Urine RBC 0 /HPF (0-2) Urine WBC Occ /HPF (0-4) Urine Squamous Epithelial Cells Mod /LPF Urine Bacteria Few /HPF (0-FEW) Urine Mucus Marked /LPF Urine Opiates Screen Neg (NEG) Urine Methadone Screen Neg (NEG) Urine Barbiturates Neg (NEG) Urine Phencyclidine Screen Neg (NEG) Urine Amphetamine/Methamphetamine Neg (NEG) Urine Benzodiazepines Screen Neg (NEG) Urine Cocaine Screen Neg (NEG) Urine Cannabinoids Screen Pos (NEG) Urine Ethyl Alcohol Neg (NEG) Troponin I Quantitative < 0.017 ng/mL (0.000-0.055) < 0.017 ng/mL (0.000-0.055) White Blood Count 4.5 x10^3/uL (4.0-11.0) Red Blood Count 4.44 x10^6/uL (3.50-5.40) Hemoglobin 13.0 g/dL (12.0-15.5) Hematocrit 39.6 % (36.0-47.0) Mean Corpuscular Volume 89 fL (79-100) Mean Corpuscular Hemoglobin 29 pg (25-35) Mean Corpuscular Hemoglobin Concent 33 g/dL (31-37) Red Cell Distribution Width 14.8 % (11.5-14.5) Platelet Count 243 x10^3/uL (140-400) Sodium Level 140 mmol/L (136-145) Potassium Level 3.9 mmol/L (3.5-5.1) Chloride Level 105 mmol/L (98-107) Carbon Dioxide Level 27 mmol/L (21-32) Anion Gap 8 (6-14) Blood Urea Nitrogen 14 mg/dL (7-20) Creatinine 0.7 mg/dL (0.6-1.0) Estimated GFR (Cockcroft-Gault) 104.0 Glucose Level 123 mg/dL (70-99) Calcium Level 9.8 mg/dL (8.5-10.1) Triglycerides Level 167 mg/dL (0-150) Cholesterol Level 152 mg/dL (0-200) LDL Cholesterol, Calculated 80 mg/dL (0-100) VLDL Cholesterol, Calculated 33 mg/dL (0-40) Non-HDL Cholesterol Calculated 113 mg/dL (0-129) HDL Cholesterol 39 mg/dL (40-60) Cholesterol/HDL Ratio 3.9 Brief Hospital Course Ms. Bonilla is a 58 old female, admit with acute chest pain, ACS ruled out by enzymes, CV consultes LDL 80, risk low pain better at DC ECHO The left ventricular systolic function is normal. The Ejection Fraction is 55-60%. There is normal LV segmental wall motion. Transmitral Doppler flow pattern is Grade I-abnormal relaxation pattern. Trace mitral regurgitation. Trace tricuspid regurgitation. The PA pressure was estimated at 28 mmHg. There is no evidence of significant pericardial effusion. Discharge Information Condition at Discharge: Improved Follow Up: Weeks Disposition/Orders: D/C to Home Scheduled Amlodipine Besylate (Amlodipine Besylate) 2.5 Mg Tablet, 2.5 MG PO DAILY for hypertension, (Reported) Entered as Reported by: Greg Quezada on 08/27/18 1349 Last Taken: 2.5 on Unknown Date & Time Last Action: Converted on 08/27/181440 by Greg Quezada Atorvastatin Calcium (Atorvastatin Calcium) 20 Mg Tablet, 20 MG PO HS for hyperlipidemia, (Reported) Entered as Reported by: Greg Quezada on 08/27/18 1349 Last Taken: 20 on Unknown Date & Time Last Action: Continued on 08/27/181440 by Greg Quezada Losartan Potassium (Losartan Potassium) 50 Mg Tablet, 50 MG PO DAILY, (Reported) Entered as Reported by: CE BARRAZA on 08/17/16 1134 Last Action: Continued on 08/27/181440 by Greg Quezada Omeprazole (Omeprazole) 40 Mg Capsule.dr, 40 MG PO DAILY, (Reported) Entered as Reported by: GARY EL on 10/05/13 1409 Last Action: Converted on 08/27/181440 by Greg Quezada Ondansetron (Ondansetron Odt) 4 Mg Tab.rapdis, 1 TAB PO PRN Q6-8HRS for NAUSEA, VOMITING, #10 Prescribed by: MUNA MARTELL MD on 07/17/17 0946 Scheduled PRN Hydrocodone/Apap 5-325 ([place] 5-325 Tablet) 1 Each Tablet, 1 TAB PO PRN Q6HRS PRN for PAIN, #12 Ref 0 Prescribed by: JORDAN CISNEROS on 09/22/16 1101 Ondansetron Hcl (Zofran) 4 Mg Tablet, 1-2 TAB PO Q6HRS PRN for NAUSEA/VOMITING, #15 Ref 0 Prescribed by: SABAS GREEN MD on 04/04/16 1825 Discontinued Medications Atorvastatin Calcium (Lipitor) 20 Mg Tablet, 1 TAB PO DAILY, #90 Ref 1 (Reported ) Discontinued Reason: Prescription changed Entered as Reported by: CE BARRAZA on 08/17/16 1134 Patient Instructions Patient Instructions < 30 min face to face will f.u with her GI, may need EGD REGI LINDA MD Aug 28, 2018 13:27
--- NOTE | 2018-08-28 14:59 | PDOC ---
CARDIO Progress Notes Date and Time Date of Service 08/28/18 Time of Evaluation 1015 Subjective Subjective: No Chest Pain, No shortness of breath Vitals Vitals Vital Signs Date Time Temp Pulse Resp B/P (MAP) Pulse Ox O2 Delivery O2 Flow Rate FiO2 08/28/18 11:00 98.4 68 18 129/67 (87) 98 Room Air 98.4 Weight Weight [ ] Input and Output Intake and Output Intake and Output 08/28/18 07:01 Intake Total 740 ml Output Total 250 ml Balance 490 ml Intake Oral 740 ml Output Urine Total 250 ml Laboratory Labs Laboratory Tests Test 08/27/18 15:30 08/27/18 16:05 08/27/18 19:55 08/28/18 04:00 Urine Collection Type Unknown Urine Color Yellow Urine Clarity Clear Urine pH 6.0 Urine Specific [place] 1.025 Urine Protein Negative mg/dL (NEG-TRACE) Urine Glucose (UA) Negative mg/dL (NEG) Urine Ketones (Stick) Negative mg/dL (NEG) Urine Blood Negative (NEG) Urine Nitrite Negative (NEG) Urine Bilirubin Negative (NEG) Urine Urobilinogen Dipstick 0.2 mg/dL (0.2 mg/dL) Urine Leukocyte Esterase Negative (NEG) Urine RBC 0 /HPF (0-2) Urine WBC Occ /HPF (0-4) Urine Squamous Epithelial Cells Mod /LPF Urine Bacteria Few /HPF (0-FEW) Urine Mucus Marked /LPF Urine Opiates Screen Neg (NEG) Urine Methadone Screen Neg (NEG) Urine Barbiturates Neg (NEG) Urine Phencyclidine Screen Neg (NEG) Urine Amphetamine/Methamphetamine Neg (NEG) Urine Benzodiazepines Screen Neg (NEG) Urine Cocaine Screen Neg (NEG) Urine Cannabinoids Screen Pos (NEG) Urine Ethyl Alcohol Neg (NEG) Troponin I Quantitative < 0.017 ng/mL (0.000-0.055) < 0.017 ng/mL (0.000-0.055) White Blood Count 4.5 x10^3/uL (4.0-11.0) Red Blood Count 4.44 x10^6/uL (3.50-5.40) Hemoglobin 13.0 g/dL (12.0-15.5) Hematocrit 39.6 % (36.0-47.0) Mean Corpuscular Volume 89 fL (79-100) Mean Corpuscular Hemoglobin 29 pg (25-35) Mean Corpuscular Hemoglobin Concent 33 g/dL (31-37) Red Cell Distribution Width 14.8 % (11.5-14.5) Platelet Count 243 x10^3/uL (140-400) Sodium Level 140 mmol/L (136-145) Potassium Level 3.9 mmol/L (3.5-5.1) Chloride Level 105 mmol/L (98-107) Carbon Dioxide Level 27 mmol/L (21-32) Anion Gap 8 (6-14) Blood Urea Nitrogen 14 mg/dL (7-20) Creatinine 0.7 mg/dL (0.6-1.0) Estimated GFR (Cockcroft-Gault) 104.0 Glucose Level 123 mg/dL (70-99) Calcium Level 9.8 mg/dL (8.5-10.1) Triglycerides Level 167 mg/dL (0-150) Cholesterol Level 152 mg/dL (0-200) LDL Cholesterol, Calculated 80 mg/dL (0-100) VLDL Cholesterol, Calculated 33 mg/dL (0-40) Non-HDL Cholesterol Calculated 113 mg/dL (0-129) HDL Cholesterol 39 mg/dL (40-60) Cholesterol/HDL Ratio 3.9 Physical Exam HEENT: Neck Supple W Full Motion Chest: Symmetric LUNGS: Clear to Auscultation Heart: S1S2, RRR Abdomen: Soft N/T Extremities: No Edema Neurology: alert, oriented, follow commands Assessment Assessment 1. Atypical chest pain: trop nml. EKG SR with LVH. suspect GI. doubt ACS. Echo revealed normal LV systolic function 2. HTN: better controlled 3. HLP 4. GERD exacerbation 5. Asymptomatic SB: No blocks no pauses. lowest in the 40s. 6. Marijuana use Obtain exercise treadmill report from [facility] (08/25/18) Very poor endurance, achieving only 3 minutes and 4.6 METs of activity At this level of exercise, no chest pain or significant arrhythmias. However, the ST segments do change with exercise, with 0.5 mm of slightly downsloping ST segment depression in the inferior and lateral leads. Pharmacologic MPI recommended Recommendations Outpatient MPI arranged for 09/08/18. Follow up with Dr. Orlando in 4 weeks as scheduled. . SHANELL FRANKS APRN Aug 28, 2018 14:59
[2018-08-29] MEDS ORDERED: POLYETHYLENE GLYCOL 3350 17 GM PACKET. PO SCH (09:00)
== END 2018-08-28 16:01 | disposition home or self-care (01) ==
LOC: ER 09:54 → 2 SOUTH 12:00
PROVIDERS: ADMIT Internal Medicine; ATTEND Internal Medicine
DX: R07.89 Other chest pain (principal); I20.9 Angina pectoris, unspecified; I10 Essential (primary) hypertension; E78.5 Hyperlipidemia, unspecified; K21.9 Gastro-esophageal reflux disease without esophagitis; F41.9 Anxiety disorder, unspecified; E78.00 Pure hypercholesterolemia, unspecified; Z82.49 Family history of ischemic heart disease and other diseases of the circulatory system; F12.90 Cannabis use, unspecified, uncomplicated; Z90.710 Acquired absence of both cervix and uterus
CPT/HCPCS: 36415; 71045; 80048; 80053; 80061; 80307; 81001; 82550; 84484; 85025; 85027; 93005; 93306; 96374; 96375; 99284; G0378; J2405; J3010; G0379

== ENCOUNTER 2018-09-28 12:49 | Emergency (ER) | payer OTHER ==
[~2018-09-28] VITALS: Ht 167.6 cm; Wt 82.6 kg
[~2018-09-28 12:49] MED LIST changes: +AMLO10TA8 PO; +AMLO2.5T5 PO; +ATOR20TA58 PO; +ATOR40TA59 PO
[2018-09-28 13:15] VITALS: BP 131/71
[2018-09-28] MEDS ORDERED: IV NORMAL SALINE 1000ML BAG 1,000 ML IV SCH (13:26)
[2018-09-28] MEDS ORDERED: PROCHLORPERAZINE 10 MG/2 ML VIAL. IV ONE (13:30)
[2018-09-28] MEDS ORDERED: HYOSCYAMINE 0.125 MG TAB.RAPDIS PO ONE (13:30)
[2018-09-28] MEDS ORDERED: LIDO:MAALOX 1:1 20 ML SINGLE DOSE. SWSW ONE (13:30)
[2018-09-28] MEDS ORDERED: PANTOPRAZOLE IV PUSH 40 MG VIAL. IVP ONE (13:30)
[2018-09-28 13:37] LABS: BILIRUBIN,URINE SMALL (NEG); CLARITY,URINE CLEAR; COLOR,URINE AMBER; NITRITE,URINE NEGATIVE (NEG); PROTEIN,URINE NEGATIVE (NEG-TRACE); UROBILINOGEN,URINE 0.2 mg/dL (0.2 mg/dL)
[2018-09-28 13:43] LABS: BASO % 1 % (0-3); EOS % 1 % (0-3); HEMATOCRIT 40.7 % (36.0-47.0); HEMOGLOBIN 13.3 g/dL (12.0-15.5); LYMPH # 2.9 x10^3/uL (1.0-4.8); LYMPH % 57 % (24-48); MEAN CORPUSCULAR HEMOGLOBIN 29 pg (25-35); MEAN CORPUSCULAR HGB CONC 33 g/dL (31-37); MEAN CORPUSCULAR VOLUME 89 fL (79-100); MONO # 0.3 x10^3/uL (0.0-1.1); MONO % 7 % (0-9); NEUT # 1.7 x10^3uL (1.8-7.7); NEUT % 34 % (31-73); PLATELET COUNT 273 x10^3/uL (140-400); RED BLOOD COUNT 4.55 x10^6/uL (3.50-5.40); RED CELL DISTRIBUTION WIDTH 14.5 % (11.5-14.5); WHITE BLOOD COUNT 5.1 x10^3/uL (4.0-11.0)
[2018-09-28 13:49] LABS: RBC,URINE OCC /HPF (0-2)
[2018-09-28 13:50] LABS: BACTERIA,URINE MODERATE /HPF (0-FEW); SQUAMOUS EPITHELIAL CELL,UR MOD /LPF
--- NOTE | 2018-09-28 13:50 | PHYS DOC ---
Past Medical History Past Medical History: GERD, High Cholesterol, Hypertension, Other Additional Past Medical Histor: gastritis Past Surgical History: , Hysterectomy Additional Past Surgical Histo: Endoscopy Alcohol Use: None Drug Use: None Adult General Chief Complaint Chief Complaint: ABDOMINAL PAIN HPI HPI Patient is a 58 year old female who presents with chest and upper abdominal pain for the past 6-7 days. No worsening with exertion. Little worse with laying supine. No improvement with her omeprazole. Received a short time of improvement when taking Excedrin. Decreased appetite over this timeframe. No vomiting. Patient is unable to describe the pain other than "pain." Patient had recent stress test after which these symptoms started. Patient is uncertain as to the results of this stress test. It was performed at an outlying facility.[] Review of Systems Review of Systems Constitutional: Denies fever or chills [] Eyes: Denies change in visual acuity, redness, or eye pain [] HENT: Denies nasal congestion or sore throat [] Respiratory: Denies cough or shortness of breath [] Cardiovascular: No additional information not addressed in HPI [] GI: Denies abdominal pain, nausea, vomiting, bloody stools or diarrhea [] : Denies dysuria or hematuria [] Musculoskeletal: Denies back pain or joint pain [] Integument: Denies rash or skin lesions [] Neurologic: Denies headache, focal weakness or sensory changes [] Endocrine: Denies polyuria or polydipsia [] All other systems were reviewed and found to be within normal limits, except as documented in this note. Current Medications Current Medications Current Medications Medications (Trade) Dose Ordered Sig/Gayatri Start Time Stop Time Status Last Admin Dose Admin Hyoscyamine (Anaspaz) 0.125 mg ONCE ONCE 09/28/18 13:30 09/28/18 13:31 DC 09/28/18 14:01 0.125 MG Info (CONTRAST GIVEN -- Rx MONITORING) 1 each PRN DAILY PRN 09/28/18 14:15 09/30/18 14:14 Iohexol (Omnipaque 300 Mg/ml) 75 ml 1X ONCE 09/28/18 14:15 09/28/18 14:16 DC 09/28/18 14:37 75 ML Multi-Ingredient Mouthwash/Gargle (Gi Cocktail) 20 ml 1X ONCE 09/28/18 13:30 09/28/18 13:31 DC 09/28/18 14:04 20 ML Pantoprazole Sodium (PROTONIX VIAL for IV PUSH) 40 mg 1X ONCE 09/28/18 13:30 09/28/18 13:31 DC 09/28/18 14:02 40 MG Prochlorperazine Edisylate (Compazine) 5 mg 1X ONCE 09/28/18 13:30 09/28/18 13:31 DC 09/28/18 14:00 5 MG Sodium Chloride 1,000 ml @ 1,000 mls/hr Q1H 09/28/18 13:26 09/28/18 14:25 DC 09/28/18 13:26 1,000 MLS/HR Allergies Allergies Allergies Coded Allergies Type Severity Reaction Last Updated Verified Penicillins Allergy Severe swelling 08/17/16 Yes ibuprofen Allergy Intermediate Rash 09/11/17 Yes Physical Exam Physical Exam Constitutional: Well developed, well nourished, no acute distress, non-toxic appearance. [] HENT: Normocephalic, atraumatic, bilateral external ears normal, oropharynx moist, no oral exudates, nose normal. [] Eyes: PERRLA, EOMI, conjunctiva normal, no discharge. [] Neck: Normal range of motion, no tenderness, supple, no stridor. [] Cardiovascular:Heart rate regular rhythm, no murmur [] Lungs & Thorax: Bilateral breath sounds clear to auscultation [] Abdomen: Bowel sounds normal, soft, no tenderness, no masses, no pulsatile masses. [] Skin: Warm, dry, no erythema, no rash. [] Back: No tenderness, no CVA tenderness. [] Extremities: No tenderness, no cyanosis, no clubbing, ROM intact, no edema. [] Neurologic: Alert and oriented X 3, normal motor function, normal sensory function, no focal deficits noted. [] Psychologic: Affect normal, judgement normal, mood normal. [] Current Patient Data Vital Signs Vital Signs Date Time Temp Pulse Resp B/P (MAP) Pulse Ox O2 Delivery O2 Flow Rate FiO2 09/28/18 13:15 98.1 57 18 131/71 (91) 97 Room Air 98.1 Lab Values Laboratory Tests Test 09/28/18 13:05 09/28/18 13:33 Urine Collection Type Unknown Urine Color [place] Urine Clarity Clear Urine pH 5.0 Urine Specific [place] >=1.030 Urine Protein Negative mg/dL (NEG-TRACE) Urine Glucose (UA) Negative mg/dL (NEG) Urine Ketones (Stick) Trace mg/dL (NEG) Urine Blood Negative (NEG) Urine Nitrite Negative (NEG) Urine Bilirubin Small (NEG) Urine Urobilinogen Dipstick 0.2 mg/dL (0.2 mg/dL) Urine Leukocyte Esterase Negative (NEG) Urine RBC Occ /HPF (0-2) Urine WBC 1-4 /HPF (0-4) Urine Squamous Epithelial Cells Mod /LPF Urine Bacteria Moderate /HPF (0-FEW) Urine Mucus Marked /LPF White Blood Count 5.1 x10^3/uL (4.0-11.0) Red Blood Count 4.55 x10^6/uL (3.50-5.40) Hemoglobin 13.3 g/dL (12.0-15.5) Hematocrit 40.7 % (36.0-47.0) Mean Corpuscular Volume 89 fL (79-100) Mean Corpuscular Hemoglobin 29 pg (25-35) Mean Corpuscular Hemoglobin Concent 33 g/dL (31-37) Red Cell Distribution Width 14.5 % (11.5-14.5) Platelet Count 273 x10^3/uL (140-400) Neutrophils (%) (Auto) 34 % (31-73) Lymphocytes (%) (Auto) 57 % (24-48) H Monocytes (%) (Auto) 7 % (0-9) Eosinophils (%) (Auto) 1 % (0-3) Basophils (%) (Auto) 1 % (0-3) Neutrophils # (Auto) 1.7 x10^3uL (1.8-7.7) L Lymphocytes # (Auto) 2.9 x10^3/uL (1.0-4.8) Monocytes # (Auto) 0.3 x10^3/uL (0.0-1.1) Eosinophils # (Auto) 0.0 x10^3/uL (0.0-0.7) Basophils # (Auto) 0.0 x10^3/uL (0.0-0.2) Prothrombin Time 13.2 SEC (11.7-14.0) Prothrombin Time INR 1.0 (0.8-1.1) Sodium Level 141 mmol/L (136-145) Potassium Level 3.6 mmol/L (3.5-5.1) Chloride Level 103 mmol/L (98-107) Carbon Dioxide Level 27 mmol/L (21-32) Anion Gap 11 (6-14) Blood Urea Nitrogen 10 mg/dL (7-20) Creatinine 0.8 mg/dL (0.6-1.0) Estimated GFR (Cockcroft-Gault) 89.1 BUN/Creatinine Ratio 13 (6-20) Glucose Level 97 mg/dL (70-99) Calcium Level 10.3 mg/dL (8.5-10.1) H Total Bilirubin 0.6 mg/dL (0.2-1.0) Aspartate Amino Transferase (AST) 16 U/L (15-37) Alanine Aminotransferase (ALT) 23 U/L (14-59) Alkaline Phosphatase 77 U/L (46-116) Troponin I Quantitative < 0.017 ng/mL (0.000-0.055) Total Protein 8.1 g/dL (6.4-8.2) Albumin 4.1 g/dL (3.4-5.0) Albumin/Globulin Ratio 1.0 (1.0-1.7) Lipase 65 U/L (73-393) L Serum Test, Qualitative Negative (NEG) Laboratory Tests 09/28/18 13:33 Laboratory Tests 09/28/18 13:33 EKG EKG EKG shows a sinus rhythm at 53 bpm, axis of -4, QTC of 445 ms, no ST elevations , no acute changes when compared with EKG of 08/27/2018. This was evaluated by me at 1358[] Radiology/Procedures Radiology/Procedures Examination: CT of the abdomen pelvis with IV contrast HISTORY: History of upper abdominal pain COMPARISON: 08/17/2016 TECHNIQUE: Axial CT images of the abdomen pelvis were performed with IV contrast. Coronal and sagittal reformats are performed Exposure: One or more of the following individualized dose reduction techniques were utilized for this examination: 1. Automated exposure control 2. Adjustment of the mA and/or kV according to patient size 3. Use of iterative reconstruction technique FINDINGS: Mild bibasilar lung airspace opacities likely atelectasis or infiltrates. No evidence of free air identified in the abdomen. Multiple cystic structures identified in the liver likely cysts with the largest measuring 1.1 cm in the right lobe of the liver is similar to prior exam. The visualized spleen, adrenals grossly appears unremarkable. The gallbladder is mildly distended. The stomach is mildly distended. The visualized pancreas grossly appears unremarkable. The small bowel is nondilated. Feces and gas noted in the colon. The appendix is normal. The bilateral kidneys enhance symmetrically. There is a cystic structure identified in the right kidney similar to prior exam likely a cyst measuring 2.4 cm. A small 1.2 cm cyst identified in the left kidney similar to prior exam. The urinary bladder is mildly distended. Mild degenerative changes lumbar spine. IMPRESSION: 1. No acute intra-abdominal findings. 2. Liver cysts. 2. Unchanged renal cysts. EXAM: CHEST 1 VIEW History: Upper abdominal pain COMPARISON: 08/27/2018 TECHNIQUE: Single portable radiograph of the chest FINDINGS: The cardiac silhouette is unremarkable. There is mild prominent bilateral interstitial lung markings likely chronic interstitial changes similar to prior exam. The costophrenic sulci are clear and well demarcated. IMPRESSION: Mild prominent bilateral interstitial lung markings likely chronic interstitial changes similar to prior exam. [] Course & Med Decision Making Course & Med Decision Making Pertinent Labs and Imaging studies reviewed. (See chart for details) ED course: Patient arrived, was placed in bed, and tolerated exam well. She will was transported to and from [place] with any complications. She achieve significant relief with the medications administered in the emergency department. After the return of lab and imaging studies, these were discussed with the patient who voiced understanding. All questions were answered. Patient was discharged in improved condition. Medical decision making: There is no evidence of this being an acute coronary syndrome, no obstruction, perforation, pancreatitis, nor other significant intra -abdominal pathology.[] Dragon Disclaimer Dragon Disclaimer This electronic medical record was generated, in whole or in part, using a voice recognition dictation system. Departure Departure Impression: Primary Impression: Abdominal pain Additional Impression: Chest pain Disposition: 01 HOME, SELF-CARE Condition: IMPROVED Referrals: UNKNOWN PCP NAME (PCP) Patient Instructions: Abdominal Pain, Diet for Gastroesophageal Reflux Disease , Adult, Gastritis, Adult, Gastroesophageal Reflux Disease, Adult Additional Instructions: Follow-up with your regular doctor in 2 days. Continue to take your medication as prescribed. Return to the ER if worsening discomfort or any other concerns. Scripts Sucralfate (CARAFATE) 1 Gm Tablet 1 GM PO QID, #80 TAB Prov: JESSICA FRIEDMAN DO 09/28/18 Problem Qualifiers Primary Impression: Abdominal pain Abdominal location: unspecified location Qualified Codes: R10.9 - Unspecified abdominal pain Additional Impression: Chest pain Chest pain type: unspecified Qualified Codes: R07.9 - Chest pain, unspecified JESSICA FRIEDMAN DO Sep 28, 2018 13:50
[2018-09-28 13:52] LABS: PROTHROMBIN TIME PATIENT 13.2 SEC (11.7-14.0)
[2018-09-28 13:58] LABS: PREG TEST PT QUAL NEGATIVE (NEG)
[2018-09-28 13:59] LABS: CALCIUM 10.3 mg/dL (8.5-10.1); CREATININE 0.8 mg/dL (0.6-1.0); GFR 89.1; POTASSIUM 3.6 mmol/L (3.5-5.1)
[2018-09-28 14:04] LABS: ALBUMIN 4.1 g/dL (3.4-5.0); TOTAL BILIRUBIN 0.6 mg/dL (0.2-1.0); TOTAL PROTEIN 8.1 g/dL (6.4-8.2)
[2018-09-28] MEDS ORDERED: CONTRAST GIVEN. MC PRN (14:15)
[2018-09-28] MEDS ORDERED: IOHEXOL 300 MG/ML 100ML VIAL. IV ONE (14:15)
--- NOTE | 2018-09-28 15:02 | RAD ---
Examination: CT of the abdomen pelvis with IV contrast HISTORY: History of upper abdominal pain COMPARISON: 08/17/2016 TECHNIQUE: Axial CT images of the abdomen pelvis were performed with IV contrast. Coronal and sagittal reformats are performed Exposure: One or more of the following individualized dose reduction techniques were utilized for this examination: 1. Automated exposure control 2. Adjustment of the mA and/or kV according to patient size 3. Use of iterative reconstruction technique FINDINGS: Mild bibasilar lung airspace opacities likely atelectasis or infiltrates. No evidence of free air identified in the abdomen. Multiple cystic structures identified in the liver likely cysts with the largest measuring 1.1 cm in the right lobe of the liver is similar to prior exam. The visualized spleen, adrenals grossly appears unremarkable. The gallbladder is mildly distended. The stomach is mildly distended. The visualized pancreas grossly appears unremarkable. The small bowel is nondilated. Feces and gas noted in the colon. The appendix is normal. The bilateral kidneys enhance symmetrically. There is a cystic structure identified in the right kidney similar to prior exam likely a cyst measuring 2.4 cm. A small 1.2 cm cyst identified in the left kidney similar to prior exam. The urinary bladder is mildly distended. Mild degenerative changes lumbar spine. IMPRESSION: 1. No acute intra-abdominal findings. 2. Liver cysts. 2. Unchanged renal cysts. Electronically signed by: Cipriano Bright MD (09/28/2018 2:59 PM) [facility]
--- NOTE | 2018-09-28 15:06 | RAD ---
EXAM: CHEST 1 VIEW History: Upper abdominal pain COMPARISON: 08/27/2018 TECHNIQUE: Single portable radiograph of the chest FINDINGS: The cardiac silhouette is unremarkable. There is mild prominent bilateral interstitial lung markings likely chronic interstitial changes similar to prior exam. The costophrenic sulci are clear and well demarcated. IMPRESSION: Mild prominent bilateral interstitial lung markings likely chronic interstitial changes similar to prior exam. Electronically signed by: Cipriano Bright MD (09/28/2018 3:03 PM) [facility]
[2018-09-28] MEDS ORDERED: SUCR1TAB35 PO (15:20)
--- NOTE | 2018-09-28 17:25 | EKG ---
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
[2018-10-26] MEDS ORDERED: NEOM10DR32 EACH EAR (17:19)
[2018-10-26] MEDS ORDERED: HYDR28OI2 TP (17:19)
[2018-10-26] MEDS ORDERED: TRIA15CR2 TP (19:44)
[2018-10-26] MEDS ORDERED: PANT20TA2 PO (19:44)
[2018-10-26] MEDS ORDERED: RANI300C PO (19:44)
[2018-10-26] MEDS ORDERED: POLY17PO29 PO (19:44)
== END 2018-09-28 15:45 | disposition home or self-care (01) ==
LOC: ER 12:49
DX: R07.89 Other chest pain (principal); R10.10 Upper abdominal pain, unspecified; K76.89 Other specified diseases of liver; N28.1 Cyst of kidney, acquired; K21.9 Gastro-esophageal reflux disease without esophagitis; E78.00 Pure hypercholesterolemia, unspecified; I10 Essential (primary) hypertension; Z90.710 Acquired absence of both cervix and uterus; Z98.890 Other specified postprocedural states; Z88.0 Allergy status to penicillin; Z88.6 Allergy status to analgesic agent
CPT/HCPCS: 36415; 71045; 74177; 80053; 81001; 83690; 84484; 84703; 85025; 85610; 87086; 93005; 96374; 96375; 99284; C9113; J0780; J7030; Q9967; 99283; 99285-25

== ENCOUNTER → 2018-10-07 | Outpatient (CLI) | payer OTHER ==
[2018-09-28 13:15] VITALS: BP 131/71
[~2018-10-07] MED LIST changes: +HYDR28OI2 TP; +NEOM10DR32 EACH EAR; +PANT20TA2 PO; +POLY17PO29 PO; +RANI300C PO; +SUCR1TAB35 PO; +TRIA15CR2 TP
--- NOTE | 2018-10-07 15:58 | RAD ---
DATE: 10/07/2018 EXAM: MAMMO EV SCREENING BILATERAL HISTORY: Routine screening COMPARISON: 05/15/2017 This study was interpreted with the benefit of Computerized Aided Detection (CAD). Breast Density: SCATTERED The breast parenchyma shows scattered fibroglandular densities. Breast parenchyma level B. FINDINGS: No new or enlarging breast densities are seen. No suspicious microcalcifications are evident. IMPRESSION: There is no mammographic evidence of malignancy either breast. BI-RADS CATEGORY: 2 BENIGN FINDING(S) RECOMMENDED FOLLOW-UP: 12M 12 MONTH FOLLOW-UP PQRS compliance statement: Patient information was entered into a reminder system with a target due date for the next mammogram. Mammography is a sensitive method for finding small breast cancers, but it does not detect them all and is not a substitute for careful clinical examination. A negative mammogram does not negate a clinically suspicious finding and should not result in delay in biopsying a clinically suspicious abnormality. "Our facility is accredited by the [employer] Mammography Program."
== END | disposition home or self-care (01) ==
LOC: MAMMO 13:54
PROVIDERS: ATTEND Family Medicine
DX: Z12.31 Encounter for screening mammogram for malignant neoplasm of breast (principal)
CPT/HCPCS: 77063; 77067

== ENCOUNTER 2018-10-12 13:13 | Inpatient (IN) | payer OTHER ==
[~2018-10-12] VITALS: Ht 167.6 cm; Wt 78.9 kg
[~2018-10-12 13:13] MED LIST changes: -HYDR28OI2 TP; -NEOM10DR32 EACH EAR; -PANT20TA2 PO; -POLY17PO29 PO; -RANI300C PO; -TRIA15CR2 TP
[2018-10-12] MEDS ORDERED: HALOPERIDOL LACTATE 5 MG/ML VIAL. IM ONE (14:00)
--- NOTE | 2018-10-12 14:06 | PHYS DOC ---
Past Medical History Past Medical History: GERD, High Cholesterol, Hypertension, Other Additional Past Medical Histor: gastritis Past Surgical History: , Hysterectomy Additional Past Surgical Histo: Endoscopy Alcohol Use: Occasionally Drug Use: None Adult General Chief Complaint Chief Complaint: ANXIETY/PANIC ATTACK HPI HPI Patient is a 58-year-old female who presents to the emergency department for evaluation. The patient's states that she awakened this morning and seemed altered, she has an extremely colorful affect, and this is not normal for her. She has not had similar symptoms in the past. She does admit to occasionally smoking marijuana but does not use any other drugs. She denies any suicidal or homicidal thoughts, but appears somewhat manic and animated. She is , however, able to be redirected. She denies any pain. There are no alleviating or exacerbating factors to her symptoms. This appears to be in acute mental status change for the patient. Review of Systems Review of Systems Constitutional: Denies fever or chills [] Eyes: Denies change in visual acuity, redness, or eye pain [] HENT: Denies nasal congestion or sore throat [] Respiratory: Denies cough or shortness of breath [] Cardiovascular: The patient denies any shortness of breath, chest pain, palpitations, or orthopnea [] GI: Denies abdominal pain, nausea, vomiting, bloody stools or diarrhea [] : Denies dysuria or hematuria [] Musculoskeletal: Denies back pain or joint pain [] Integument: Denies rash or skin lesions [] Neurologic: Denies headache, focal weakness or sensory changes [] Endocrine: Denies polyuria or polydipsia [] All other systems were reviewed and found to be within normal limits, except as documented in this note. Current Medications Current Medications Current Medications Medications (Trade) Dose Ordered Sig/Gayatri Start Time Stop Time Status Last Admin Dose Admin Haloperidol Lactate (Haldol Inj) 5 mg 1X ONCE 10/12/18 14:00 10/12/18 14:10 DC 10/12/18 14:08 5 MG Lorazepam (Ativan) 1 mg 1X ONCE 10/12/18 14:00 10/12/18 14:10 DC 10/12/18 14:00 1 MG Allergies Allergies Allergies Coded Allergies Type Severity Reaction Last Updated Verified Penicillins Allergy Severe swelling 08/17/16 Yes ibuprofen Allergy Intermediate Rash 09/11/17 Yes Physical Exam Physical Exam PHYSICAL EXAM: CONSTITUTIONAL: Well developed, well nourished HEAD: normocephalic, atraumatic EENT: PERRL, EOMI. Conjunctivae normal color, sclerae non-icteric; moist mucous membranes. NECK: Supple, non-tender; no meningismus. LUNGS: Lungs CTA, breathing even and unlabored. Normal air movement. HEART: Regular rate and rhythm, no murmur CHEST: No deformity; non-tender ABDOMEN: The abdomen is soft, and non-tender, no masses or bruits. EXTREM: Normal ROM; no deformity, no calf tenderness. Normal pulses palpable in all extremities. There is no pedal edema. SKIN: No rash; no diaphoresis NEURO: Alert; normal speech and cognition; CN's grossly intact; strength grossly intact without focal deficit. BACK: No CVA TTP. PSYCHIATRIC: The patient is extremely animated, colorful affect. Occasional anxiety. Current Patient Data Vital Signs Vital Signs Date Time Temp Pulse Resp B/P (MAP) Pulse Ox O2 Delivery O2 Flow Rate FiO2 10/12/18 13:50 98.5 86 16 127/67 (87) 100 Room Air 98.5 Lab Values Laboratory Tests Test 10/12/18 13:15 10/12/18 13:55 Urine Collection Type Unknown Urine Color Yellow Urine Clarity Clear Urine pH 5.0 Urine Specific [place] 1.020 Urine Protein Negative mg/dL (NEG-TRACE) Urine Glucose (UA) Negative mg/dL (NEG) Urine Ketones (Stick) 40 mg/dL (NEG) Urine Blood Negative (NEG) Urine Nitrite Negative (NEG) Urine Bilirubin Negative (NEG) Urine Urobilinogen Dipstick 0.2 mg/dL (0.2 mg/dL) Urine Leukocyte Esterase Negative (NEG) Urine RBC 0 /HPF (0-2) Urine WBC 5-10 /HPF (0-4) Urine Squamous Epithelial Cells Mod /LPF Urine Bacteria Moderate /HPF (0-FEW) Urine Mucus Mod /LPF Urine Opiates Screen Neg (NEG) Urine Methadone Screen Neg (NEG) Urine Barbiturates Neg (NEG) Urine Phencyclidine Screen Neg (NEG) Urine Amphetamine/Methamphetamine Neg (NEG) Urine Benzodiazepines Screen Neg (NEG) Urine Cocaine Screen Neg (NEG) Urine Cannabinoids Screen Pos (NEG) Urine Ethyl Alcohol Neg (NEG) White Blood Count 5.8 x10^3/uL (4.0-11.0) Red Blood Count 4.79 x10^6/uL (3.50-5.40) Hemoglobin 13.9 g/dL (12.0-15.5) Hematocrit 42.7 % (36.0-47.0) Mean Corpuscular Volume 89 fL (79-100) Mean Corpuscular Hemoglobin 29 pg (25-35) Mean Corpuscular Hemoglobin Concent 33 g/dL (31-37) Red Cell Distribution Width 14.6 % (11.5-14.5) H Platelet Count 282 x10^3/uL (140-400) Neutrophils (%) (Auto) 71 % (31-73) Lymphocytes (%) (Auto) 22 % (24-48) L Monocytes (%) (Auto) 6 % (0-9) Eosinophils (%) (Auto) 1 % (0-3) Basophils (%) (Auto) 0 % (0-3) Neutrophils # (Auto) 4.2 x10^3uL (1.8-7.7) Lymphocytes # (Auto) 1.3 x10^3/uL (1.0-4.8) Monocytes # (Auto) 0.3 x10^3/uL (0.0-1.1) Eosinophils # (Auto) 0.1 x10^3/uL (0.0-0.7) Basophils # (Auto) 0.0 x10^3/uL (0.0-0.2) Sodium Level 139 mmol/L (136-145) Potassium Level 3.8 mmol/L (3.5-5.1) Chloride Level 102 mmol/L (98-107) Carbon Dioxide Level 20 mmol/L (21-32) L Anion Gap 17 (6-14) H Blood Urea Nitrogen 9 mg/dL (7-20) Creatinine 0.7 mg/dL (0.6-1.0) Estimated GFR (Cockcroft-Gault) 104.0 BUN/Creatinine Ratio 13 (6-20) Glucose Level 102 mg/dL (70-99) H Calcium Level 10.5 mg/dL (8.5-10.1) H Total Bilirubin 0.7 mg/dL (0.2-1.0) Aspartate Amino Transferase (AST) 18 U/L (15-37) Alanine Aminotransferase (ALT) 24 U/L (14-59) Alkaline Phosphatase 86 U/L (46-116) Creatine Kinase 84 U/L (26-192) Creatine Kinase MB (Mass) 0.9 ng/mL (0.0-3.6) Creatine Kinase MB Relative Index 1.1 % (0-4) Troponin I Quantitative < 0.017 ng/mL (0.000-0.055) Total Protein 8.6 g/dL (6.4-8.2) H Albumin 4.2 g/dL (3.4-5.0) Albumin/Globulin Ratio 1.0 (1.0-1.7) Thyroid Stimulating Hormone (TSH) 0.664 uIU/mL (0.358-3.74) Free Thyroxine 1.30 ng/dL (0.76-1.46) Salicylates Level 3.1 mg/dL (2.8-20.0) Salicylate Last Dose Date Unknown Salicylate Last Dose Time Unknown Acetaminophen Level < 2 mcg/ml (10-30) L Acetaminophen Last Dose Date Unknown Acetaminophen Last Dose Time Unknown Ethyl Alcohol Level < 10 mg/dL (0-10) Laboratory Tests 10/12/18 13:55 Laboratory Tests 10/12/18 13:55 EKG EKG [Normal sinus rhythm at a rate of 56 beats for minute, normal axis, normal intervals. There are no acute ischemic ST/T changes.] Radiology/Procedures Radiology/Procedures [PROCEDURE: PORTABLE CHEST 1V EXAM: CHEST 1 VIEW History: Chest pain, anxiety COMPARISON: 10/25/2018 TECHNIQUE: Single portable radiograph of the chest FINDINGS: The cardiac silhouette is unremarkable. The lungs are clear bilaterally. The costophrenic sulci are clear and well demarcated. IMPRESSION: No radiographic evidence of an acute cardiopulmonary process.] PROCEDURE: CT HEAD WO CONTRAST CT HEAD INDICATION: Altered mental status COMPARISON: None Available. Exposure: One or more of the following individualized dose reduction techniques were utilized for this examination: 1. Automated exposure control 2. Adjustment of the mA and/or kV according to patient size 3. Use of iterative reconstruction technique TECHNIQUE: 5 mm contiguous axial images were obtained from the skull base to the vertex in both bone and soft tissue algorithm. FINDINGS: No abnormal attenuation within the brain parenchyma. No evidence of acute intracranial hemorrhage. No extra-axial fluid collections. No mass effect or midline shift. Ventricular size is appropriate. Basal cisterns are patent. No fractures identified.Wong-white differentiation is preserved.Globes and orbits are within normal limits. Paranasal sinuses and mastoid air cells are clear. IMPRESSION: No acute intracranial findings. Course & Med Decision Making Course & Med Decision Making Pertinent Labs and Imaging studies reviewed. (See chart for details) [3:45 PM:]The patient's condition remains stable. I spoke with the hospitalist , who accepted the patient to the hospital for further evaluation and treatment. The exact etiology of the patient's mental status changes unclear. Would be unusual that she would have an acute psychosis at this age, although it is possible that she did obtain some marijuana that was different substance. She is much more calm after treatment with Haldol and Ativan. Dragon Disclaimer Dragon Disclaimer This electronic medical record was generated, in whole or in part, using a voice recognition dictation system. Departure Departure Impression: Primary Impression: Change in mental status Disposition: ADMITTED INPATIENT Admitting Physician: Bridget Trevino Condition: STABLE Referrals: LISA VEGA MD (PCP) JASON KENDRICK MD Oct 12, 2018 14:06
[2018-10-12 14:10] LABS: BASO % 0 % (0-3); EOS # 0.1 x10^3/uL (0.0-0.7); EOS % 1 % (0-3); HEMATOCRIT 42.7 % (36.0-47.0); HEMOGLOBIN 13.9 g/dL (12.0-15.5); LYMPH # 1.3 x10^3/uL (1.0-4.8); LYMPH % 22 % (24-48); MEAN CORPUSCULAR HEMOGLOBIN 29 pg (25-35); MEAN CORPUSCULAR HGB CONC 33 g/dL (31-37); MEAN CORPUSCULAR VOLUME 89 fL (79-100); MONO # 0.3 x10^3/uL (0.0-1.1); MONO % 6 % (0-9); NEUT # 4.2 x10^3uL (1.8-7.7); NEUT % 71 % (31-73); PLATELET COUNT 282 x10^3/uL (140-400); RED BLOOD COUNT 4.79 x10^6/uL (3.50-5.40); RED CELL DISTRIBUTION WIDTH 14.6 % (11.5-14.5); WHITE BLOOD COUNT 5.8 x10^3/uL (4.0-11.0)
[2018-10-12 14:11] LABS: BILIRUBIN,URINE NEGATIVE (NEG); CLARITY,URINE CLEAR; COLOR,URINE YELLOW; NITRITE,URINE NEGATIVE (NEG); PROTEIN,URINE NEGATIVE (NEG-TRACE); UROBILINOGEN,URINE 0.2 mg/dL (0.2 mg/dL)
[2018-10-12 14:19] LABS: BARBITURATES NEG (NEG); BENZODIAZEPINES NEG (NEG); CANNABINOIDS POS (NEG); COCAINE NEG (NEG); METHADONE NEG (NEG); OPIATES NEG (NEG); PHENCYCLIDINE NEG (NEG)
[2018-10-12 14:20] LABS: AMPHETAMINE/METHAMPHETAMINE NEG (NEG)
[2018-10-12 14:26] LABS: BACTERIA,URINE MODERATE /HPF (0-FEW); RBC,URINE 0 /HPF (0-2); SQUAMOUS EPITHELIAL CELL,UR MOD /LPF
[2018-10-12 14:38] LABS: ACETAMIN < 2 mcg/ml (10-30); ETHANOL < 10 mg/dL (0-10); SALIC 3.1 mg/dL (2.8-20.0)
[2018-10-12 14:41] LABS: CALCIUM 10.5 mg/dL (8.5-10.1); CREATININE 0.7 mg/dL (0.6-1.0); POTASSIUM 3.8 mmol/L (3.5-5.1)
--- NOTE | 2018-10-12 14:49 | RAD ---
EXAM: CHEST 1 VIEW History: Chest pain, anxiety COMPARISON: 10/25/2018 TECHNIQUE: Single portable radiograph of the chest FINDINGS: The cardiac silhouette is unremarkable. The lungs are clear bilaterally. The costophrenic sulci are clear and well demarcated. IMPRESSION: No radiographic evidence of an acute cardiopulmonary process. Electronically signed by: Cipriano Bright MD (10/12/2018 2:46 PM) [facility]
[2018-10-12 14:58] LABS: ALBUMIN 4.2 g/dL (3.4-5.0); TOTAL BILIRUBIN 0.7 mg/dL (0.2-1.0); TOTAL PROTEIN 8.6 g/dL (6.4-8.2)
--- NOTE | 2018-10-12 14:58 | RAD ---
CT HEAD INDICATION: Altered mental status COMPARISON: None Available. Exposure: One or more of the following individualized dose reduction techniques were utilized for this examination: 1. Automated exposure control 2. Adjustment of the mA and/or kV according to patient size 3. Use of iterative reconstruction technique TECHNIQUE: 5 mm contiguous axial images were obtained from the skull base to the vertex in both bone and soft tissue algorithm. FINDINGS: No abnormal attenuation within the brain parenchyma. No evidence of acute intracranial hemorrhage. No extra-axial fluid collections. No mass effect or midline shift. Ventricular size is appropriate. Basal cisterns are patent. No fractures identified.Wong-white differentiation is preserved.Globes and orbits are within normal limits. Paranasal sinuses and mastoid air cells are clear. IMPRESSION: No acute intracranial findings. Electronically signed by: Cipriano Bright MD (10/12/2018 2:55 PM) [facility]
[2018-10-12 15:06] LABS: FREE T4 1.3 ng/dL (0.76-1.46); THYROID STIM HORMONE (TSH) 0.664 uIU/mL (0.358-3.74)
[2018-10-12 16:15] VITALS: BP 113/70
[2018-10-12] MEDS ORDERED: LORazepam 1 MG TABLET PO PRN (16:15)
[2018-10-12] MEDS ORDERED: diphenhydrAMINE HCL 25 MG CAPSULE PO PRN (16:15)
[2018-10-12] MEDS ORDERED: ONDANSETRON ODT 4 MG TAB.RAPDIS. PO PRN ×2 (16:15)
[2018-10-12] MEDS ORDERED: ONDANSETRON PF 4 MG/2 ML VIAL. IV PRN (16:15)
[2018-10-12] MEDS ORDERED: ACETAMINOPHEN 500 MG TABLET PO PRN (16:15)
[2018-10-12] MEDS: SUCRALFATE 1 GM TABLET. PO SCH ×3 (16:59→21:00)
[2018-10-12] MEDS: IV NORMAL SALINE 1000ML BAG 1,000 ML IV SCH (17:00)
--- NOTE | 2018-10-12 17:00 | NUR ---
Pt arrived to unit by w/c, from ED, report received from JEN Ortiz. Family present on admission. Pt very drowsy and with unsteady gait upon transfer from w/c to bed. Twin sister provided most of history since Pt was very sleepy. Pt denies pain or discomfort upon arrival. IVFs started, allergies verified, Pt considered a fall risk at this time, bed in low position, call light in reach. Admission assessment completed.
[2018-10-12 19:00] VITALS: BP 140/80
[2018-10-12] MEDS ORDERED: ATORVASTATIN CALCIUM 20 MG TABLET PO SCH (21:00)
[2018-10-12 23:00] VITALS: BP 131/76
[2018-10-13 03:00] VITALS: BP 140/93
[2018-10-13] MEDS: IV NORMAL SALINE 1000ML BAG 1,000 ML IV SCH (03:19)
[2018-10-13 05:04] LABS: CALCIUM 9.4 mg/dL (8.5-10.1); CREATININE 0.7 mg/dL (0.6-1.0); POTASSIUM 3.4 mmol/L (3.5-5.1)
[2018-10-13 07:00] VITALS: BP 127/84
--- NOTE | 2018-10-13 07:04 | EKG ---
[facility] [address] [place] [address] Test Date: 2018-10-12 Test Time: 14:16:58 Pat Name: NORMA VILLA Department: Room: 436 1 Gender: F Podiatry Professor: : 1960 Requested By: JASON KENDRICK Order Number: [id number] Reading MD: Ajay Aviles MD Measurements Intervals [place] Rate: 56 P: 64 TN: 166 QRS: 20 QRSD: 86 T: 42 QT: 428 QTc: 415 Interpretive Statements SINUS RHYTHM Electronically Signed On 10-16-2018 15:51:30 CDT by Ajay Aviles MD
[2018-10-13] MEDS ORDERED: PANTOPRAZOLE 40 MG TABLET.DR. PO SCH (07:30)
[2018-10-13] MEDS: SUCRALFATE 1 GM TABLET. PO SCH (07:59)
[2018-10-13] MEDS ORDERED: LOSARTAN POTASSIUM 50 MG TABLET. PO SCH (09:00)
[2018-10-13] MEDS ORDERED: amLODIPine BESYLATE 5 MG TABLET PO SCH (09:00)
[2018-10-13 11:00] VITALS: BP 128/73
--- NOTE | 2018-10-13 11:10 | SSS ---
ADMIT DATE: 10/13/2018 CHIEF COMPLAINT: Mental status change. HISTORY OF PRESENT ILLNESS: The patient is a pleasant 58-year-old female who apparently developed mental status change last night. She thinks it was from the Prilosec she had been started on. Apparently, her noticed that she was a little altered mentally. Initial workup in the ER was negative; however, the patient was unable to be discharged. She did have a small UTI. She was admitted overnight for observation. This morning, she looks great. She wants to go home. She is up in the chair. I plan to discharge on p.o. antibiotics. PAST MEDICAL HISTORY: GERD, hypertension, hyperlipidemia, gastritis, , hysterectomy, endoscopy. ALLERGIES: PENICILLIN, IBUPROFEN. FAMILY HISTORY: Hypertension. SOCIAL HISTORY: She does not drink, smoke or take drugs. MEDICATIONS: Reviewed, please refer to the MRAD. Atorvastatin, amlodipine, losartan, ondansetron, Carafate, omeprazole. REVIEW OF SYSTEMS: GENERAL: No history of weight change, weakness or fevers. SKIN: No bruising, hair changes or rashes. EYES: No blurred, double or loss of vision. NOSE AND THROAT: No history of nosebleeds, hoarseness or sore throat. HEART: No history of palpitations, chest pain or shortness of breath on exertion. LUNGS: Denies cough, hemoptysis, wheezing or shortness of breath. GASTROINTESTINAL: Denies changes in appetite, nausea, vomiting, diarrhea or constipation. GENITOURINARY: No history of frequency, urgency, hesitancy or nocturia. NEUROLOGIC: Denies history of numbness, tingling, tremor or weakness. PSYCHIATRIC: No history of panic, anxiety or depression. ENDOCRINE: No history of heat or cold intolerance, polyuria or polydipsia. EXTREMITIES: Denies muscle weakness, joint pain, pain on walking or stiffness. PHYSICAL EXAMINATION: VITAL SIGNS: Stable. GENERAL: She is alert, cooperative, requesting discharge. HEENT: She is wearing a wig. Her oral mucosa is moist. Pupils are equally round and reactive to light and accommodation. HEART: Normal S1, S2. LUNGS: Clear. ABDOMEN: Soft. EXTREMITIES: No edema. SKIN: No rashes. ENDOCRINE: No thyromegaly. LYMPHATICS: No cervical nodes. HEMATOPOIETIC: No bruising. PSYCHIATRIC: She is stable. NEUROLOGICAL: She is moving all extremities. No focal deficits. LABORATORY DATA: Chest x-ray negative. CT of the head negative. ASSESSMENT AND PLAN: Resolving mental status change, suspect metabolic encephalopathy secondary to urinary tract infection. The patient was observed overnight. This morning she feels great. We plan to discharge on p.o. Cipro. DISPOSITION: Home. ACTIVITY: As tolerated. DIET: Low sodium. MEDICATIONS: Please see the MRAD. TOTAL TIME: 32 minutes. REKHA CHAVES DO DR: FRANCISCO/beck JOB#: [id number] / [id number]
--- NOTE | 2018-10-13 12:15 | NUR ---
Pt. discharged to home with Rx, verbalized understanding of discharge instructions. Pt. states she has all belongings with her.
[2018-10-26] MEDS ORDERED: NEOM10DR32 EACH EAR (17:19)
[2018-10-26] MEDS ORDERED: HYDR28OI2 TP (17:19)
[2018-10-26] MEDS ORDERED: TRIA15CR2 TP (19:44)
[2018-10-26] MEDS ORDERED: RANI300C PO (19:44)
[2018-10-26] MEDS ORDERED: POLY17PO29 PO (19:44)
[2018-10-26] MEDS ORDERED: PANT20TA2 PO (19:44)
== END 2018-10-13 12:30 | disposition home or self-care (01) | DRG 689 ==
LOC: ER 13:13 → 4 NORTH 15:40
PROVIDERS: ADMIT Internal Medicine; ATTEND Internal Medicine
DX: N39.0 Urinary tract infection, site not specified (principal); G93.41 Metabolic encephalopathy; I10 Essential (primary) hypertension; E78.00 Pure hypercholesterolemia, unspecified; K21.9 Gastro-esophageal reflux disease without esophagitis; E78.5 Hyperlipidemia, unspecified; F12.90 Cannabis use, unspecified, uncomplicated; Z90.710 Acquired absence of both cervix and uterus; Z88.6 Allergy status to analgesic agent; Z88.0 Allergy status to penicillin; Z82.49 Family history of ischemic heart disease and other diseases of the circulatory system
CPT/HCPCS: 36415; 70450; 71045; 80048; 80053; 80307; 80329; 81001; 82553; 84439; 84443; 84484; 85025; 87086; 93005; 96372; 96374; G0480; J1630; J2060; J7030; 99285-25

== ENCOUNTER 2019-01-08 09:37 | Emergency (ER) | payer OTHER ==
[~2019-01-08] VITALS: Ht 167.6 cm; Wt 86.2 kg
[~2019-01-08 09:37] MED LIST changes: +HYDR28OI2 TP; +NEOM10DR32 EACH EAR; +PANT20TA2 PO; +POLY17PO29 PO; +RANI300C PO; +TRIA15CR2 TP
[2019-01-08 09:48] VITALS: BP 118/90
[2019-01-08 09:57] LABS: BILIRUBIN,URINE NEGATIVE (NEG); CLARITY,URINE CLEAR; COLOR,URINE YELLOW; NITRITE,URINE NEGATIVE (NEG); PROTEIN,URINE NEGATIVE (NEG-TRACE)
[2019-01-08 10:03] LABS: BARBITURATES NEG (NEG); BENZODIAZEPINES NEG (NEG); CANNABINOIDS POS (NEG); COCAINE NEG (NEG); METHADONE NEG (NEG); OPIATES NEG (NEG); PHENCYCLIDINE NEG (NEG)
[2019-01-08 10:08] LABS: AMPHETAMINE/METHAMPHETAMINE NEG (NEG)
--- NOTE | 2019-01-08 10:14 | PHYS DOC ---
Past Medical History Past Medical History: GERD, High Cholesterol, Hypertension, Other Additional Past Medical Histor: gastritis Past Surgical History: , Hysterectomy Additional Past Surgical Histo: Endoscopy Alcohol Use: Occasionally Drug Use: Marijuana Adult General Chief Complaint Chief Complaint: BACK PAIN - NO INJURY [facility] HPI Patient is a 59 year old female with history of hypertension, acid reflex, high cholesterol, who presents to the ED today complaining of 10 out of 10 left flank/low back pain, symptoms began over the weekend during her birthday constitution party. Patient denies any known injury. States the pain is worse when she rotates her waist from [id number]. Denies anything specifically relieving symptoms. Denies any dysuria, urgency frequency or hematuria. Patient denies any pain radiating to bilateral lower extremities, denies any loss of bowel bladder function Review of Systems Review of Systems Constitutional: Denies fever or chills [] Eyes: Denies change in visual acuity, redness, or eye pain [] HENT: Denies nasal congestion or sore throat [] Respiratory: Denies cough or shortness of breath [] Cardiovascular: No additional information not addressed in HPI [] GI: Denies abdominal pain, nausea, vomiting, bloody stools or diarrhea [] : Denies dysuria or hematuria [] Musculoskeletal: Reports left flank pain, low back pain left side. Integument: Denies rash or skin lesions [] Neurologic: Denies headache, focal weakness or sensory changes [] All other systems were reviewed and found to be within normal limits, except as documented in this note. Allergies Allergies Allergies Coded Allergies Type Severity Reaction Last Updated Verified Penicillins Allergy Severe swelling 08/17/16 Yes ibuprofen Allergy Intermediate Rash 09/11/17 Yes Physical Exam Physical Exam Constitutional: Well developed, well nourished, no acute distress, non-toxic appearance. [] HENT: Normocephalic, atraumatic, bilateral external ears normal, oropharynx moist, no oral exudates, nose normal. [] Eyes: PERRLA, EOMI, conjunctiva normal, no discharge. [] Neck: Normal range of motion, no tenderness, supple, no stridor. [] Cardiovascular:Heart rate regular rhythm, no murmur [] Lungs & Thorax: Bilateral breath sounds clear to auscultation [] Abdomen: Bowel sounds normal, soft, no tenderness, no masses, no pulsatile masses. [] Skin: Warm, dry, no erythema, no rash. [] Back: No tenderness, no CVA tenderness. [] Extremities: Tenderness on palpation of the left low lumbar spine, no midline lumbar spine tenderness, no cyanosis, no clubbing, ROM intact, no edema. [] Neurologic: Alert and oriented X 3, normal motor function, normal sensory function, no focal deficits noted. Bubbling head no hx of Parkinson-but states this is chronic Psychologic: Affect normal, judgement normal, mood normal. [] Current Patient Data Vital Signs Vital Signs Date Time Temp Pulse Resp B/P (MAP) Pulse Ox O2 Delivery O2 Flow Rate FiO2 01/08/19 09:48 98.6 79 20 118/90 (99) 97 Room Air 98.6 Lab Values Laboratory Tests Test 01/08/19 09:41 Urine Collection Type Unknown Urine Color Yellow Urine Clarity Clear Urine pH 6.0 Urine Specific [place] 1.025 Urine Protein Negative mg/dL (NEG-TRACE) Urine Glucose (UA) Negative mg/dL (NEG) Urine Ketones (Stick) Trace mg/dL (NEG) Urine Blood Negative (NEG) Urine Nitrite Negative (NEG) Urine Bilirubin Negative (NEG) Urine Urobilinogen Dipstick 1.0 mg/dL (0.2 mg/dL) Urine Leukocyte Esterase Small (NEG) Urine RBC Occ /HPF (0-2) Urine WBC 1-4 /HPF (0-4) Urine Squamous Epithelial Cells Many /LPF Urine Bacteria Many /HPF (0-FEW) Urine Mucus Marked /LPF Urine Opiates Screen Neg (NEG) Urine Methadone Screen Neg (NEG) Urine Barbiturates Neg (NEG) Urine Phencyclidine Screen Neg (NEG) Urine Amphetamine/Methamphetamine Neg (NEG) Urine Benzodiazepines Screen Neg (NEG) Urine Cocaine Screen Neg (NEG) Urine Cannabinoids Screen Pos (NEG) Urine Ethyl Alcohol Neg (NEG) EKG EKG [] Radiology/Procedures Radiology/Procedures [] Course & Med Decision Making Course & Med Decision Making Pertinent Labs and Imaging studies reviewed. (See chart for details) This is a 59-year-old female patient presenting to the ED today with left flank/low back pain since began over the weekend a birthday constitution party no injury no cauda equina syndrome. Urine analysis is negative for blood, noted for small amount of leukocytes, urine is contaminated with squamous cell epithelium. Patient has no urgency, frequency, dysuria. Her symptoms appear musculoskeletal and were elicited in the ED with movements. Patient was discharged home with cyclobenzaprine, Medrol Dosepak and instructed to take [id number] Tylenol follow-up with PCP in 1-2 weeks. Dragon Disclaimer Dragon Disclaimer This electronic medical record was generated, in whole or in part, using a voice recognition dictation system. Departure Departure Impression: Primary Impression: Back pain Disposition: HOME, SELF-CARE Condition: STABLE Referrals: LISA VEGA MD (PCP) follow up in 1 week Patient Instructions: Back Exercises, Back Pain, Adult Additional Instructions: You were elevated in the emergency room for low back pain. Take the prescribed medications as ordered. Follow-up with your own doctor in the next 1-2 weeks. You can apply ice or heat to the affected areas. Scripts Cyclobenzaprine Hcl (CYCLOBENZAPRINE HCL) 10 Mg Tablet 1 TAB PO TID, #30 TAB Prov: DANDRE NICOLE APRN 01/08/19 Methylprednisolone (MEDROL) 4 Mg Tab.ds.pk 1 PKG PO UD, #1 PKG Prov: RAINERKATHERINEDANDRE APRN 01/08/19 Problem Qualifiers Primary Impression: Back pain Back pain location: low back pain Chronicity: acute Back pain laterality: left Sciatica presence: without sciatica Qualified Codes: M54.5 - Low back pain DANDRE NICOLE APRN Jan 08, 2019 10:13
[2019-01-08 10:16] LABS: BACTERIA,URINE MANY /HPF (0-FEW); SQUAMOUS EPITHELIAL CELL,UR MANY /LPF
[2019-01-08 10:17] LABS: RBC,URINE OCC /HPF (0-2)
[2019-01-08] MEDS ORDERED: METH4TAB2 PO (10:44)
[2019-01-08] MEDS ORDERED: CYCL10TA2 PO (10:44)
== END 2019-01-08 11:10 | disposition home or self-care (01) ==
LOC: ER 09:37
DX: M54.5 Low back pain (principal); R10.9 Unspecified abdominal pain; K21.9 Gastro-esophageal reflux disease without esophagitis; E78.00 Pure hypercholesterolemia, unspecified; I10 Essential (primary) hypertension; Z98.890 Other specified postprocedural states; Z90.710 Acquired absence of both cervix and uterus; Z88.0 Allergy status to penicillin; Z88.6 Allergy status to analgesic agent
CPT/HCPCS: 80307; 81001; 99284

== ENCOUNTER 2019-02-08 16:57 | Observation (INO) | payer OTHER ==
[~2019-02-08] VITALS: Ht 167.6 cm; Wt 72.1 kg
[~2019-02-08 16:57] MED LIST changes: +CYCL10TA2 PO
[2019-02-08] MEDS ORDERED: ASPIRIN CHEWABLE 81 MG TABLET. PO ONE (17:30)
[2019-02-08 17:40] LABS: BASO % 1 % (0-3); EOS % 1 % (0-3); HEMATOCRIT 37.9 % (36.0-47.0); HEMOGLOBIN 13.1 g/dL (12.0-15.5); LYMPH # 2.3 x10^3/uL (1.0-4.8); LYMPH % 52 % (24-48); MEAN CORPUSCULAR HEMOGLOBIN 31 pg (25-35); MEAN CORPUSCULAR HGB CONC 34 g/dL (31-37); MEAN CORPUSCULAR VOLUME 89 fL (79-100); MONO # 0.4 x10^3/uL (0.0-1.1); MONO % 8 % (0-9); NEUT # 1.7 x10^3/uL (1.8-7.7); NEUT % 39 % (31-73); PLATELET COUNT 272 x10^3/uL (140-400); RED BLOOD COUNT 4.26 x10^6/uL (3.50-5.40); WHITE BLOOD COUNT 4.4 x10^3/uL (4.0-11.0)
[2019-02-08] MEDS: NITROGLYCERIN SUBLINGUAL 0.4 MG BOTTLE OF 25. SL PRN ×2 (17:41→21:47)
[2019-02-08 17:52] LABS: PROTHROMBIN TIME PATIENT 12.9 SEC (11.7-14.0)
--- NOTE | 2019-02-08 17:55 | PHYS DOC ---
Past Medical History Past Medical History: GERD, High Cholesterol, Hypertension, Other Additional Past Medical Histor: gastritis (KIERRA FAN MD) Past Surgical History: , Hysterectomy Additional Past Surgical Histo: Endoscopy (KIERRA FAN MD) Additional Information: Denies smoking cigarettes. Alcohol Use: Occasionally Drug Use: Marijuana (KIERRA FAN MD) Adult General Chief Complaint Chief Complaint: CHEST PAIN HPI HPI Patient is a 59 year old female who presents with complaining of chest pain. Patient complaining of constant left-sided squeezing chest pain since last night with radiation to left side of neck and associated with shortness of breath, nausea, palpitation, dizziness. Patient states the pain was 10 over 10 last night and decreased to 8/10 today. Patient denies history of chest pain, cough and congestion, fever and chills, cardiac problem. Patient states she was in by her primary care physician 3 days ago and was told she had thyroid problem without starting any treatment. (KIERRA FAN MD) Review of Systems Review of Systems Constitutional: Denies fever or chills [] Eyes: Denies change in visual acuity, redness, or eye pain [] HENT: Denies nasal congestion or sore throat [] Respiratory: Denies cough, reports shortness of breath [] Cardiovascular: No additional information not addressed in HPI [] GI: Denies abdominal pain, nausea, vomiting, bloody stools or diarrhea [] : Denies dysuria or hematuria [] Musculoskeletal: Denies back pain or joint pain [] Integument: Denies rash or skin lesions [] Neurologic: Denies headache, focal weakness or sensory changes [] Endocrine: Denies polyuria or polydipsia [] All other systems were reviewed and found to be within normal limits, except as documented in this note. (KIERRA FAN MD) Current Medications Current Medications Current Medications Medications (Trade) Dose Ordered Sig/Gayatri Start Time Stop Time Status Last Admin Dose Admin Aspirin (Children'S Aspirin) 324 mg 1X ONCE 02/08/19 17:30 02/08/19 17:31 DC 02/08/19 17:39 324 MG Nitroglycerin (Nitrostat) 0.4 mg PRN Q5MIN PRN 02/08/19 19:00 02/08/19 19:00 DC (ARMANDO DOLL MD) Allergies Allergies Allergies Coded Allergies Type Severity Reaction Last Updated Verified Penicillins Allergy Severe swelling 08/17/16 Yes ibuprofen Allergy Intermediate Rash 09/11/17 Yes (ARMANDO DOLL MD) Physical Exam Physical Exam Constitutional: Well nourished, mild distress, non-toxic appearance. [] HENT: Normocephalic, atraumatic, oropharynx moist. Eyes: PERRLA, EOMI, conjunctiva normal, no discharge. [] Neck: Normal range of motion, no tenderness, supple, no stridor. [] Cardiovascular:Heart rate regular rhythm, no murmur [] Lungs & Thorax: Bilateral breath sounds clear to auscultation , left side chest reproducible pain[] Abdomen: Bowel sounds normal, soft, no tenderness, no masses, no pulsatile ma sses. [] Skin: Warm, dry, no erythema, no rash. [] Back: No tenderness, no CVA tenderness. [] Extremities: No tenderness, no cyanosis, no clubbing, ROM intact, no edema. [] Neurologic: Alert and oriented X 3, normal motor function, normal sensory function, no focal deficits noted. [] Psychologic: Affect anxious, judgement normal, mood normal. [] (KIERRA FAN MD) Current Patient Data Vital Signs Vital Signs Date Time Temp Pulse Resp B/P (MAP) Pulse Ox O2 Delivery O2 Flow Rate FiO2 02/08/19 17:41 71 162/65 02/08/19 17:20 98.2 17 98 Room Air 98.2 (ARMANDO DOLL MD) Lab Values Laboratory Tests Test 02/08/19 17:30 White Blood Count 4.4 x10^3/uL (4.0-11.0) Red Blood Count 4.26 x10^6/uL (3.50-5.40) Hemoglobin 13.1 g/dL (12.0-15.5) Hematocrit 37.9 % (36.0-47.0) Mean Corpuscular Volume 89 fL (79-100) Mean Corpuscular Hemoglobin 31 pg (25-35) Mean Corpuscular Hemoglobin Concent 34 g/dL (31-37) Red Cell Distribution Width 14.0 % (11.5-14.5) Platelet Count 272 x10^3/uL (140-400) Neutrophils (%) (Auto) 39 % (31-73) Lymphocytes (%) (Auto) 52 % (24-48) H Monocytes (%) (Auto) 8 % (0-9) Eosinophils (%) (Auto) 1 % (0-3) Basophils (%) (Auto) 1 % (0-3) Neutrophils # (Auto) 1.7 x10^3/uL (1.8-7.7) L Lymphocytes # (Auto) 2.3 x10^3/uL (1.0-4.8) Monocytes # (Auto) 0.4 x10^3/uL (0.0-1.1) Eosinophils # (Auto) 0.0 x10^3/uL (0.0-0.7) Basophils # (Auto) 0.0 x10^3/uL (0.0-0.2) Prothrombin Time 12.9 SEC (11.7-14.0) Prothrombin Time INR 1.0 (0.8-1.1) Sodium Level 144 mmol/L (136-145) Potassium Level 3.6 mmol/L (3.5-5.1) Chloride Level 106 mmol/L (98-107) Carbon Dioxide Level 26 mmol/L (21-32) Anion Gap 12 (6-14) Blood Urea Nitrogen 12 mg/dL (7-20) Creatinine 0.7 mg/dL (0.6-1.0) Estimated GFR (Cockcroft-Gault) 103.6 BUN/Creatinine Ratio 17 (6-20) Glucose Level 98 mg/dL (70-99) Calcium Level 10.0 mg/dL (8.5-10.1) Total Bilirubin 0.4 mg/dL (0.2-1.0) Aspartate Amino Transferase (AST) 14 U/L (15-37) L Alanine Aminotransferase (ALT) 23 U/L (14-59) Alkaline Phosphatase 77 U/L (46-116) Creatine Kinase 44 U/L (26-192) Troponin I Quantitative < 0.017 ng/mL (0.000-0.055) BT-Bqz-N-Type Natriuretic Peptide 41 pg/mL (0-124) Total Protein 7.5 g/dL (6.4-8.2) Albumin 3.7 g/dL (3.4-5.0) Albumin/Globulin Ratio 1.0 (1.0-1.7) Lipase 87 U/L (73-393) Thyroid Stimulating Hormone (TSH) 0.799 uIU/mL (0.358-3.74) Laboratory Tests 02/08/19 17:30 Laboratory Tests 02/08/19 17:30 (ARMANDO DOLL MD) EKG EKG EKG interpreted by me. EKG at 1703 showed normal sinus rhythm at rate of 64, left jordan axis, normal NM and QT intervals, no acute ST and T-wave abnormalities. (KIERRA FAN MD) Radiology/Procedures Radiology/Procedures [] (KIERRA FAN MD) Course & Med Decision Making Course & Med Decision Making Pertinent Labs and Imaging studies are pending. Evaluation of patient in ER showed 59-year-old female patient with complaining of chest pain since last night. Patient was anxious in ER and rated her pain 8/10. Aspirin and nitroglycerin was ordered. Labs are pending. Sign out given to at 1800 for further evaluation and final disposition. Discussed current findings and plan with patient and family, who acknowledge understanding and agreement. (KIERRA FAN MD) Course & Med Decision Making I SAW THE PATIENT SIGNOUT AT 6 PM. SAW AT 610 PM. HEART SCORE FOR ME IS H 1 E 0 A 1 R 2 T 0 = 4. TROP NEG, I REVIEWED EKG IT LOOKS OK. REPORTS A STRESS TEST AT [facility] THAT " I THINK IT WAS NORMAL IM NOT SURE". REIVEWED LAST ADMIT. D/W RIFFEL OVERNIGHT OBS ADMIT FOR CHEST PAIN. (AMRANDO DOLL MD) Dragon Disclaimer Dragon Disclaimer This electronic medical record was generated, in whole or in part, using a voice recognition dictation system. (KIERRA FAN MD) Departure Departure Impression: Primary Impression: Chest pain Disposition: ADMITTED INPATIENT Admitting Physician: BO (ARMANDO DOLL MD) Condition: STABLE Referrals: LISA VEGA MD (PCP) The HEART Score for CP Pts HEART Score for Chest Pain: HEART Score for Chest Pain Response (Comments) Value History Moderately Suspicious 1 ECG Normal 0 Age >45 - < 65 1 Risk Factors 1 or 2 Risk Factors 1 Total 3 Risk Factors: Risk Factors: DM, Current or recent (<one month) smoker, HTN, HLP, family history of CAD, obesity. Risk Scores: Score 0 - 3: 2.5% MACE over next 6 weeks - Discharge Home Score 4 - 6: 20.3% MACE over next 6 weeks - Admit for Clinical Observation Score 7 - 10: 72.7% MACE over next 6 weeks - Early Invasive Strategies (KIERRA FAN MD) KIERRA FAN MD Feb 08, 2019 17:55 ARMANDO DOLL MD Feb 08, 2019 19:03
[2019-02-08 17:59] LABS: CREATININE 0.7 mg/dL (0.6-1.0); GFR 103.6; POTASSIUM 3.6 mmol/L (3.5-5.1)
[2019-02-08 18:04] LABS: ALBUMIN 3.7 g/dL (3.4-5.0); TOTAL BILIRUBIN 0.4 mg/dL (0.2-1.0); TOTAL PROTEIN 7.5 g/dL (6.4-8.2)
[2019-02-08] MEDS ORDERED: NITROGLYCERIN SUBLINGUAL 0.4 MG BOTTLE OF 25. SL PRN (19:00)
--- NOTE | 2019-02-08 19:00 | RAD ---
AP chest x-ray HISTORY: Chest pain. COMPARISON: Chest x-ray October 12, 2018. FINDINGS: Heart size stable. Mediastinal silhouette is unremarkable. Interstitial linear densities of the lower lung zones stable to prior studies likely chronic interstitial lung disease. No pulmonary opacities. No pneumothorax or pleural effusions. Bones are unremarkable. IMPRESSION: No acute process. Stable exam. Electronically signed by: Rene Ibrahim MD (02/08/2019 6:57 PM) [facility]
[2019-02-08 22:10] VITALS: BP 109/68
[2019-02-09 01:21] VITALS: BP 138/62
--- NOTE | 2019-02-09 02:30 | NUR ---
Pt transferred from [address] [place] [address] at 0100, vital signs WNL, stable at this time reporting no pain, pt was attached to heart monitor, scds and teds. NSR on the heart monitor. Pt is alert and oriented x4. States she wants to return home and is feeling much better. Will continue to monitor closely. Pt unable to verify home medications.
[2019-02-09 03:07] VITALS: BP 131/78
[2019-02-09 03:32] VITALS: BP 131/79
--- NOTE | 2019-02-09 06:02 | EKG ---
[facility] [address] [place] [address] Test Date: 2019-02-08 Test Time: 17:03:22 Pat Name: NORMA VILLA Department: Room: Gender: F It Project Lead: : 1960 Requested By: KIERRA FAN Order Number: [id number] Reading MD: Measurements Intervals [place] Rate: 64 P: 60 NM: 162 QRS: -2 QRSD: 78 T: 26 QT: 394 QTc: 410 Interpretive Statements SINUS RHYTHM LEFTWARD AXIS OTHERWISE NORMAL ECG RI6.01 No previous ECG available for comparison
[2019-02-09 07:00] VITALS: BP 140/78
--- NOTE | 2019-02-09 09:18 | PDOC2 ---
CARDIAC CONSULT DATE OF CONSULT Date of Consult DATE: 02/09/19 TIME: 09:11 REASON FOR CONSULT Reason for Consult: Chest pain REFERRING PHYSICIAN Referring Physician: Dr. Patel SOURCE Source: Chart review, Patient HISTORY OF PRESENT ILLNESS HISTORY OF PRESENT ILLNESS This is a 59 yo female who presented secondary to chest pain. Patient reports pain began Saturday morning when she was in the kitchen cooking. Located in her left chest. Describes as pressure/aching. Radiated to her left shoulder and down left arm. [place] like maybe pain was GERD so she had some water, which did not affect pain. Associated with palpitations and diaphoresis. No shortness of breath, dizziness, diaphoresis, or nausea/vomiting. Pain has been intermittent since Saturday so she decided to come to the ED for further evaluation and treatment. She also reports having persistent cough since Saturday and now has sore throat. No fevers. Denies any recent WISDOM, orthopnea, or LE edema. Left chest is tender to palpitation, which patient reports the pain to be exactly what she has been experiencing intermittently since Saturday. PAST MEDICAL HISTORY Cardiovascular: HTN, Hyperlipidemia GI: GERD Psych: Anxiety PAST SURGICAL HISTORY Past Surgical History: Tonsillectomy, Hysterectomy FAMILY HISTORY Family History: Other (noncontributory to CV) SOCIAL HISTORY Social History Smoke: No ALCOHOL: occassional Drugs: Marijuana Lives: with Family CURRENT MEDICATIONS CURRENT MEDICATIONS Current Medications Medications (Trade) Dose Ordered Sig/Gayatri Route PRN Reason Start Time Stop Time Status Last Admin Dose Admin Aspirin (Children'S Aspirin) 324 mg 1X ONCE PO 02/08/19 17:30 02/08/19 17:31 DC 02/08/19 17:39 Nitroglycerin (Nitrostat) 0.4 mg PRN Q5MIN PRN SL CHEST PAIN 02/08/19 17:30 02/08/19 21:47 ALLERGIES ALLERGIES: Coded Allergies: Penicillins (Verified Allergy, Severe, swelling, 08/17/16) ibuprofen (Verified Allergy, Intermediate, Rash, 09/11/17) ROS Review of System 14 point ROS conducted with pertinent positives noted above in HPI. PHYSICAL EXAM PHYSICAL EXAM General: Alert, Oriented X3, Cooperative, No acute distress HEENT: Atraumatic, Mucous membr. moist/pink Lungs: Clear to auscultation, Normal air movement, left chest tenderness to palpation Heart: Regular rate (SR), Normal S1, Normal S2, No murmurs Abdomen: Soft, No tenderness Extremities: No cyanosis, No edema Skin: No breakdown, No significant lesion Neuro: Normal speech, Sensation intact Psych/Mental Status: Mental status NL, Mood NL MUSCULOSKELETAL: Osteoarthritic changes both hands VITALS/I&O VITALS/I&O: Vital Signs Date Time Temp Pulse Resp B/P (MAP) Pulse Ox O2 Delivery O2 Flow Rate FiO2 02/09/19 03:32 97.9 56 20 131/79 (96) 98 Room Air 97.9 I & O 02/08/19 02/08/19 02/09/19 15:00 23:00 07:00 Intake Total 0 ml Output Total 300 ml Balance -300 ml LABS Lab: Laboratory Tests Test 02/08/19 17:30 02/08/19 21:45 02/09/19 01:05 White Blood Count 4.4 x10^3/uL (4.0-11.0) Red Blood Count 4.26 x10^6/uL (3.50-5.40) Hemoglobin 13.1 g/dL (12.0-15.5) Hematocrit 37.9 % (36.0-47.0) Mean Corpuscular Volume 89 fL (79-100) Mean Corpuscular Hemoglobin 31 pg (25-35) Mean Corpuscular Hemoglobin Concent 34 g/dL (31-37) Red Cell Distribution Width 14.0 % (11.5-14.5) Platelet Count 272 x10^3/uL (140-400) Neutrophils (%) (Auto) 39 % (31-73) Lymphocytes (%) (Auto) 52 % (24-48) H Monocytes (%) (Auto) 8 % (0-9) Eosinophils (%) (Auto) 1 % (0-3) Basophils (%) (Auto) 1 % (0-3) Neutrophils # (Auto) 1.7 x10^3/uL (1.8-7.7) L Lymphocytes # (Auto) 2.3 x10^3/uL (1.0-4.8) Monocytes # (Auto) 0.4 x10^3/uL (0.0-1.1) Eosinophils # (Auto) 0.0 x10^3/uL (0.0-0.7) Basophils # (Auto) 0.0 x10^3/uL (0.0-0.2) Prothrombin Time 12.9 SEC (11.7-14.0) Prothrombin Time INR 1.0 (0.8-1.1) Sodium Level 144 mmol/L (136-145) Potassium Level 3.6 mmol/L (3.5-5.1) Chloride Level 106 mmol/L (98-107) Carbon Dioxide Level 26 mmol/L (21-32) Anion Gap 12 (6-14) Blood Urea Nitrogen 12 mg/dL (7-20) Creatinine 0.7 mg/dL (0.6-1.0) Estimated GFR (Cockcroft-Gault) 103.6 BUN/Creatinine Ratio 17 (6-20) Glucose Level 98 mg/dL (70-99) Calcium Level 10.0 mg/dL (8.5-10.1) Total Bilirubin 0.4 mg/dL (0.2-1.0) Aspartate Amino Transferase (AST) 14 U/L (15-37) L Alanine Aminotransferase (ALT) 23 U/L (14-59) Alkaline Phosphatase 77 U/L (46-116) Creatine Kinase 44 U/L (26-192) Troponin I Quantitative < 0.017 ng/mL (0.000-0.055) < 0.017 ng/mL (0.000-0.055) < 0.017 ng/mL (0.000-0.055) PY-Hyq-F-Type Natriuretic Peptide 41 pg/mL (0-124) Total Protein 7.5 g/dL (6.4-8.2) Albumin 3.7 g/dL (3.4-5.0) Albumin/Globulin Ratio 1.0 (1.0-1.7) Lipase 87 U/L (73-393) Thyroid Stimulating Hormone (TSH) 0.799 uIU/mL (0.358-3.74) Laboratory Tests 02/08/19 17:30 Laboratory Tests 02/08/19 17:30 ECHOCARDIOGRAM ECHOCARDIOGRAM <Conclusion> The left ventricular systolic function is normal. The Ejection Fraction is 55-60%. There is normal LV segmental wall motion. Transmitral Doppler flow pattern is Grade I-abnormal relaxation pattern. Trace mitral regurgitation. Trace tricuspid regurgitation. The PA pressure was estimated at 28 mmHg. There is no evidence of significant pericardial effusion. DATE: 08/28/18927 STRESS TEST STRESS TEST DATE: 02/12/17 1510 Conclusion 1. Regadenoson cardioisotope stress test did not show any evidence of ischemia or infarct. 2. Normal left ventricular systolic function with ejection fraction calculated a t 71%. 3. Low risk for cardiac events. Exercise treadmill report from [facility] (08/25/18) Very poor endurance, achieving only 3 minutes and 4.6 METs of activity At this level of exercise, no chest pain or significant arrhythmias. However, the ST segments do change with exercise, with 0.5 mm of slightly downsloping ST segment depression in the inferior and lateral leads. Pharmacologic MPI recommended ASSESSMENT/PLAN ASSESSMENT/PLAN 1. Chest pain, mixed features. Troponin series normal- AMI ruled out. Treadmill MPI 08/16 at [facility] with poor endurance as noted above. ST depression was noted with activity. Pharmacologic MPI recommended, but it does not appear that patient has had this conducted. 2. Hypertension; controlled 3. Hyperlipidemia 4. Anxiety 5. Asymptomatic SB: No blocks no pauses. lowest in the 40s. 6. Marijuana use; discussed/encouraged cessation Recommendations Continue ASA, statin, and antihypertensives. Lipid panel MPI today to r/o ischemic Avoid AV lm blocking agents Further recommendations pending above SHANELL FRANKS APRN Feb 09, 2019 09:18
[2019-02-09] MEDS ORDERED: LOSARTAN POTASSIUM 50 MG TABLET. PO SCH (10:00)
[2019-02-09] MEDS ORDERED: amLODIPine BESYLATE 5 MG TABLET PO SCH (10:00)
[2019-02-09 10:38] LABS: CHOLESTEROL/HDL RATIO 5.2
[2019-02-09 11:00] VITALS: BP 131/68
--- NOTE | 2019-02-09 11:14 | HP ---
ADMIT DATE: CHIEF COMPLAINT: Chest pain. HISTORY OF PRESENT ILLNESS: The patient is a pleasant middle-aged female, well known to our service. She presented last night with chest pain rated as 7/10. She has associated weakness, it has been occurring off and on for a couple of days. She tried taking some home meds, but that did not work. Describes as irritating. Moving makes it worse. I discussed the case with ER physician. We admitted the patient. She has now been examined on the telemetry floor, awaiting a stress test. PAST MEDICAL HISTORY: Previous chest pain that they thought was secondary to GERD, hypertension, hyperlipidemia, tonsillectomy, hysterectomy. ALLERGIES: PENICILLIN AND IBUPROFEN. FAMILY HISTORY: Coronary artery disease. SOCIAL HISTORY: She does not drink, smoke or take drugs. MEDICATIONS: Reviewed, please refer to the MRAD. REVIEW OF SYSTEMS: GENERAL: No history of weight change, weakness or fevers. SKIN: No bruising, hair changes or rashes. EYES: No blurred, double or loss of vision. NOSE AND THROAT: No history of nosebleeds, hoarseness or sore throat. HEART: No history of palpitations, chest pain or shortness of breath on exertion. LUNGS: Denies cough, hemoptysis, wheezing or shortness of breath. GASTROINTESTINAL: Denies changes in appetite, nausea, vomiting, diarrhea or constipation. GENITOURINARY: No history of frequency, urgency, hesitancy or nocturia. NEUROLOGIC: Denies history of numbness, tingling, tremor or weakness. PSYCHIATRIC: No history of panic, anxiety or depression. ENDOCRINE: No history of heat or cold intolerance, polyuria or polydipsia. EXTREMITIES: Denies muscle weakness, joint pain, pain on walking or stiffness. PHYSICAL EXAMINATION: VITAL SIGNS: Temperature afebrile, pulse 90, respirations 18, blood pressure 140/78. GENERAL: She is alert, cooperative. HEART: Normal S1, S2. LUNGS: Clear. ABDOMEN: Soft. EXTREMITIES: No edema. SKIN: No rash. ENDOCRINE: No thyromegaly. LYMPHATICS: No cervical nodes. HEMATOPOIETIC: No bruising. PSYCHIATRIC: She is stable. LABORATORY DATA: Troponin is 0. Hematology is normal. ASSESSMENT AND PLAN: Chest pain, rule out coronary artery disease. The patient has been admitted. We will check serial enzymes and serial EKGs. Consult Cardiology. They have seen the patient. They are ordering a stress test. Await stress test results. REKHA CHAVES DO DR: FRANCISCO/beck JOB#: [id number] / [id number]
[2019-02-09] MEDS ORDERED: REGADENOSON 0.4 MG/5 ML DISP.SYRIN. IV ONE (11:15)
--- NOTE | 2019-02-09 14:01 | RAD ---
MR#: [id number] Date of Study: 02/09/2019 Ordering Physician: SHANELL FRANKS, Referring Physician: CHARISSE RILEY Tech: RENALDO Arnold ARRT (R) (N) APPROVED REPORT Test Type: Pharmacological Stress Nurse/Tech: Nata Barber R.N. Test Indications: chest pain Cardiac History: high chol, htn, Medications: see ehr Medical History: see ehr Resting ECG: sr Resting Heart Rate: 53 bpm Resting Blood Pressure: 156/73mmHg Pretest Chest Pain: No chest pain Nurse/Tech Notes lungs cta, heart tones regular Consent: The procedure was explained to the patient in lay terms. Informed consent was witnessed. Ramírez eout was entered into [facility]. History and Stress Test performed by RT Colleen (R) (N) Pharm. Details Pharmacologic stress testing was performed using 0.4mg per 5ml of regadenoson given intravenously ove r 7-10 seconds. Stress Symptoms No chest pain or symptoms. POST EXERCISE Reason for Termination: Infusion complete Target HR: No Max HR: 120 bpm Max Blood Pressure: 176/69mmHg Chest Pain: No. Arrhythmia: No. INTERPRETATION Stress EKG Conclusion: The resting EKG shows a sinus rhythm with mild nonspecific ST-T wave changes. The stress EKG shows no significant changes from baseline. No EKG evidence of stressed induced ischemia. Imaging Protocol IMAGE PROTOCOL: Rest Tc-99m/stress Tc-99m 1 day Rest: Stress: Viability: Radiopharm.Tc99m HieqdbmouZn65k Sestamibi Rfrn06hNa 32mCi Img Date 02/09/2019 02/09/2019 Inj-Img Ewgt36iib. 60min. Rest Admin Site:IV - Right AntecubitalAdministrator:RENALDO Arnold ARRT (R)(N) Stress Admin Site: IV - Right AntecubitalAdministrator: RT Jefe Macias)(N) STRESS DATA End Diast. Vol.71.0mlAv. Heart Rate66.0bpm End Syst. Vol.19.0mlCO Index BSA0.0L/min Myocardial Upox623.0gEject. Wzjhqpxx52.0% Stress Rates Pk. Fill Rate2.97EDV/secLVtime Pk. Fill 121.13msec Pk. Empty Rate4.01ESV/secLVtime Pk. Ovgqx421.41msec 1/3 Pk. Fill2.10EDV/sec Stress Scores Regional WT1.00Summed WT3.00 Regional WM0.00Summed WM1.00 LV Perfusion The stress images show no significant defects. The rest images show no significant defects. Nuclear imaging shows no reversible ischemia or infarct. Wall Motion Left ventricular systolic function is normal with no regional wall motion abnormalities and an ejecti on fraction of greater than 70%. LV Perf. Quant 17 Seg. SSS0.00 17 Seg. SRS4.00 17 Seg. SDS0.00 Stress Defect Extent (% LAD)0.00Rest Defect Extent (% LAD)11.30Rev. Defect Extent (% LAD)0.00 Stress Defect Extent (% LCX) 0.00Rest Defect Extent (% LCX)5.00Rev. Defect Extent (% LCX)0.00 Stress Defect Extent (% RCA)0.00Rest Defect Extent (% RCA)0.00Rev. Defect Extent (% RCA)0.00 Stress Defect Extent (% FORTUNATO)0.00Rest Defect Extent (% FORTUNATO)5.40Rev. Defect Extent (% FORTUNATO)0.00 Conclusion 1. Mildly abnormal baseline EKG but no EKG evidence of stress-induced ischemia. 2. Nuclear imaging shows no reversible ischemia or infarct. 3. Normal left ventricular systolic function with an ejection fraction of greater than 70%. 4. Moderately low risk Lexiscan nuclear stress test. Signed by : Ernie Blevins MD Electronically Approved : 02/09/2019 14:01:08
--- NOTE | 2019-02-09 14:36 | NUR ---
SS following for discharge planning. SS reviewed pt chart. Pt is from home with spouse and is currently on room air. No discharge needs noted at this time. SS will continue to follow for discharge planning.
[2019-02-09 15:00] VITALS: BP 122/75
[2019-02-09] MEDS ORDERED: ASPI81TA50 PO (15:32)
--- NOTE | 2019-02-09 15:50 | DS ---
DATE OF DISCHARGE: 02/09/2019 ADMISSION DIAGNOSIS: Chest pain. DISCHARGE DIAGNOSIS: Atypical chest pain. HOSPITAL COURSE: The patient is a pleasant middle-aged female who presented with chest pain. We consulted Cardiology, did serial enzymes, serial EKGs. We did a stress test, which was negative. Her ejection fraction is above 60. I saw her and examined this morning. Heart tones were normal. Lungs were clear. Extremities showed no edema. She is doing well. We plan to discharge to home. DISPOSITION: Home. ACTIVITY: As tolerated. DIET: Low sodium. MEDICATIONS: Please see the MRAD. TOTAL TIME: 32 minutes. RADHAL Deepak CHAVES DO DR: FRANCISCO/beck JOB#: [id number] / [id number]
--- NOTE | 2019-02-09 16:15 | NUR ---
Discharge Note: NORMA VILLA [address] [place] [address] Discharge instructions and discharge home medications reviewed with Patient and a copy given. All questions have been answered and understanding verbalized. The following instructions and handouts were given: chest pain info, villa info, discharge instructions. Discontinued lines and drains: Peripheral IV intact. Patient discharged to Home or Self Care with Family Member via [facility] at 1615.
[2019-02-09] MEDS ORDERED: PANTOPRAZOLE 40 MG TABLET.DR. PO SCH (16:30)
[2019-02-09] MEDS ORDERED: ATORVASTATIN CALCIUM 20 MG TABLET PO SCH (21:00)
== END 2019-02-09 16:15 | disposition home or self-care (01) ==
LOC: ER 16:57 → 6 SOUTH 18:50 → 2 SOUTH 02-09 00:07
PROVIDERS: ADMIT Internal Medicine; ATTEND Internal Medicine
DX: R07.89 Other chest pain (principal); R42 Dizziness and giddiness; K21.9 Gastro-esophageal reflux disease without esophagitis; E78.5 Hyperlipidemia, unspecified; Z98.890 Other specified postprocedural states; Z90.710 Acquired absence of both cervix and uterus; Z82.49 Family history of ischemic heart disease and other diseases of the circulatory system; I10 Essential (primary) hypertension; E78.00 Pure hypercholesterolemia, unspecified; K29.70 Gastritis, unspecified, without bleeding; F12.90 Cannabis use, unspecified, uncomplicated; R53.1 Weakness
CPT/HCPCS: 36415; 71045; 78452; 80053; 80061; 82550; 83690; 83880; 84443; 84484; 85025; 85610; 93005; 93017; 99284; A9500; G0378; J2785; G0379

== ENCOUNTER 2019-05-22 07:12 | Emergency (ER) | payer OTHER ==
[~2019-05-22] VITALS: Ht 167.6 cm; Wt 82.1 kg
[~2019-05-22 07:12] MED LIST changes: +ASPI81TA50 PO; +OMEP40CA45 PO; -OMEP40CA5 PO
--- NOTE | 2019-05-22 07:29 | PHYS DOC ---
Past Medical History Past Medical History: GERD, High Cholesterol, Hypertension Additional Past Medical Histor: gastritis Past Surgical History: Hysterectomy Additional Past Surgical Histo: Endoscopy Alcohol Use: Occasionally Drug Use: Marijuana The HEART Score for CP Pts HEART Score for Chest Pain: HEART Score for Chest Pain Response (Comments) Value History Slighlty/Non-Suspicious 0 ECG Normal 0 Age >45 - < 65 1 Risk Factors 1 or 2 Risk Factors 1 Troponin < Normal Limit 0 Total 2 Risk Factors: Risk Factors: DM, Current or recent (<one month) smoker, HTN, HLP, family history of CAD, obesity. Risk Scores: Score 0 - 3: 2.5% MACE over next 6 weeks - Discharge Home Score 4 - 6: 20.3% MACE over next 6 weeks - Admit for Clinical Observation Score 7 - 10: 72.7% MACE over next 6 weeks - Early Invasive Strategies Adult General Chief Complaint Chief Complaint: OTHER COMPLAINTS HPI HPI 59 yo female presents to the ER with complaints of chest burning. Patient states this has been ongoing 4 days. She states she was seen at and worked up without findings. Patient denies nausea, vomiting, sob, abdominal pain. She has a history of HTN, HLD. Nothing makes her symptoms worse or better. Review of Systems Review of Systems Constitutional: Denies fever or chills [] Respiratory: Denies cough or shortness of breath [] Cardiovascular: No additional information not addressed in HPI [] GI: Denies abdominal pain, nausea, vomiting, bloody stools or diarrhea [] : Denies dysuria or hematuria [] Musculoskeletal: Denies back pain or joint pain [] Integument: Denies rash or skin lesions [] Neurologic: Denies headache, focal weakness or sensory changes [] All other systems were reviewed and found to be within normal limits, except as documented in this note. Current Medications Current Medications Current Medications Medications (Trade) Dose Ordered Sig/Gayatri Start Time Stop Time Status Last Admin Dose Admin Multi-Ingredient Mouthwash/Gargle (Gi Cocktail) 20 ml 1X ONCE 05/22/19 07:45 05/22/19 07:46 DC 05/22/19 07:38 20 ML Allergies Allergies Allergies Coded Allergies Type Severity Reaction Last Updated Verified Penicillins Allergy Severe swelling 08/17/16 Yes ibuprofen Allergy Intermediate Rash 09/11/17 Yes Physical Exam Physical Exam Constitutional: Well developed, well nourished, no acute distress, non-toxic appearance. [] HENT: Normocephalic, atraumatic, bilateral external ears normal, oropharynx moist, no oral exudates, nose normal. [] Eyes: PERRLA, EOMI, conjunctiva normal, no discharge. [] Cardiovascular:Heart rate regular rhythm, no murmur [] Lungs & Thorax: Bilateral breath sounds clear to auscultation [] Abdomen: Bowel sounds normal, soft, no tenderness, no masses, no pulsatile masses. [] Skin: Warm, dry, no erythema, no rash. [] Back: No tenderness, no CVA tenderness. [] Extremities: No tenderness, no edema. [] Neurologic: Alert and oriented X 3, no focal deficits noted. [] Psychologic: Affect normal, judgement normal, mood normal. [] Current Patient Data Vital Signs Vital Signs Date Time Temp Pulse Resp B/P (MAP) Pulse Ox O2 Delivery O2 Flow Rate FiO2 05/22/19 07:12 98.6 71 17 151/80 (103) 98 Room Air 98.6 Lab Values Laboratory Tests Test 05/22/19 07:30 White Blood Count 4.4 x10^3/uL (4.0-11.0) Red Blood Count 4.23 x10^6/uL (3.50-5.40) Hemoglobin 12.7 g/dL (12.0-15.5) Hematocrit 38.2 % (36.0-47.0) Mean Corpuscular Volume 90 fL (79-100) Mean Corpuscular Hemoglobin 30 pg (25-35) Mean Corpuscular Hemoglobin Concent 33 g/dL (31-37) Red Cell Distribution Width 14.2 % (11.5-14.5) Platelet Count 267 x10^3/uL (140-400) Neutrophils (%) (Auto) 54 % (31-73) Lymphocytes (%) (Auto) 38 % (24-48) Monocytes (%) (Auto) 7 % (0-9) Eosinophils (%) (Auto) 1 % (0-3) Basophils (%) (Auto) 1 % (0-3) Neutrophils # (Auto) 2.4 x10^3/uL (1.8-7.7) Lymphocytes # (Auto) 1.6 x10^3/uL (1.0-4.8) Monocytes # (Auto) 0.3 x10^3/uL (0.0-1.1) Eosinophils # (Auto) 0.0 x10^3/uL (0.0-0.7) Basophils # (Auto) 0.0 x10^3/uL (0.0-0.2) Sodium Level 146 mmol/L (136-145) H Potassium Level 3.9 mmol/L (3.5-5.1) Chloride Level 107 mmol/L (98-107) Carbon Dioxide Level 28 mmol/L (21-32) Anion Gap 11 (6-14) Blood Urea Nitrogen 13 mg/dL (7-20) Creatinine 0.7 mg/dL (0.6-1.0) Estimated GFR (Cockcroft-Gault) 103.6 BUN/Creatinine Ratio 19 (6-20) Glucose Level 100 mg/dL (70-99) H Calcium Level 10.2 mg/dL (8.5-10.1) H Total Bilirubin 0.7 mg/dL (0.2-1.0) Aspartate Amino Transferase (AST) 20 U/L (15-37) Alanine Aminotransferase (ALT) 33 U/L (14-59) Alkaline Phosphatase 76 U/L (46-116) Troponin I Quantitative < 0.017 ng/mL (0.000-0.055) Total Protein 7.6 g/dL (6.4-8.2) Albumin 4.1 g/dL (3.4-5.0) Albumin/Globulin Ratio 1.2 (1.0-1.7) Laboratory Tests 05/22/19 07:30 Laboratory Tests 05/22/19 07:30 EKG EKG EKG with NSR, hear rate 61, left axis deviation, non-urgent EKG[] Interpretation Time: 0724 Radiology/Procedures Radiology/Procedures [] Course & Med Decision Making Course & Med Decision Making Pertinent Labs and Imaging studies reviewed. (See chart for details) []59 yo female presents to the ER with complaints of chest burning. Patient states this has been ongoing 4 days. She states she was seen at and worked up without findings. Patient denies nausea, vomiting, sob, abdominal pain. She has a history of HTN, HLD. Nothing makes her symptoms worse or better. Reassessment of pain after GI cocktail - improved, patient resting comfortably a t this time Cardiac enzyme negative x 2 EKG reviewed without acute process Discussed findings with patient Randall Disclaimer Ruth Annon Disclaimer This electronic medical record was generated, in whole or in part, using a voice recognition dictation system. Departure Departure Impression: Primary Impression: Acid reflux disease Disposition: 01 HOME, SELF-CARE Condition: STABLE Referrals: LISA VEGA MD (PCP) Patient Instructions: Gastroesophageal Reflux Disease, Adult, [id number] Additional Instructions: Recommend follow up with PCP 3 - 5 days Return to the ER with worsening symptoms, intractable pain, fever, altered mental status Tylenol/Motrin as needed for pain JANNETH SHARPE MD May 22, 2019 07:29
--- NOTE | 2019-05-22 07:44 | EKG ---
[facility] [address] [place] [address] Test Date: 2019-05-22 Test Time: 07:24:23 Pat Name: NORMA VILLA Department: Room: Gender: F Pbx Installer: GURMEET : 1960 Requested By: JANNETH SHARPE Order Number: [id number] Reading MD: Measurements Intervals [place] Rate: 61 P: 56 MD: 164 QRS: -2 QRSD: 82 T: 25 QT: 408 QTc: 416 Interpretive Statements SINUS RHYTHM LEFTWARD AXIS OTHERWISE NORMAL ECG No previous ECG available for comparison
[2019-05-22] MEDS ORDERED: LIDO:MAALOX 1:1 20 ML SINGLE DOSE. SWSW ONE (07:45)
--- NOTE | 2019-05-22 07:46 | RAD ---
PORTABLE CHEST 1V History: Chest pain Comparison: February 08, 2019 Findings: Linear midlung atelectasis or scarring, unchanged. No focal consolidation. No pleural effusion. Normal heart size. Impression: 1. No acute cardiopulmonary process. Electronically signed by: Bassam Douglas DO (05/22/2019 7:43 AM) [id number]
[2019-05-22 07:48] LABS: BASO % 1 % (0-3); EOS % 1 % (0-3); HEMATOCRIT 38.2 % (36.0-47.0); HEMOGLOBIN 12.7 g/dL (12.0-15.5); LYMPH # 1.6 x10^3/uL (1.0-4.8); LYMPH % 38 % (24-48); MEAN CORPUSCULAR HEMOGLOBIN 30 pg (25-35); MEAN CORPUSCULAR HGB CONC 33 g/dL (31-37); MEAN CORPUSCULAR VOLUME 90 fL (79-100); MONO # 0.3 x10^3/uL (0.0-1.1); MONO % 7 % (0-9); NEUT # 2.4 x10^3/uL (1.8-7.7); NEUT % 54 % (31-73); PLATELET COUNT 267 x10^3/uL (140-400); RED BLOOD COUNT 4.23 x10^6/uL (3.50-5.40); RED CELL DISTRIBUTION WIDTH 14.2 % (11.5-14.5); WHITE BLOOD COUNT 4.4 x10^3/uL (4.0-11.0)
[2019-05-22 07:59] LABS: CALCIUM 10.2 mg/dL (8.5-10.1); CREATININE 0.7 mg/dL (0.6-1.0); GFR 103.6; POTASSIUM 3.9 mmol/L (3.5-5.1)
[2019-05-22 08:04] LABS: ALBUMIN 4.1 g/dL (3.4-5.0); ALBUMIN/GLOBULIN RATIO 1.2 (1.0-1.7); TOTAL BILIRUBIN 0.7 mg/dL (0.2-1.0); TOTAL PROTEIN 7.6 g/dL (6.4-8.2)
[2019-05-22 10:03] VITALS: BP 125/58
== END 2019-05-22 10:31 | disposition home or self-care (01) ==
LOC: ER 07:12
DX: K21.9 Gastro-esophageal reflux disease without esophagitis (principal); E78.00 Pure hypercholesterolemia, unspecified; I10 Essential (primary) hypertension; E78.5 Hyperlipidemia, unspecified; Z90.710 Acquired absence of both cervix and uterus; Z88.0 Allergy status to penicillin; Z88.8 Allergy status to other drugs, medicaments and biological substances
CPT/HCPCS: 36415; 71045; 80053; 84484; 85025; 93005; 99285-25

== ENCOUNTER 2019-06-07 08:05 | Emergency (ER) | payer OTHER ==
[~2019-06-07] VITALS: Ht 167.6 cm; Wt 84.8 kg
[2019-06-07] MEDS ORDERED: DICL50TA4 PO (08:46)
[2019-06-07] MEDS ORDERED: CYCL10TA2 PO (08:46)
--- NOTE | 2019-06-07 08:46 | PHYS DOC ---
Past Medical History Past Medical History: Anxiety, GERD, High Cholesterol, Hypertension Additional Past Medical Histor: gastritis Past Surgical History: Hysterectomy Additional Past Surgical Histo: Endoscopy Smoking: Cigarettes (the patient does not smoke cigarettes) Alcohol Use: Occasionally Drug Use: Marijuana Adult General Chief Complaint Chief Complaint: UPPER EXTREMITY PAIN HPI HPI Patient is a 59-year-old female who presents to the emergency department for evaluation. She states that for the past 24 hours she has had pain in her left shoulder area which radiates down her left arm. The pain is worsened by certain movements of her upper body, as well as palpation of her chest wall. She denies any other chest pain, denies shortness of breath, numbness, or weakness. Other than as stated above, there are no alleviating or exacerbating factors to her symptoms. Patient's HEART score is a 2, assuming a negative troponin. Patient had a negative cardiac stress test this past January. Review of Systems Review of Systems Constitutional: Denies fever or chills [] Eyes: Denies change in visual acuity, redness, or eye pain [] HENT: Denies nasal congestion or sore throat [] Respiratory: Denies cough or shortness of breath [] Cardiovascular: No additional information not addressed in HPI [] GI: Denies abdominal pain, nausea, vomiting, bloody stools or diarrhea [] : Denies dysuria or hematuria [] Musculoskeletal: Denies back pain or joint pain, except as noted in the history of present illness. [] Integument: Denies rash or skin lesions [] Neurologic: Denies headache, focal weakness or sensory changes [] Endocrine: Denies polyuria or polydipsia [] All other systems were reviewed and found to be within normal limits, except as documented in this note. Allergies Allergies Allergies Coded Allergies Type Severity Reaction Last Updated Verified Penicillins Allergy Severe swelling 08/17/16 Yes ibuprofen Allergy Intermediate Rash 09/11/17 Yes Physical Exam Physical Exam PHYSICAL EXAM: CONSTITUTIONAL: Well developed, well nourished HEAD: normocephalic, atraumatic EENT: PERRL, EOMI. Conjunctivae normal color, sclerae non-icteric; moist mucous membranes. NECK: Supple, non-tender; no meningismus. LUNGS: Lungs CTA, breathing even and unlabored. Normal air movement. HEART: Regular rate and rhythm, no murmur CHEST: No deformity; there is tenderness to palpation to the left upper chest wall, and left anterior shoulder region, which reproduces the patient's pain. ABDOMEN: The abdomen is soft, and non-tender, no masses or bruits. EXTREM: Normal ROM; no deformity, no calf tenderness. Normal pulses palpable in all extremities. There is no pedal edema. There is normal, painless range of motion in the left shoulder. The left arm is nontender to palpation. Skin is unremarkable. Distal PMS are intact in all extremities. SKIN: No rash; no diaphoresis NEURO: Alert; normal speech and cognition; CN's grossly intact; strength grossly intact without focal deficit. BACK: No CVA TTP. Current Patient Data Vital Signs Vital Signs Date Time Temp Pulse Resp B/P (MAP) Pulse Ox O2 Delivery O2 Flow Rate FiO2 06/07/19 08:18 98.4 60 16 144/67 (92) 96 Room Air 98.4 EKG EKG Normal sinus rhythm at a rate of 54 beats for minute, leftward axis, normal intervals. There are no acute ischemic ST/T changes, the EKG is unchanged compared to patient's prior EKG.[] Radiology/Procedures Radiology/Procedures [] Course & Med Decision Making Course & Med Decision Making Pertinent Lab studies reviewed. (See chart for details) []Bedside troponin is negative. Patient's symptoms are consistent with acute musculoskeletal pain. I discussed home care plan, the need for close follow-up, and return precautions. Dragon Disclaimer Dragon Disclaimer This electronic medical record was generated, in whole or in part, using a voice recognition dictation system. Departure Departure Impression: Primary Impression: Chest wall pain Disposition: HOME, SELF-CARE Condition: STABLE Referrals: LISA VEGA MD (PCP) Patient Instructions: Musculoskeletal Pain, Shoulder Pain Additional Instructions: Applying a heating pad to the affected area may help improve your symptoms. The prescribed medications may cause drowsiness-use caution while taking. Scripts Diclofenac Sodium (DICLOFENAC SODIUM) 50 Mg Tablet. 1 TAB PO BID, #20 TAB 0 Refills Prov: JASON KENDRICK MD 06/07/19 Cyclobenzaprine Hcl (CYCLOBENZAPRINE HCL) 10 Mg Tablet 1 TAB PO TID PRN for PAIN, #30 TAB Prov: JASON KENDRICK MD 06/07/19 JASON KENDRICK MD Jun 07, 2019 08:46
[2019-06-07 09:10] VITALS: BP 125/78
--- NOTE | 2019-06-07 14:36 | EKG ---
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
== END 2019-06-07 09:11 | disposition home or self-care (01) ==
LOC: ER 08:05
DX: R07.89 Other chest pain (principal); M25.512 Pain in left shoulder; F41.9 Anxiety disorder, unspecified; K21.9 Gastro-esophageal reflux disease without esophagitis; E78.00 Pure hypercholesterolemia, unspecified; I10 Essential (primary) hypertension; Z90.710 Acquired absence of both cervix and uterus; Z72.89 Other problems related to lifestyle; F12.90 Cannabis use, unspecified, uncomplicated; Z88.0 Allergy status to penicillin; Z88.8 Allergy status to other drugs, medicaments and biological substances
CPT/HCPCS: 84484; 93005; 99283

== ENCOUNTER 2019-07-26 09:25 | Emergency (ER) | payer OTHER ==
[~2019-07-26] VITALS: Ht 167.6 cm; Wt 87.1 kg
[~2019-07-26 09:25] MED LIST changes: +DICL50TA4 PO
[2019-07-26 09:56] VITALS: BP 132/87
--- NOTE | 2019-07-26 10:09 | PHYS DOC ---
Past Medical History Past Medical History: Anxiety, GERD, High Cholesterol, Hypertension Additional Past Medical Histor: gastritis Past Surgical History: Hysterectomy Additional Past Surgical Histo: Endoscopy Additional Information: nonsmoker Alcohol Use: Occasionally Drug Use: Marijuana Adult General Chief Complaint Chief Complaint: FEVER HPI HPI Patient is 59-year-old female with a past medical history of hypertension, high cholesterol, and GERD is presenting to the emergency department with sore throat and epigastric pain for 24 hours. Patient states that last night she began to have some chills, her throat started hurting, and then her stomach started to hurt. She describes the epigastric pain as dull, localized, she does not know anything that makes it better or worse. Patient denies nausea, vomiting, fever, chest pain, shortness of breath, constipation, and diarrhea. Patient denies any other trauma. Patient denies sick contacts. Patient reports mild nasal congestion. Review of Systems Review of Systems Constitutional: Denies fever, reports chills Eyes: Denies redness or eye pain HENT: Reports nasal congestion and sore throat Respiratory: Denies cough or shortness of breath Cardiovascular: Denies chest pain or palpitations GI: Reports epigastric abdominal pain, denies nausea and vomiting : Denies dysuria or hematuria Musculoskeletal: Denies back pain or joint pain Integument: Denies rash or skin lesions Neurologic: Denies headache, focal weakness or sensory changes Complete systems were reviewed and found to be within normal limits, except as documented in this note. Current Medications Current Medications Current Medications Medications (Trade) Dose Ordered Sig/Gayatri Start Time Stop Time Status Last Admin Dose Admin Dexamethasone (Decadron) 10 mg 1X ONCE 07/26/19 10:30 07/26/19 10:31 DC 07/26/19 10:27 10 MG Famotidine (Pepcid) 20 mg 1X ONCE 07/26/19 10:30 07/26/19 10:31 DC 07/26/19 10:27 20 MG Multi-Ingredient Mouthwash/Gargle (Gi Cocktail) 20 ml PRN QID PRN 07/26/19 10:15 07/26/19 10:57 DC 07/26/19 10:26 20 ML Allergies Allergies Allergies Coded Allergies Type Severity Reaction Last Updated Verified Penicillins Allergy Severe swelling 08/17/16 Yes ibuprofen Allergy Intermediate Rash 09/11/17 Yes Physical Exam Physical Exam Constitutional: Well developed, well nourished, no acute distress, non-toxic appearance HENT: Normocephalic, atraumatic, oropharynx moist, non-exudative, mildly erythematous, post nasal drip noted Eyes: Conjunctiva normal, no discharge Neck: Normal range of motion, no tenderness, supple Cardiovascular: Heart rate normal, regular rhythm Lungs & Thorax: Bilateral breath sounds clear to auscultation, no wheezing Abdomen: Soft, mild tenderness to the epigastric region, non-peritoneal Skin: Warm, dry, no erythema, no rash Extremities: No tenderness, ROM intact, no edema Neurologic: Alert and oriented X 3, no focal deficits noted Psychologic: Affect normal, judgement normal Current Patient Data Vital Signs Vital Signs Date Time Temp Pulse Resp B/P (MAP) Pulse Ox O2 Delivery O2 Flow Rate FiO2 07/26/19 09:56 97.8 88 16 132/87 (102) 100 Room Air 97.8 EKG EKG @1038 NSR at 78bpm, NO ST elevation, Radiology/Procedures Radiology/Procedures [] Course & Med Decision Making Course & Med Decision Making Patient is a 59-year-old female with past medical history of hypertension, high cholesterol, and GERD that is presenting to the emergency department with sore throat and epigastric discomfort. Patient was seen and examined at bedside. Physical exam was significant for mild tenderness in the epigastric region, throat was non-exudative mildly erythematous and non-edematous. Likely secondary to post-nasal drip GI cocktail, Pepcid, and steroids given for symptomatic improvement. EKG stable Patient stable for discharge with outpatient follow-up with PCP. Discussed findings and plan with patient, who acknowledges understanding and agreement. Dragon Disclaimer Dragon Disclaimer This electronic medical record was generated, in whole or in part, using a voice recognition dictation system. Departure Departure Impression: Primary Impression: Viral pharyngitis Additional Impression: GERD (gastroesophageal reflux disease) Disposition: 01 HOME, SELF-CARE Condition: STABLE Referrals: LISA VEGA MD (PCP) Patient Instructions: Gastroesophageal Reflux Disease, Adult, [id number], V iral and Bacterial Pharyngitis, [id number] Scripts Sucralfate (CARAFATE) 1 Gm/10 Ml Oral.susp 10 ML PO QID for 14 Days, L 0 Refills before food Prov: GLENDY LI DO 07/26/19 Famotidine (PEPCID) 20 Mg Tablet 20 MG PO BID for Pain, #30 TAB 0 Refills Prov: GLENDY LI DO 07/26/19 Problem Qualifiers Additional Impression: GERD (gastroesophageal reflux disease) Esophagitis presence: esophagitis presence not specified Qualified Codes: K21.9 - Gastro-esophageal reflux disease without esophagitis GLENDY LI DO Jul 26, 2019 10:09
[2019-07-26] MEDS ORDERED: LIDO:MAALOX 1:1 20 ML SINGLE DOSE. PO PRN (10:15)
[2019-07-26] MEDS ORDERED: SUCR1ORA5 PO (10:24)
[2019-07-26] MEDS ORDERED: FAMO-63 PO (10:24)
[2019-07-26] MEDS ORDERED: FAMOTIDINE 20 MG TABLET. PO ONE (10:30)
[2019-07-26] MEDS ORDERED: DEXAMETHASONE 4 MG TABLET PO ONE (10:30)
--- NOTE | 2019-07-27 07:30 | EKG ---
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
== END 2019-07-26 10:57 | disposition home or self-care (01) ==
LOC: ER 09:25
DX: J02.8 Acute pharyngitis due to other specified organisms (principal); B97.89 Other viral agents as the cause of diseases classified elsewhere; K21.9 Gastro-esophageal reflux disease without esophagitis; R10.13 Epigastric pain; F41.9 Anxiety disorder, unspecified; E78.00 Pure hypercholesterolemia, unspecified; I10 Essential (primary) hypertension; F12.90 Cannabis use, unspecified, uncomplicated; Z90.710 Acquired absence of both cervix and uterus; Z98.890 Other specified postprocedural states; Z79.899 Other long term (current) drug therapy; Z88.0 Allergy status to penicillin; Z88.6 Allergy status to analgesic agent
CPT/HCPCS: 93005; 99284; J8540

== ENCOUNTER 2020-02-02 09:43 | Emergency (ER) | payer OTHER ==
[~2020-02-02] VITALS: Ht 167.6 cm; Wt 82.2 kg
[~2020-02-02 09:43] MED LIST changes: +FAMO-63 PO; +SUCR1ORA5 PO
--- NOTE | 2020-02-02 10:22 | PHYS DOC ---
Past Medical History Past Medical History: Anxiety, GERD, High Cholesterol, Hypertension Additional Past Medical Histor: gastritis Past Surgical History: Hysterectomy Additional Past Surgical Histo: Endoscopy Smoking Status: Never Smoker Alcohol Use: Occasionally Drug Use: Marijuana General Adult EDM: Chief Complaint: Neck Pain HPI: HPI: Patient is a 60 year old female who presents with 2 days of left-sided throbbing pain that radiates down the left arm. She states she had been having bilateral ear pain but denies fever, nasal congestion, cough, shortness of breath, abdominal pain, nausea, vomiting, diarrhea, dizziness, headache, syncope, fall, vision changes, numbness or tingling. Patient states movement does make it worse. She states nothing makes it better. She rates the pain an 8 out of 10. She states she is just smokes marijuana but no cigarettes. She denies any injury that she can remember heavy lifting. Pain is reproduced and worsened with palpation over the left chest. Patient has a history of GERD, hy pertension, anxiety, high cholesterol. She states she only takes medication for her hypertension and GERD. Review of Systems: Review of Systems: Constitutional: Denies fever or chills. [] Eyes: Denies change in visual acuity. [] HENT: Denies nasal congestion or sore throat. [] Respiratory: Denies cough or shortness of breath. [] Cardiovascular: Left chest chest pain or denies edema. [] GI: Denies abdominal pain, nausea, vomiting, bloody stools or diarrhea. [] : Denies dysuria. [] Musculoskeletal: Denies back pain or joint pain. Left arm pain. [] Integument: Denies rash. [] Neurologic: Denies headache, focal weakness or sensory changes. [] Endocrine: Denies polyuria or polydipsia. [] Lymphatic: Denies swollen glands. [] Psychiatric: Denies depression or anxiety. [] Heart Score: HEART Score for Chest Pain: HEART Score for Chest Pain Response (Comments) Value History Slighlty/Non-Suspicious 0 ECG Normal 0 Age >45 - < 65 1 Risk Factors 1 or 2 Risk Factors 1 Troponin < Normal Limit 0 Total 2 Risk Factors: Risk Factors: DM, Current or recent (<one month) smoker, HTN, HLP, family history of CAD, obesity. Risk Scores: Score 0 - 3: 2.5% MACE over next 6 weeks - Discharge Home Score 4 - 6: 20.3% MACE over next 6 weeks - Admit for Clinical Observation Score 7 - 10: 72.7% MACE over next 6 weeks - Early Invasive Strategies Current Medications: Current Medications Medications (Trade) Dose Ordered Sig/Gayatri Start Time Stop Time Status Last Admin Dose Admin Acetaminophen/ Hydrocodone Bitart (Lortab 5/325) 1 tab 1X ONCE 02/02/20 10:45 02/02/20 10:46 Aspirin (Elza Aspirin) 325 mg 1X ONCE 02/02/20 10:45 02/02/20 10:46 Methylprednisolone Sodium Succinate (SOLU-Medrol 40MG VIAL) 60 mg 1X ONCE 02/02/20 10:45 02/02/20 10:46 Allergies: Allergies: Allergies Coded Allergies Type Severity Reaction Last Updated Verified Penicillins Allergy Severe swelling 08/17/16 Yes ibuprofen Allergy Intermediate Rash 09/11/17 Yes Physical Exam: PE: Constitutional: Well developed, well nourished, no acute distress, non-toxic ap pearance. [] HENT: Normocephalic, atraumatic, bilateral external ears normal, oropharynx moist, no oral exudates, nose normal. [] Eyes: PERRLA, EOMI, conjunctiva normal, no discharge. [] Neck: Normal range of motion, no tenderness, supple, no stridor. [] Cardiovascular:Heart rate regular rhythm, no murmur. Left chest pain worsened with palpation and no crepitus. [] Lungs & Thorax: Bilateral breath sounds clear to auscultation [] Abdomen: Bowel sounds normal, soft, no tenderness, no masses, no pulsatile m asses. [] Skin: Warm, dry, no erythema, no rash. [] Back: No tenderness, no CVA tenderness. [] Extremities: No tenderness, no cyanosis, no clubbing, ROM intact, no edema. [] Neurologic: Alert and oriented X 3, normal motor function, normal sensory function, no focal deficits noted. [] Psychologic: Affect normal, judgement normal, mood normal. [] EKG: EK and read by Dr. Ferrell as sinus rhythm and no STEMI [] Radiology/Procedures: Radiology/Procedures: [] Impression: [facility] [address] [place] [address] IMAGING REPORT Signed PATIENT: NORMA VILLA ACCOUNT: [id number] : 1960 LOCATION: ER AGE: 60 SEX: F EXAM STATUS: REG ER ORD. PHYSICIAN: CORY JONES APRN REASON: PAIN, LEFT SIDED CHEST PAIN PROCEDURE: CHEST PA & LATERAL EXAM: CHEST PA LATERAL INDICATION: Reason: PAIN, LEFT SIDED CHEST PAIN / Spl. Instructions: / History: . TECHNIQUE: Single view COMPARISON: 05/26/2019 chest x-ray FINDINGS: The heart size is normal. The great vessels appear unremarkable. There is no hilar or mediastinal mass. The lungs lungs show no focal infiltrates.. There is no pleural effusion or pneumothorax. There are no significant osseous abnormalities. IMPRESSION: No acute cardiopulmonary process. No specific findings to explain left chest pain Electronically signed by: Coreen Willis MD (02/02/2020 11:03 AM) [id number] DICTATED and SIGNED BY: COREEN WILLIS MD DATE: 02/02/20 1103 Course & Med Decision Making: Course & Med Decision Making Pertinent Labs and Imaging studies reviewed. (See chart for details) Alert and oriented. Speaks in full complete sentences. Ambulatory with a steady gait. Patient has full range of motion of all of her extremities. No unilateral swelling of any extremities. No edema in any extremities. Lungs are clear to auscultation all lobes. Vital signs within normal limits. Skin pink warm and dry. Heart score 2. Pain is worsened with palpation over the left chest. She states that pain is worsened with movement of the left arm. She denies any injury. Radial pulses strong and present. Cap refill less than 3 seconds. Patient is sent home and to follow up with primary care physician. I have discussed this patient findings and care plan with Dr Ferrell. [] Randall Disclaimer: Randall Disclaimer: This electronic medical record was generated, in whole or in part, using a voice recognition dictation system. Departure Departure Impression: Primary Impression: Acute nonspecific chest pain with low risk of coronary artery disease Disposition: HOME, SELF-CARE Condition: STABLE Referrals: UNKNOWN PCP NAME (PCP) JOSEP ARAIZA MD Patient Instructions: Chest Pain (Nonspecific) Additional Instructions: Follow up with primary care physician or cardiac doctor if symptoms persist. If symptoms become severe return to the ED. Scripts Hydrocodone/Apap 5-325 (NORCO 5-325 TABLET) 1 Each Tablet 1 TAB PO PRN Q6HRS PRN for PAIN, #8 TAB 0 Refills Prov: CORY JONES APRN 02/02/20 Orphenadrine Citrate (ORPHENADRINE CITRATE) 100 Mg Tablet.er 1 TAB PO BID, #14 TAB Prov: CORY JONES APRN 02/02/20 Justicifation of Admission Dx: Justifications for Admission: Justification of Admission Dx: N/A CORY JONES APRN Feb 02, 2020 10:22
[2020-02-02 10:25] LABS: BASO % 1 % (0-3); EOS % 1 % (0-3); HEMATOCRIT 39.4 % (36.0-47.0); HEMOGLOBIN 13.3 g/dL (12.0-15.5); LYMPH # 1.8 x10^3/uL (1.0-4.8); LYMPH % 37 % (24-48); MEAN CORPUSCULAR HEMOGLOBIN 30 pg (25-35); MEAN CORPUSCULAR HGB CONC 34 g/dL (31-37); MEAN CORPUSCULAR VOLUME 90 fL (79-100); MONO # 0.2 x10^3/uL (0.0-1.1); MONO % 5 % (0-9); NEUT # 2.9 x10^3/uL (1.8-7.7); NEUT % 58 % (31-73); PLATELET COUNT 252 x10^3/uL (140-400); RED CELL DISTRIBUTION WIDTH 14.1 % (11.5-14.5)
--- NOTE | 2020-02-02 10:27 | EKG ---
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
[2020-02-02 10:32] LABS: CALCIUM 9.7 mg/dL (8.5-10.1); CREATININE 0.7 mg/dL (0.6-1.0); GFR 103.3; POTASSIUM 3.8 mmol/L (3.5-5.1)
[2020-02-02 10:34] LABS: PROTHROMBIN TIME PATIENT 12.9 SEC (11.7-14.0)
[2020-02-02 10:38] LABS: ALBUMIN 3.9 g/dL (3.4-5.0); ALBUMIN/GLOBULIN RATIO 1.2 (1.0-1.7); TOTAL BILIRUBIN 0.4 mg/dL (0.2-1.0); TOTAL PROTEIN 7.2 g/dL (6.4-8.2)
[2020-02-02] MEDS ORDERED: methylPREDNISolone SOD SUCC PF 40 MG/ML VIAL. IV ONE (10:45)
[2020-02-02] MEDS ORDERED: HYDROcodone/APAP 5/325MG 1 TAB TABLET PO ONE (10:45)
[2020-02-02] MEDS ORDERED: ASPIRIN 325 MG TABLET PO ONE (10:45)
--- NOTE | 2020-02-02 11:06 | RAD ---
EXAM: CHEST PA LATERAL INDICATION: Reason: PAIN, LEFT SIDED CHEST PAIN / Spl. Instructions: / History: . TECHNIQUE: Single view COMPARISON: 05/26/2019 chest x-ray FINDINGS: The heart size is normal. The great vessels appear unremarkable. There is no hilar or mediastinal mass. The lungs lungs show no focal infiltrates.. There is no pleural effusion or pneumothorax. There are no significant osseous abnormalities. IMPRESSION: No acute cardiopulmonary process. No specific findings to explain left chest pain Electronically signed by: Clara Willis MD (02/02/2020 11:03 AM) [id number]
[2020-02-02 11:23] VITALS: BP 153/70
[2020-02-02 11:48] LABS: BILIRUBIN,URINE NEGATIVE (NEG); CLARITY,URINE CLEAR; COLOR,URINE YELLOW; NITRITE,URINE NEGATIVE (NEG); PROTEIN,URINE NEGATIVE (NEG-TRACE); UROBILINOGEN,URINE 0.2 mg/dL (0.2 mg/dL)
[2020-02-02 11:49] LABS: BARBITURATES NEG (NEG); BENZODIAZEPINES NEG (NEG); CANNABINOIDS POS (NEG); COCAINE NEG (NEG); METHADONE NEG (NEG); OPIATES NEG (NEG); PHENCYCLIDINE NEG (NEG)
[2020-02-02 11:51] LABS: AMPHETAMINE/METHAMPHETAMINE NEG (NEG)
[2020-02-02 12:12] LABS: BACTERIA,URINE MODERATE /HPF (0-FEW); RBC,URINE OCC /HPF (0-2); SQUAMOUS EPITHELIAL CELL,UR MANY /LPF
[2020-02-02] MEDS ORDERED: ORPH100T PO (12:26)
[2020-02-02] MEDS ORDERED: HYDR-3164 PO (12:26)
== END 2020-02-02 12:20 | disposition home or self-care (01) ==
LOC: ER 09:43
DX: R07.89 Other chest pain (principal); H92.03 Otalgia, bilateral; F41.9 Anxiety disorder, unspecified; K21.9 Gastro-esophageal reflux disease without esophagitis; E78.00 Pure hypercholesterolemia, unspecified; I10 Essential (primary) hypertension; F12.90 Cannabis use, unspecified, uncomplicated; Z90.710 Acquired absence of both cervix and uterus; Z98.890 Other specified postprocedural states; Z88.0 Allergy status to penicillin; Z88.6 Allergy status to analgesic agent
CPT/HCPCS: 36415; 71046; 80053; 80307; 81001; 83690; 83880; 84484; 85025; 85610; 87086; 93005; 96374; 99285; J2920

== ENCOUNTER 2020-03-06 08:38 | Emergency (ER) | payer OTHER ==
[~2020-03-06] VITALS: Ht 167.6 cm; Wt 82.7 kg
[~2020-03-06 08:38] MED LIST changes: +ORPH100T PO
[2020-03-06 09:07] VITALS: BP 154/70
[2020-03-06] MEDS ORDERED: HYDR-3164 PO (09:14)
[2020-03-06] MEDS ORDERED: CIPR10DR AS (09:14)
[2020-03-06] MEDS ORDERED: DOXY100C14 PO (09:14)
--- NOTE | 2020-03-06 09:14 | PHYS DOC ---
Past Medical History Past Medical History: Anxiety, GERD, High Cholesterol, Hypertension Additional Past Medical Histor: gastritis Past Surgical History: Hysterectomy Additional Past Surgical Histo: Endoscopy Smoking Status: Never Smoker Alcohol Use: Occasionally Drug Use: Marijuana General Adult EDM: Chief Complaint: EARACHE/EAR PAIN HPI: HPI: Patient is a 60 year old female who presents with a 4-day history of bilateral ear pain. Patient states she has had discharge and pain and ringing in her ears with hearing loss over the last 4 days. Patient denies any inciting events. Patient has a mild associated headache. Symptoms are worse with palpation of her ears. Pain is described as throbbing. Patient denies any fevers chills cough or shortness of breath. No chest pain. Review of Systems: Review of Systems: Constitutional: Denies fever or chills. [] Eyes: Denies change in visual acuity. [] HENT: Denies nasal congestion or sore throat. Complains of ear pain with discharge and ringing in ears and hearing loss. Respiratory: Denies cough or shortness of breath. [] Cardiovascular: Denies chest pain or edema. [] GI: Denies abdominal pain or diarrhea. : Denies dysuria. [] Musculoskeletal: Denies back pain or joint pain. [] Integument: Denies rash. [] Neurologic: Has a mild headache but no focal weakness or sensory changes. [] Endocrine: Denies polyuria or polydipsia. [] Lymphatic: Denies swollen glands. [] Psychiatric: Denies depression or anxiety. [] Heart Score: Risk Factors: Risk Factors: DM, Current or recent (<one month) smoker, HTN, HLP, family history of CAD, obesity. Risk Scores: Score 0 - 3: 2.5% MACE over next 6 weeks - Discharge Home Score 4 - 6: 20.3% MACE over next 6 weeks - Admit for Clinical Observation Score 7 - 10: 72.7% MACE over next 6 weeks - Early Invasive Strategies Allergies: Allergies: Allergies Coded Allergies Type Severity Reaction Last Updated Verified Penicillins Allergy Severe swelling 08/17/16 Yes ibuprofen Allergy Intermediate Rash 09/11/17 Yes Physical Exam: PE: Constitutional: Well developed, well nourished, no acute distress, non-toxic appearance. [] HENT: Normocephalic, atraumatic, bilateral swelling to the auricles and swelling to the ear canals. With purulent drainage. Unable to visualize the bilateral TMs. The mastoids appear normal without signs of mastoiditis. No trismus, nose normal. [] Eyes: PERRLA, EOMI, conjunctiva normal, no discharge. [] Neck: Normal range of motion, no tenderness, supple, no stridor. [] Cardiovascular:Heart rate regular rhythm, peripheral pulses intact, cap refill brisk Lungs & Thorax: Bilateral breath sounds clear, no respiratory distress Abdomen:, soft, no tenderness, no masses, no pulsatile masses. [] Skin: Warm, dry, no erythema, no rash. [] Back: No tenderness, no CVA tenderness. [] Extremities: No tenderness, no cyanosis, no clubbing, ROM intact, no edema. [] Neurologic: Alert and oriented X 3, normal motor function, normal sensory function, no focal deficits noted. [] Psychologic: Affect normal, judgement normal, mood normal. [] EKG: EKG: [] Radiology/Procedures: Radiology/Procedures: [] Course & Med Decision Making: Course & Med Decision Making Pertinent Labs and Imaging studies reviewed. (See chart for details) [] 60-year-old female presents with bilateral otitis externa. Due to the fact there is auricular involvement and I cannot see TMs I will place the patient on oral antibiotics as well. Patient has no evidence of mastoiditis. Does not appear to have malignant otitis externa at this point. Randall Disclaimer: Randall Disclaimer: This electronic medical record was generated, in whole or in part, using a voice recognition dictation system. Departure Departure Impression: Primary Impression: Bilateral otitis externa Disposition: 01 HOME, SELF-CARE Condition: STABLE Referrals: UNKNOWN PCP NAME (PCP) ent 2-3 days Patient Instructions: Otitis Externa Additional Instructions: EMERGENCY DEPARTMENT GENERAL DISCHARGE INSTRUCTIONS THANK YOU for coming to [facility] Emergency Department (ED) today and trusting us with your care. We trust that you had a positive experience in our Emergency Department. If you wish to speak to the department Management you can contact the supervisor denture department at . YOUR FOLLOW UP INSTRUCTIONS ARE FOLLOWS: Do you have a private doctor? If you do not have a private doctor, please ask for a resource list of physicians or clinics that may be able to assist you with follow up care. The Emergency Physician has interpreted your x-rays. The X-ray specialist will also review them. If there is a change in the findings you will be notified in 48 hours when at all possible. A lab test or lab culture may have been done, your results will be reviewed and you will be notified if you need a change in treatment. ADDITIONAL INSTRUCTIONS AND INFORMATION Your care today has been supervised by a physician who is specially trained in emergency care. Many problems require more than one evaluation for a complete diagnosis and treatment. We recommend that you schedule your follow up appointment as recommended to ensure complete treatment of your illness or injury. If you are unable to obtain follow up care and continue to have a problem, or if your condition worsens we recommend that you return to the ED. We are not able to safely determine your condition over the phone nor are we able to give sound medical advice over the phone. For these safety reasons, if you call for medical advice we will ask you to come to the ED for further evaluation If you have any questions regarding these discharge instructions please call the ED at . SAFETY INFORMATION In the interest of safety, wellness, and injury prevention; we encourage you to wear your seatbelt, if you smoke; quit smoking, and we encourage your family to use protective helmet for bicycling and other sporting events that present an increased risk for head injury. IF YOUR SYMPTOMS WORSEN OR NEW SYMPTOMS DEVELOP, OR YOU HAVE CONCERNS ABOUT YOUR CONDITION; OR IF YOUR CONDITION WORSENS WHILE YOU ARE WAITING FOR YOUR FOLLOW UP APPOINTMENT; EITHER CONTACT YOUR PRIMARY CARE DOCTOR, THE PHYSICIAN WHOSE NAME AND NUMBER YOU WERE GIVEN, OR RETURN TO THE ED IMMEDIATELY. Scripts Ciprofloxacin/Hydrocortisone (CIPRO HC OTIC SUSPENSION) 10 Ml Drops.susp 3 DROP BID, #10 ML Prov: ORLIN DURBIN MD 03/06/20 Doxycycline Monohydrate (DOXYCYCLINE MONOHYDRATE) 100 Mg Capsule 1 CAP PO BID, #20 CAP Prov: ORLIN DURBIN MD 03/06/20 Hydrocodone/Apap 5-325 (NORCO 5-325 TABLET) 1 Each Tablet 1-2 EACH PO PRN Q6HRS PRN for PAIN, #15 as needed for pain Prov: ORLIN DURBIN MD 03/06/20 Justicifation of Admission Dx: Justifications for Admission: Justification of Admission Dx: N/A ORLIN DURBIN MD Mar 06, 2020 09:14
== END 2020-03-06 09:46 | disposition home or self-care (01) ==
LOC: ER 08:38
DX: H60.8X3 Other otitis externa, bilateral (principal); R51 Headache; H91.93 Unspecified hearing loss, bilateral; F41.9 Anxiety disorder, unspecified; K21.9 Gastro-esophageal reflux disease without esophagitis; E78.00 Pure hypercholesterolemia, unspecified; I10 Essential (primary) hypertension; F12.90 Cannabis use, unspecified, uncomplicated; Z90.710 Acquired absence of both cervix and uterus; Z98.890 Other specified postprocedural states; Z88.0 Allergy status to penicillin; Z88.6 Allergy status to analgesic agent
CPT/HCPCS: 99283

== ENCOUNTER 2020-04-09 12:01 | Emergency (ER) | payer SELFPAY ==
[~2020-04-09] VITALS: Ht 167.6 cm; Wt 86.0 kg
[2020-04-09 12:01] VITALS: BP 158/91
[~2020-04-09 12:01] MED LIST changes: +CIPR10DR AS; +DOXY100C14 PO
[2020-04-09] MEDS ORDERED: GABA300C18 PO (12:54)
[2020-04-09] MEDS ORDERED: PRED50TA PO (12:54)
[2020-04-09] MEDS ORDERED: CYCL10TA2 PO (12:54)
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
== END 2020-04-09 13:00 | disposition home or self-care (01) ==
LOC: ER 12:01
DX: S13.9XXA Sprain of joints and ligaments of unspecified parts of neck, initial encounter (principal); M79.601 Pain in right arm; M79.602 Pain in left arm; M25.562 Pain in left knee; K21.9 Gastro-esophageal reflux disease without esophagitis; F41.9 Anxiety disorder, unspecified; E78.00 Pure hypercholesterolemia, unspecified; I10 Essential (primary) hypertension; Z90.710 Acquired absence of both cervix and uterus; Z88.0 Allergy status to penicillin; Z88.8 Allergy status to other drugs, medicaments and biological substances; V49.59XA Passenger injured in collision with other motor vehicles in traffic accident, initial encounter; Y92.488 Other paved roadways as the place of occurrence of the external cause; Y93.89 Activity, other specified; Y99.8 Other external cause status
CPT/HCPCS: 99283

== ENCOUNTER 2020-06-12 10:01 | Observation (INO) | payer OTHER ==
[~2020-06-12] VITALS: Ht 167.6 cm; Wt 86.1 kg
[~2020-06-12 10:01] MED LIST changes: +AMLO-187 PO; -AMLO10TA8 PO; +GABA300C18 PO; +PRED50TA PO
[2020-06-12 10:32] LABS: BASO # 0.1 x10^3/uL (0.0-0.2); BASO % 1 % (0-3); EOS # 0.1 x10^3/uL (0.0-0.7); EOS % 2 % (0-3); HEMATOCRIT 39.7 % (36.0-47.0); LYMPH # 2.5 x10^3/uL (1.0-4.8); LYMPH % 41 % (24-48); MEAN CORPUSCULAR HEMOGLOBIN 29 pg (25-35); MEAN CORPUSCULAR HGB CONC 33 g/dL (31-37); MEAN CORPUSCULAR VOLUME 90 fL (79-100); MONO # 0.4 x10^3/uL (0.0-1.1); MONO % 7 % (0-9); NEUT % 49 % (31-73); PLATELET COUNT 288 x10^3/uL (140-400); RED BLOOD COUNT 4.44 x10^6/uL (3.50-5.40); RED CELL DISTRIBUTION WIDTH 14.5 % (11.5-14.5); WHITE BLOOD COUNT 6.1 x10^3/uL (4.0-11.0)
--- NOTE | 2020-06-12 10:34 | RAD ---
Examination: PORTABLE CHEST 1V History: Reason: chest pain / Comparison/Correlation: 02/02/2020 chest x-ray exam Findings: Portable upright frontal view chest was obtained. Heart size is normal. Interstitial tearing of the lung castillo is similar to the previous exam. No focal consolidation. No pneumothorax or pleural effusion. Bony structures are unremarkable for the patient's age. Impression: No focal infiltrate. Nonspecific interstitial thickening of the lung castillo is similar to prior exam. Electronically signed by: Mohit Self MD (06/12/2020 10:30 AM) [id number]
--- NOTE | 2020-06-12 10:40 | PHYS DOC ---
Past Medical History Past Medical History: Anxiety, GERD, High Cholesterol, Hypertension Additional Past Medical Histor: gastritis Past Surgical History: Hysterectomy Additional Past Surgical Histo: Endoscopy Smoking Status: Never Smoker Additional Information: Smoke marijuana Alcohol Use: None Drug Use: Marijuana General Adult EDM: Chief Complaint: CHEST PAIN HPI: HPI: Patient is a 60 year old female who presents to ER for evaluation of left sided chest pain that radiated to her left shoulder and left forearm started around 7 AM this morning. Patient said the pain on chest had disappeared but she still have some pain in her left arm. Patient denies any nausea vomiting, no cough, no fever, no trouble breathing. Patient has no family history of heart disease, no family history of blood clot disorder, no recent travel or operation. Patient do have a history of hypertension and high cholesterol, she smoked marijuana sometimes. Patient denies any history of diabetic. Review of Systems: Review of Systems: Constitutional: Denies fever or chills. [] Eyes: Denies change in visual acuity. [] HENT: Denies nasal congestion or sore throat. [] Respiratory: Denies cough or shortness of breath. [] Cardiovascular: Positive for chest pain, no edema GI: Denies abdominal pain, nausea, vomiting, bloody stools or diarrhea. [] : Denies dysuria. [] Musculoskeletal: Denies back pain or joint pain. [] Integument: Denies rash. [] Neurologic: Denies headache, focal weakness or sensory changes. [] Endocrine: Denies polyuria or polydipsia. [] Lymphatic: Denies swollen glands. [] Psychiatric: Denies depression or anxiety. [] Heart Score: HEART Score for Chest Pain: HEART Score for Chest Pain Response (Comments) Value History Moderately Suspicious 1 ECG Normal 0 Age >45 - < 65 1 Risk Factors 1 or 2 Risk Factors 1 Troponin < Normal Limit 0 Total 3 Risk Factors: Risk Factors: DM, Current or recent (<one month) smoker, HTN, HLP, family history of CAD, obesity. Risk Scores: Score 0 - 3: 2.5% MACE over next 6 weeks - Discharge Home Score 4 - 6: 20.3% MACE over next 6 weeks - Admit for Clinical Observation Score 7 - 10: 72.7% MACE over next 6 weeks - Early Invasive Strategies Allergies: Allergies: Allergies Coded Allergies Type Severity Reaction Last Updated Verified Penicillins Allergy Severe swelling 08/17/16 Yes ibuprofen Allergy Intermediate Rash 09/11/17 Yes Physical Exam: PE: Constitutional: Well developed, well nourished, no acute distress, non-toxic appearance. [] HENT: Normocephalic, atraumatic, bilateral external ears normal, oropharynx moist, no oral exudates, nose normal. [] Eyes: PERRLA, EOMI, conjunctiva normal, no discharge. [] Neck: Normal range of motion, no tenderness, supple, no stridor. [] Cardiovascular:Heart rate regular rhythm, no murmur [] Lungs & Thorax: Bilateral breath sounds clear to auscultation [] Abdomen: Bowel sounds normal, soft, no tenderness, no masses, no pulsatile masses. [] Skin: Warm, dry, no erythema, no rash. [] Back: No tenderness, no CVA tenderness. [] Extremities: No tenderness, no cyanosis, no clubbing, ROM intact, no edema. [] Neurologic: Alert and oriented X 3, normal motor function, normal sensory function, no focal deficits noted. [] Psychologic: Affect normal, judgement normal, mood normal. [] Current Patient Data: Labs: Laboratory Tests Test 06/12/20 10:20 06/12/20 11:34 White Blood Count 6.1 x10^3/uL Red Blood Count 4.44 x10^6/uL Hemoglobin 13.0 g/dL Hematocrit 39.7 % Mean Corpuscular Volume 90 fL Mean Corpuscular Hemoglobin 29 pg Mean Corpuscular Hemoglobin Concent 33 g/dL Red Cell Distribution Width 14.5 % Platelet Count 288 x10^3/uL Neutrophils (%) (Auto) 49 % Lymphocytes (%) (Auto) 41 % Monocytes (%) (Auto) 7 % Eosinophils (%) (Auto) 2 % Basophils (%) (Auto) 1 % Neutrophils # (Auto) 3.0 x10^3/uL Lymphocytes # (Auto) 2.5 x10^3/uL Monocytes # (Auto) 0.4 x10^3/uL Eosinophils # (Auto) 0.1 x10^3/uL Basophils # (Auto) 0.1 x10^3/uL Prothrombin Time 12.6 SEC Prothromb Time International Ratio 1.0 Activated Partial Thromboplast Time 29 SEC Sodium Level 139 mmol/L Potassium Level 3.7 mmol/L Chloride Level 101 mmol/L Carbon Dioxide Level 29 mmol/L Anion Gap 9 Blood Urea Nitrogen 14 mg/dL Creatinine 0.7 mg/dL Estimated GFR (Cockcroft-Gault) 103.3 BUN/Creatinine Ratio 20 Glucose Level 98 mg/dL Calcium Level 10.4 mg/dL Magnesium Level 2.0 mg/dL Total Bilirubin 0.3 mg/dL Aspartate Amino Transf (AST/SGOT) 16 U/L Alanine Aminotransferase (ALT/SGPT) 26 U/L Alkaline Phosphatase 84 U/L Troponin I Quantitative < 0.017 ng/mL CM-Fik-K-Type Natriuretic Peptide 17 pg/mL Total Protein 7.8 g/dL Albumin 4.0 g/dL Albumin/Globulin Ratio 1.1 Lipase 83 U/L Urine Collection Type Void Urine Color Yellow Urine Clarity Clear Urine pH 7.5 Urine Specific [place] 1.020 Urine Protein Negative mg/dL Urine Glucose (UA) Negative mg/dL Urine Ketones (Stick) Negative mg/dL Urine Blood Negative Urine Nitrite Negative Urine Bilirubin Negative Urine Urobilinogen Dipstick 0.2 mg/dL Urine Leukocyte Esterase Negative Urine RBC 0 /HPF Urine WBC 1-4 /HPF Urine Squamous Epithelial Cells Few /LPF Urine Bacteria Few /HPF Vital Signs: Vital Signs Date Time Temp Pulse Resp B/P (MAP) Pulse Ox O2 Delivery O2 Flow Rate FiO2 06/12/20 10:07 98.7 92 18 153/103 (120) 99 Room Air 98.7 EKG: EKG: EKG was done at 1009, heart rate of 81 bpm, normal sinus rhythm, no ST segment elevation. Radiology/Procedures: Radiology/Procedures: [][facility] [address] [place] [address] IMAGING REPORT Signed PATIENT: NORMA VILLA ACCOUNT: [id number] : 1960 LOCATION: ER AGE: 60 SEX: F EXAM STATUS: PRE ER ORD. PHYSICIAN: INDIA RONDON DO REASON: chest pain PROCEDURE: PORTABLE CHEST 1V Examination: PORTABLE CHEST 1V History: Reason: chest pain / Comparison/Correlation: 02/02/2020 chest x-ray exam Findings: Portable upright frontal view chest was obtained. Heart size is normal. Interstitial tearing of the lung castillo is similar to the previous exam. No focal consolidation. No pneumothorax or pleural effusion. Bony structures are unremarkable for the patient's age. Impression: No focal infiltrate. Nonspecific interstitial thickening of the lung castilol is similar to prior exam. Electronically signed by: Mohit Hendrix MD (06/12/2020 10:30 AM) [id number] DICTATED and SIGNED BY: MOHIT HENDRIX MD DATE: 06/12/20 103 Course & Med Decision Making: Course & Med Decision Making Pertinent Labs and Imaging studies reviewed. (See chart for details) Patient is a 60-year-old female who presented to ER with left-sided chest pain that radiated to her left arm and shoulder. EKG and enzymes normal so far, with her risk factor we will admit her to the hospital for observation. Randall Disclaimer: Dragamanda Disclaimer: This electronic medical record was generated, in whole or in part, using a voice recognition dictation system. Departure Departure Impression: Primary Impression: Chest pain Additional Impression: HTN (hypertension) Disposition: 09 ADMITTED INPT THIS HOSP Admitting Physician: BO (DR. SEE) Condition: STABLE Referrals: UNKNOWN PCP NAME (PCP) INDIA RONDON DO Jun 12, 2020 10:40
[2020-06-12 10:44] LABS: PROTHROMBIN TIME PATIENT 12.6 SEC (11.7-14.0)
[2020-06-12 10:47] LABS: CALCIUM 10.4 mg/dL (8.5-10.1); CREATININE 0.7 mg/dL (0.6-1.0); GFR 103.3; POTASSIUM 3.7 mmol/L (3.5-5.1)
[2020-06-12 10:50] LABS: ALBUMIN/GLOBULIN RATIO 1.1 (1.0-1.7); TOTAL BILIRUBIN 0.3 mg/dL (0.2-1.0); TOTAL PROTEIN 7.8 g/dL (6.4-8.2)
[2020-06-12 11:46] LABS: BILIRUBIN,URINE NEGATIVE (NEG); CLARITY,URINE CLEAR; COLOR,URINE YELLOW; NITRITE,URINE NEGATIVE (NEG); PH,URINE 7.5 (<5.0-8.0); PROTEIN,URINE NEGATIVE (NEG-TRACE); UROBILINOGEN,URINE 0.2 mg/dL (0.2 mg/dL)
[2020-06-12 11:56] LABS: BACTERIA,URINE FEW /HPF (0-FEW); RBC,URINE 0 /HPF (0-2)
[2020-06-12] MEDS ORDERED: ONDANSETRON PF 4 MG/2 ML VIAL. IV PRN (12:45)
--- NOTE | 2020-06-12 14:12 | EKG ---
[facility] [address] [place] [address] Test Date: 2020-06-12 Test Time: 10:09:04 Pat Name: NORMA VILLA Department: Room: Gender: F [employer] Teacher: AISHA ER : 1960 Requested By: INDIA RONDON Order Number: [id number] Reading MD: Measurements Intervals [place] Rate: 81 P: 67 WA: 158 QRS: 1 QRSD: 80 T: 30 QT: 366 QTc: 426 Interpretive Statements SINUS RHYTHM NORMAL ECG RI6.02 No previous ECG available for comparison
[2020-06-12] MEDS ORDERED: MAG HYDROX/ALUMINUM HYD/SIMETH 30 ML ORAL.SUSP PO PRN (14:15)
[2020-06-12] MEDS ORDERED: MORPHINE SULFATE 2 MG/ML VIAL. IV PRN ×2 (14:15)
[2020-06-12] MEDS ORDERED: ZOLPIDEM 5 MG TABLET. PO PRN (14:15)
[2020-06-12] MEDS ORDERED: ONDANSETRON PF 4 MG/2 ML VIAL. IVP PRN (14:15)
[2020-06-12] MEDS ORDERED: POLYETHYLENE GLYCOL 3350 17 GM PACKET. PO PRN (14:15)
[2020-06-12] MEDS ORDERED: PROCHLORPERAZINE 10 MG/2 ML VIAL. IVP PRN (14:15)
[2020-06-12] MEDS ORDERED: CYCLOBENZAPRINE 10 MG TABLET. PO PRN (14:15)
[2020-06-12] MEDS ORDERED: HYDROcodone/APAP 5/325MG 1 TAB TABLET PO PRN (14:15)
[2020-06-12] MEDS ORDERED: MAGNESIUM HYDROXIDE 2,400 MG/30 ML ORAL.SUSP. PO PRN (14:15)
[2020-06-12] MEDS ORDERED: ACETAMINOPHEN 325 MG TABLET. PO PRN (14:15)
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
[2020-06-12] MEDS: LOSARTAN POTASSIUM 50 MG TABLET. PO SCH (15:00)
[2020-06-12 15:03] VITALS: BP 153/102
[2020-06-12] MEDS: GABAPENTIN 300 MG CAPSULE. PO SCH ×2 (15:19→21:15)
[2020-06-12] MEDS: PANTOPRAZOLE 40 MG TABLET.DR. PO SCH (15:21)
[2020-06-12 19:00] VITALS: BP 120/76
[2020-06-12] MEDS ORDERED: ATORVASTATIN CALCIUM 20 MG TABLET PO SCH (21:00)
[2020-06-12] MEDS: FAMOTIDINE 20 MG TABLET. PO SCH (21:15)
[2020-06-12 22:58] VITALS: BP 125/75
[2020-06-13 02:55] VITALS: BP 132/83
[2020-06-13 07:00] VITALS: BP 146/89
[2020-06-13] MEDS: PANTOPRAZOLE 40 MG TABLET.DR. PO SCH (07:30)
[2020-06-13] MEDS: LOSARTAN POTASSIUM 50 MG TABLET. PO SCH (09:00)
[2020-06-13] MEDS: GABAPENTIN 300 MG CAPSULE. PO SCH ×2 (09:00→14:00)
[2020-06-13] MEDS: FAMOTIDINE 20 MG TABLET. PO SCH (09:00)
[2020-06-13 10:38] VITALS: BP 146/86
--- NOTE | 2020-06-13 13:46 | CARD ---
MR#: [id number] Date of Study: 06/13/2020 Ordering Physician: VANCE SEE, Referring Physician: VANCE SEE, Tech: Delia Ferguson APPROVED REPORT EXAM: Two-dimensional and M-mode echocardiogram with Doppler and color Doppler. Other Information Quality : AverageHR: 75bpm INDICATION Cardiomyopathy Takotsubo Cardiomyopathy 2D DIMENSIONS RVDd2.7 (2.9-3.5cm)Left Atrium(2D)2.3 (1.6-4.0cm) IVSd0.9 (0.7-1.1cm)Aortic Root(2D)3.2 (2.0-3.7cm) LVDd4.7 (3.9-5.9cm)LVOT Diameter2.1 (1.8-2.4cm) PWd1.0 (0.7-1.1cm)LVDs3.1 (2.5-4.0cm) FS (%) 35.2 %SV66.4 ml LVEF(%)64.5 (>50%) Aortic Valve AoV Peak Leland.157.8cm/sAoV VTI23.8cm AO Peak GR.10.0mmHgLVOT Peak Leland.114.6cm/s LVOT VTI 20.47cmAO Mean GR.5mmHg MARILYNN (VMAX)1.94cc6REL (VTI)2.98cm2 Mitral Valve MV E Ghotggnd41.7cm/sMV DECEL [id number] MV A Jvlbfzfz19.5cm/sMV E Mean Gr.2mmHg MV TQT810xyZ/A Ratio0.7 MVA (PHT)1.71cm2 TDI E/Lateral E'5.7E/Medial E'6.4 Pulmonary Valve PV Peak Yqyxgdfy201.7cm/sPV Peak Grad.4mmHg Tricuspid Valve TR P. Wybcanxi045rp/sRAP RXSOHPCT1lzYj TR Peak Gr.30zxDjWHCU07jmGg Pulmonary Vein S1 Iqdwkpcf49.1cm/sD2 Lhtadevr67.7cm/s PVa qqxzmoig368ragv LEFT VENTRICLE The left ventricle is normal size. There is normal left ventricular wall thickness. The left ventricu lar systolic function is normal. The Ejection Fraction is 60%. There is normal LV segmental wall jose martin on. Transmitral Doppler flow pattern is Grade I-abnormal relaxation pattern. RIGHT VENTRICLE The right ventricle is normal size. There is normal right ventricular wall thickness. The right ventr icular systolic function is normal. ATRIA The left atrium size is normal. The right atrium size is normal. The interatrial septum is intact wit h no evidence for an atrial septal defect or patent foramen ovale as noted on 2-D or Doppler imaging. AORTIC VALVE The aortic valve is thickened but opens well. Doppler and Color Flow revealed no significant aortic r egurgitation. There is no significant aortic valvular stenosis. Calculated aortic valve area is 2.86 cm2 with maximum pressure gradient of 11 mmHg and mean pressure gradient of 6 mmHg. MITRAL VALVE The mitral valve is normal in structure and function. There is no evidence of mitral valve prolapse. There is no mitral valve stenosis. Doppler and Color Flow revealed no mitral valve regurgitation note d. TRICUSPID VALVE The tricuspid valve is normal in structure and function. Doppler and Color Flow revealed trace tricus pid regurgitation with an estimated PAP of 25 mmHg. There is no tricuspid valve stenosis. PULMONIC VALVE The pulmonic valve is not well visualized. Doppler and Color Flow revealed trace pulmonic valvular re gurgitation. GREAT VESSELS The aortic root is normal in size. The IVC is normal in size and collapses >50% with inspiration. PERICARDIAL EFFUSION There is no evidence of significant pericardial effusion. Critical Notification Critical Value: No <Conclusion> The left ventricular systolic function is normal. The Ejection Fraction is 60%. There is normal LV segmental wall motion. Transmitral Doppler flow pattern is Grade I-abnormal relaxation pattern. Trace tricuspid regurgitation with an estimated PAP of 25 mmHg. There is no evidence of significant pericardial effusion. Signed by : Gino Lorenz, Electronically Approved : 06/13/2020 13:45:39
--- NOTE | 2020-06-13 14:01 | NUR ---
SS following for discharge planning. SS reviewed pt chart and discussed with pt RN. Pt is from home with spouse and is currently on room air. Pt had ECHO today. SS will continue to follow for discharge planning.
--- NOTE | 2020-06-13 14:27 | DISCH ---
DISCHARGE INSTRUCTIONS Condition on Discharge Condition on Discharge: Stable Activity After Discharge Activity Instructions for Disc: Activity as tolerated Exercise Instruction after Dis: Progress as tolerated Driving Instructions after Dis: Do not drive Weight Bearing Status after Di: Non weight bearing Diet after Discharge Diet after Discharge: Cardiac Diet Texture: Regular Liquid Texture: Thin Liquid Swallowing Supervision: None needed Checks after Discharge Checks after discharge: Check blood press - daily, Check your Temp as needed, Weigh Yourself Daily Contacting the DR. after DC Call your doctor for: If your condition worsens Follow-Up Follow up with: PCP within 1 week of discharge Follow Up With: Cardiology to complete your evaluation for chest pain Treatment/Equipment after DC Adaptive Equipment Issued: None DMITRI BORJA MD Jun 13, 2020 14:27
[2020-06-13 14:50] VITALS: BP 140/89
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
--- NOTE | 2020-06-13 17:53 | NUR ---
Discharge Note: NORMA VILLA Discharge instructions and discharge home medications reviewed with Patient and a copy given. All questions have been answered and understanding verbalized.
== END 2020-06-13 16:25 | disposition home or self-care (01) ==
LOC: ER 10:01 → 2 NORTH 12:40
PROVIDERS: ADMIT Family Medicine; ATTEND Family Medicine
DX: I20.0 Unstable angina (principal); I10 Essential (primary) hypertension; E78.5 Hyperlipidemia, unspecified; E78.00 Pure hypercholesterolemia, unspecified; K21.9 Gastro-esophageal reflux disease without esophagitis; F41.9 Anxiety disorder, unspecified; F12.90 Cannabis use, unspecified, uncomplicated; Z90.710 Acquired absence of both cervix and uterus; Z79.82 Long term (current) use of aspirin
CPT/HCPCS: 36415; 71045; 80053; 81001; 83690; 83735; 83880; 84484; 85025; 85610; 85730; 93005; 93306; 99285; G0378; G0379

== ENCOUNTER 2020-07-12 12:44 | Emergency (ER) | payer OTHER ==
[~2020-07-12] VITALS: Ht 167.6 cm; Wt 85.9 kg
[2020-07-12] MEDS ORDERED: LIDO:MAALOX 1:1 20 ML SINGLE DOSE. PO ONE (13:45)
[2020-07-12] MEDS ORDERED: PANT20TA2 PO (13:50)
--- NOTE | 2020-07-12 13:50 | PHYS DOC ---
Past Medical History Past Medical History: Anxiety, GERD, High Cholesterol, Hypertension Additional Past Medical Histor: gastritis Past Surgical History: Hysterectomy Additional Past Surgical Histo: Endoscopy Smoking Status: Former Smoker Alcohol Use: None Drug Use: Marijuana General Adult EDM: Chief Complaint: HEARTBURN/GI DISTRESS HPI: HPI: Patient is a 60 year old [f__sex] who presents with [] Review of Systems: Review of Systems: Constitutional: Denies fever or chills. [] Eyes: Denies change in visual acuity. [] HENT: Denies nasal congestion or sore throat. [] Respiratory: Denies cough or shortness of breath. [] Cardiovascular: Denies chest pain or edema. [] GI: Denies abdominal pain, nausea, vomiting, bloody stools or diarrhea. [] : Denies dysuria. [] Musculoskeletal: Denies back pain or joint pain. [] Integument: Denies rash. [] Neurologic: Denies headache, focal weakness or sensory changes. [] Endocrine: Denies polyuria or polydipsia. [] Lymphatic: Denies swollen glands. [] Psychiatric: Denies depression or anxiety. [] Heart Score: Risk Factors: Risk Factors: DM, Current or recent (<one month) smoker, HTN, HLP, family history of CAD, obesity. Risk Scores: Score 0 - 3: 2.5% MACE over next 6 weeks - Discharge Home Score 4 - 6: 20.3% MACE over next 6 weeks - Admit for Clinical Observation Score 7 - 10: 72.7% MACE over next 6 weeks - Early Invasive Strategies Current Medications: Current Medications Medications (Trade) Dose Ordered Sig/Gayatri Start Time Stop Time Status Last Admin Dose Admin Multi-Ingredient Mouthwash/Gargle (Gi Cocktail) 20 ml 1X ONCE 07/12/20 13:45 07/12/20 13:46 DC Allergies: Allergies: Allergies Coded Allergies Type Severity Reaction Last Updated Verified Penicillins Allergy Severe swelling 08/17/16 Yes ibuprofen Allergy Intermediate Rash 09/11/17 Yes Physical Exam: PE: Constitutional: Well developed, well nourished, no acute distress, non-toxic appearance. [] HENT: Normocephalic, atraumatic, bilateral external ears normal, oropharynx moist, no oral exudates, nose normal. [] Eyes: PERRLA, EOMI, conjunctiva normal, no discharge. [] Neck: Normal range of motion, no tenderness, supple, no stridor. [] Cardiovascular:Heart rate regular rhythm, no murmur [] Lungs & Thorax: Bilateral breath sounds clear to auscultation [] Abdomen: Bowel sounds normal, soft, no tenderness, no masses, no pulsatile masses. [] Skin: Warm, dry, no erythema, no rash. [] Back: No tenderness, no CVA tenderness. [] Extremities: No tenderness, no cyanosis, no clubbing, ROM intact, no edema. [] Neurologic: Alert and oriented X 3, normal motor function, normal sensory function, no focal deficits noted. [] Psychologic: Affect normal, judgement normal, mood normal. [] Current Patient Data: Vital Signs: Vital Signs Date Time Temp Pulse Resp B/P (MAP) Pulse Ox O2 Delivery O2 Flow Rate FiO2 07/12/20 13:21 98.0 62 20 133/85 (101) 100 Room Air 98.0 EKG: EKG: @1358 NSR at 60bpm, NO ST elevation, QRS 82ms, QT/QTc 424/428ms, t wave inversion I and aVL Radiology/Procedures: Radiology/Procedures: [] Course & Med Decision Making: Course & Med Decision Making Pertinent Labs and Imaging studies reviewed. (See chart for details) [] Dragon Disclaimer: Dragon Disclaimer: This electronic medical record was generated, in whole or in part, using a voice recognition dictation system. Departure Departure Impression: Primary Impression: Gastritis Qualified Codes: K29.50 - Unspecified chronic gastritis without bleeding Disposition: 01 DC HOME SELF CARE/HOMELESS Condition: STABLE Referrals: UNKNOWN PCP NAME (PCP) ORLIN CONN MD Patient Instructions: Gastritis, Adult, [id number] Scripts Pantoprazole Sodium (PROTONIX) 20 Mg Tablet. 1 TAB PO DAILY, #30 TAB Prov: GLENDY LI DO 07/12/20 GLENDY LI DO Jul 12, 2020 13:50
--- NOTE | 2020-07-12 14:22 | EKG ---
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
[2020-07-12 14:25] VITALS: BP 137/79
== END 2020-07-12 14:30 | disposition home or self-care (01) ==
LOC: ER 12:44
DX: K29.50 Unspecified chronic gastritis without bleeding (principal); K21.9 Gastro-esophageal reflux disease without esophagitis; E78.00 Pure hypercholesterolemia, unspecified; I10 Essential (primary) hypertension; F41.9 Anxiety disorder, unspecified; Z87.891 Personal history of nicotine dependence; Z88.0 Allergy status to penicillin; Z88.8 Allergy status to other drugs, medicaments and biological substances
CPT/HCPCS: 93005; 99283

== ENCOUNTER 2020-07-31 11:21 | Emergency (ER) | payer OTHER ==
[~2020-07-31] VITALS: Ht 167.6 cm; Wt 82.0 kg
[~2020-07-31 11:21] MED LIST changes: +DOXY-181 PO; -DOXY100C14 PO; -OMEP40CA45 PO; +OMEP40CA7 PO
[2020-07-31 12:18] LABS: BILIRUBIN,URINE SMALL (NEG); CLARITY,URINE CLEAR; COLOR,URINE YELLOW; NITRITE,URINE NEGATIVE (NEG); PROTEIN,URINE NEGATIVE (NEG-TRACE)
[2020-07-31 12:35] LABS: BACTERIA,URINE FEW /HPF (0-FEW); RBC,URINE 0 /HPF (0-2); WBC,URINE RARE /HPF (0-4)
[2020-07-31 16:03] VITALS: BP 149/88
[2020-07-31] MEDS ORDERED: CYCL10TA2 PO (16:37)
--- NOTE | 2020-07-31 16:39 | ED.ADGEN ---
Past Medical History Past Medical History: Anxiety, GERD, High Cholesterol, Hypertension Additional Past Medical Histor: gastritis Past Surgical History: Hysterectomy Additional Past Surgical Histo: Endoscopy Smoking Status: Former Smoker Alcohol Use: Occasionally Drug Use: Marijuana General Adult EDM: Chief Complaint: PAIN ON URINATION HPI: HPI: Patient is a 60 year old AA female who presents emergency department with complaints of pain in her right flank since moving some heavy dining room furniture by herself on July 21, 2020. Patient reports that she thinks she might of strained something, but then she began to notice she was urinating more frequently and feeling like she is not emptying her bladder completely over the last several days, so she thought she might have a UTI. She denies any dysuria, hematuria, incontinence, back pain, fever, cough, nausea, vomiting, diarrhea, shortness of breath, chest pain, or palpitations. She denies any pain unless her right lower ribs are touched. She denies any recent fall or trauma. Review of Systems: Review of Systems: Complete ROS is negative unless otherwise noted in HPI. Allergies: Allergies: Allergies Coded Allergies Type Severity Reaction Last Updated Verified Penicillins Allergy Severe swelling 08/17/16 Yes ibuprofen Allergy Intermediate Rash 09/11/17 Yes Physical Exam: PE: See Above Constitutional: Well developed, well nourished, no acute distress, non-toxic appearance. [] HENT: Normocephalic, atraumatic, bilateral external ears normal, nose normal. [] Eyes: PERRLA, EOMI, conjunctiva normal, no discharge. [] Neck: Normal range of motion, no stridor. [] Cardiovascular:Heart rate regular rhythm Lungs & Thorax: Respirations even and unlabored, no retractions, no respiratory distress Abdomen: soft, no tenderness, no rebound tenderness, no guarding Musculoskeletal; right flank tenderness to palpation, no bony tenderness, no c repitus Back: No CVA tenderness Skin: Warm, dry, no erythema, no rash. [] Extremities: No cyanosis, ROM intact, no edema. [] Neurologic: Alert and oriented X 3, no focal deficits noted. [] Psychologic: Affect normal, judgement normal, mood normal. [] Current Patient Data: Labs: Laboratory Tests Test 07/31/20 12:00 Urine Collection Type Unknown Urine Color Yellow Urine Clarity Clear Urine pH 6.0 (<5.0-8.0) Urine Specific [place] 1.025 (1.000-1.030) Urine Protein Negative mg/dL (NEG-TRACE) Urine Glucose (UA) Negative mg/dL (NEG) Urine Ketones (Stick) Negative mg/dL (NEG) Urine Blood Negative (NEG) Urine Nitrite Negative (NEG) Urine Bilirubin Small (NEG) Urine Urobilinogen Dipstick 1.0 mg/dL (0.2 mg/dL) Urine Leukocyte Esterase Negative (NEG) Urine RBC 0 /HPF (0-2) Urine WBC Rare /HPF (0-4) Urine Squamous Epithelial Cells Many /LPF Urine Bacteria Few /HPF (0-FEW) Urine Mucus Marked /LPF Vital Signs: Vital Signs Date Time Temp Pulse Resp B/P (MAP) Pulse Ox O2 Delivery O2 Flow Rate FiO2 07/31/20 16:03 98.4 70 18 149/88 (108) 98 Room Air 98.4 EKG: EKG: [] Heart Score: Risk Factors: Risk Factors: DM, Current or recent (<one month) smoker, HTN, HLP, family history of CAD, obesity. Risk Scores: Score 0 - 3: 2.5% MACE over next 6 weeks - Discharge Home Score 4 - 6: 20.3% MACE over next 6 weeks - Admit for Clinical Observation Score 7 - 10: 72.7% MACE over next 6 weeks - Early Invasive Strategies Radiology/Procedures: Radiology/Procedures: [] Course & Med Decision Making: Course & Med Decision Making Pertinent Labs and Imaging studies reviewed. (See chart for details) 60-year-old female presented to the emergency department with complaints of right flank pain for over a week. UA is not concerning for urinary tract infection. Post void bladder scan revealed complete emptying of bladder. Prescription written for Flexeril, recommend application of heat or ice whichever felt better and Tylenol as needed for pain recommend follow-up with primary care doctor this week if symptoms persist, return to the ER if symptoms worsen or fever develops. Patient verbalized an understanding of home care, medications, follow-up, and return to ED instructions and was in agreement with the plan of care. [] Dragon Disclaimer: Dragon Disclaimer: This electronic medical record was generated, in whole or in part, using a voice recognition dictation system. Departure Departure Impression: Primary Impression: Strain of thoracic paraspinal muscles excluding T1 and T2 levels Disposition: 01 HOME SELF CARE/HOMELESS Condition: STABLE Referrals: UNKNOWN PCP NAME (PCP) Patient Instructions: Muscle Strain, [id number] Additional Instructions: Fill the prescription(s) and use as directed. Take Tylenol as needed for pain. Apply heat or ice for to sore areas as needed for comfort. Activity as t olerated. Follow up with your primary care doctor this week if symptoms persist, return to the ER if symptoms worsen. Scripts Cyclobenzaprine Hcl (CYCLOBENZAPRINE HCL) 10 Mg Tablet 1 TAB PO TID PRN for MUSCLE PAIN for 10 Days, #30 TAB 0 Refills Prov: FABY LYNCH APRN 07/31/20 Problem Qualifiers Primary Impression: Strain of thoracic paraspinal muscles excluding T1 and T2 levels Encounter type: initial encounter Qualified Codes: S29.012A - Strain of muscle and tendon of back wall of thorax, initial encounter FABY LYNCH APRN Jul 31, 2020 16:38
== END 2020-07-31 16:51 | disposition home or self-care (01) ==
LOC: ER 11:21
DX: S29.011A Strain of muscle and tendon of front wall of thorax, initial encounter (principal); R30.9 Painful micturition, unspecified; F41.9 Anxiety disorder, unspecified; K21.9 Gastro-esophageal reflux disease without esophagitis; E78.00 Pure hypercholesterolemia, unspecified; F12.90 Cannabis use, unspecified, uncomplicated; Z87.891 Personal history of nicotine dependence; Z90.710 Acquired absence of both cervix and uterus; Z98.890 Other specified postprocedural states; X58.XXXA Exposure to other specified factors, initial encounter; Y93.9 Activity, unspecified; Y92.89 Other specified places as the place of occurrence of the external cause; Y99.8 Other external cause status
CPT/HCPCS: 81001; 99284

== ENCOUNTER 2020-12-13 13:10 | Emergency (ER) | payer OTHER, BC ==
[~2020-12-13] VITALS: Ht 167.6 cm; Wt 85.0 kg
[~2020-12-13 13:10] MED LIST changes: -DOXY-181 PO; +DOXY100C14 PO; +OMEP40CA45 PO; -OMEP40CA7 PO
--- NOTE | 2020-12-13 15:46 | PHYS DOC ---
Past Medical History Past Medical History: Anxiety, GERD, Hypertension Additional Past Medical Histor: gastritis Past Surgical History: Hysterectomy Additional Past Surgical Histo: Endoscopy Smoking Status: Never Smoker Alcohol Use: None Drug Use: Marijuana General Adult EDM: Chief Complaint: OTHER COMPLAINTS HPI: HPI: Patient is a 60 year old female who presented to ER for evaluation of dizziness episode today. Patient was at work, patient was eating some pork skin, then she feel 1 episode of dizziness. Patient then proceeded to eat some pizza, then felt much better. She denies any weakness or numbness, no blurry vision, no headache, no chest pain patient denies any trouble breathing. Patient said his boss told to come to ER for evaluation be sure before she can come back to work. Patient denies any dizziness or any symptoms at this time. Review of Systems: Review of Systems: Constitutional: Denies fever or chills. [] Eyes: Denies change in visual acuity. [] HENT: Denies nasal congestion or sore throat. [] Respiratory: Denies cough or shortness of breath. [] Cardiovascular: Denies chest pain or edema. [] GI: Denies abdominal pain, nausea, vomiting, bloody stools or diarrhea. [] : Denies dysuria. [] Musculoskeletal: Denies back pain or joint pain. [] Integument: Denies rash. [] Neurologic: Denies headache, focal weakness or sensory changes. [] Endocrine: Denies polyuria or polydipsia. [] Lymphatic: Denies swollen glands. [] Psychiatric: Denies depression or anxiety. [] Heart Score: C/O Chest Pain: N/A Risk Factors: Risk Factors: DM, Current or recent (<one month) smoker, HTN, HLP, family history of CAD, obesity. Risk Scores: Score 0 - 3: 2.5% MACE over next 6 weeks - Discharge Home Score 4 - 6: 20.3% MACE over next 6 weeks - Admit for Clinical Observation Score 7 - 10: 72.7% MACE over next 6 weeks - Early Invasive Strategies Allergies: Allergies: Allergies Coded Allergies Type Severity Reaction Last Updated Verified Penicillins Allergy Severe swelling 08/17/16 Yes ibuprofen Allergy Intermediate Rash 09/11/17 Yes Physical Exam: PE: Constitutional: Well developed, well nourished, no acute distress, non-toxic appearance. [] HENT: Normocephalic, atraumatic, bilateral external ears normal, oropharynx moist, no oral exudates, nose normal. [] Eyes: PERRLA, EOMI, conjunctiva normal, no discharge. [] Neck: Normal range of motion, no tenderness, supple, no stridor. [] Cardiovascular:Heart rate regular rhythm, no murmur [] Lungs & Thorax: Bilateral breath sounds clear to auscultation [] Abdomen: Bowel sounds normal, soft, no tenderness, no masses, no pulsatile masses. [] Skin: Warm, dry, no erythema, no rash. [] Back: No tenderness, no CVA tenderness. [] Extremities: No tenderness, no cyanosis, no clubbing, ROM intact, no edema. [] Neurologic: Alert and oriented X 3, normal motor function, normal sensory function, no focal deficits noted. [] Psychologic: Affect normal, judgement normal, mood normal. [] Current Patient Data: Labs: Laboratory Tests Test 12/13/20 15:35 Glucose (Fingerstick) 121 mg/dL (70-99) H Vital Signs: Vital Signs Date Time Temp Pulse Resp B/P (MAP) Pulse Ox O2 Delivery O2 Flow Rate FiO2 12/13/20 13:52 98.1 66 12 137/89 (105) 98 Room Air 98.1 EKG: EKG: EKG was done at 3:40 PM, heart rate of 67 beats per minutes, sinus rhythm, no ST segment elevation. Normal axis. Radiology/Procedures: Radiology/Procedures: [] Course & Med Decision Making: Course & Med Decision Making Pertinent Labs and Imaging studies reviewed. (See chart for details) Patient is a 60-year-old female who presented to ER for evaluation of a brief dizziness episode while she was at work today. Patient felt much better after eating, denies any symptoms at this time. EKG was normal. Patient was discharged home in stable condition. No further work-up needed at this time. Randall Disclaimer: Randall Disclaimer: This electronic medical record was generated, in whole or in part, using a voice recognition dictation system. Departure Departure Impression: Primary Impression: Dizziness Disposition: HOME / SELF CARE / HOMELESS Condition: STABLE Referrals: UNKNOWN PCP NAME (PCP) Please follow up with [facility] this week. [address], [address] [place] [address] Phone number: [phone] Patient Instructions: Dizziness Additional Instructions: Thank you for visiting our Emergency Department. We appreciate you trusting us with your care. If any additional problems come up don't hesitate to return to visit us. Please follow up with your primary care provider so they can plan additional care if needed and know about the problem that you had. If symptoms worsen come back to the Emergency Department. Any concerning symptoms that start such as chest pain, shortness of air, weakness or numbness on one side of the body, running high fevers or any other concerning symptoms return to the ER. INDIA RONDON DO December 13, 2020 15:46
--- NOTE | 2020-12-13 15:47 | EKG ---
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
[2020-12-13 15:50] VITALS: BP 134/86
== END 2020-12-13 15:50 | disposition home or self-care (01) ==
LOC: ER 13:10
DX: R42 Dizziness and giddiness (principal); I10 Essential (primary) hypertension; K21.9 Gastro-esophageal reflux disease without esophagitis; Z88.0 Allergy status to penicillin; Z88.8 Allergy status to other drugs, medicaments and biological substances
CPT/HCPCS: 82962; 93005; 99283

== ENCOUNTER 2021-03-17 10:34 | Emergency (ER) | payer BC, OTHER ==
[~2021-03-17] VITALS: Ht 167.6 cm; Wt 83.0 kg
[~2021-03-17 10:34] MED LIST changes: +DOXY-181 PO; -DOXY100C14 PO; -OMEP40CA45 PO; +OMEP40CA7 PO
[2021-03-17] MEDS ORDERED: HYDROcodone/APAP 5/325MG 1 TAB TABLET PO ONE (11:30)
[2021-03-17 11:31] VITALS: BP 136/83
[2021-03-17] MEDS ORDERED: IBUPROFEN 200 MG TABLET. PO ONE (11:45)
[2021-03-17] MEDS ORDERED: LIDOCAINE 1%/EPI 1:100,000 20 ML VIAL. INJ ONE (13:30)
[2021-03-17] MEDS ORDERED: diphenhydrAMINE HCL 25 MG CAPSULE PO ONE (13:30)
--- NOTE | 2021-03-17 14:28 | PHYS DOC ---
Past Medical History Past Medical History: Anxiety, GERD, Hypertension Additional Past Medical Histor: gastritis Past Surgical History: Hysterectomy Additional Past Surgical Histo: Endoscopy Smoking Status: Former Smoker Alcohol Use: Occasionally Drug Use: Marijuana General Adult EDM: Chief Complaint: HEADACHE HPI: HPI: Patient is a 61 year old female presents emergency department with chief complaint of headache that started last night. Patient reports it was an 8 out of 10, at 630 this morning she took an Excedrin and a Benadryl, patient reports she left work at 9:15 AM because of her headache. Patient states she came to the emergency department here and her headache has now down to a 1 out of 10. Patient reports she needs a work excuse. Patient denies visual changes, syncopal episodes, chest pains, chest palpitations, recent fever or chills, chest or nasal congestion. Patient denies any other physical complaints or physical concerns. Patient reports receiving the [employer] Covid vaccine on October 19. Review of Systems: Review of Systems: 14 body systems of review of systems have been reviewed. See HPI for pertinent positives and negative responses, otherwise all other systems are negative, nonpertinent or noncontributory. Constitutional: Negative except as outlined in HPI above. Skin: Negative except as outlined in HPI above. Eyes: Negative except as outlined in HPI above. HENT: Negative except as outlined in HPI above. Respiratory: Negative except as outlined in HPI above. Cardiovascular: Negative except as outlined in HPI above. GI: Negative except as outlined in HPI above. : Negative except as outlined in HPI above. Musculoskeletal: Negative except as outlined in HPI above. Integument: Negative except as outlined in HPI above. Neurologic: Negative except as outlined in HPI above. Endocrine: Negative except as outlined in HPI above. Lymphatic: Negative except as outlined in HPI above. Psychiatric: Negative except as outlined in HPI above. Heart Score: C/O Chest Pain: No Risk Factors: Risk Factors: DM, Current or recent (<one month) smoker, HTN, HLP, family history of CAD, obesity. Risk Scores: Score 0 - 3: 2.5% MACE over next 6 weeks - Discharge Home Score 4 - 6: 20.3% MACE over next 6 weeks - Admit for Clinical Observation Score 7 - 10: 72.7% MACE over next 6 weeks - Early Invasive Strategies Current Medications: Current Medications Medications (Trade) Dose Ordered Sig/Gayatri Start Time Stop Time Status Last Admin Dose Admin Acetaminophen/ Hydrocodone Bitart (Lortab 5/325) 1 tab 1X ONCE 03/17/21 11:30 03/17/21 11:25 DC Diphenhydramine HCl (Benadryl) 50 mg 1X ONCE 03/17/21 13:30 03/17/21 13:31 DC 03/17/21 13:07 50 MG Ibuprofen (Motrin) 600 mg 1X ONCE 03/17/21 11:45 03/17/21 11:46 DC 03/17/21 12:03 600 MG Lidocaine/ Epinephrine (LIDOCAINE 1%-EPI 1:100,000 Multi-Dose) 20 ml 1X ONCE 03/17/21 13:30 03/17/21 13:31 DC 03/17/21 13:15 20 ML Allergies: Allergies: Allergies Coded Allergies Type Severity Reaction Last Updated Verified Penicillins Allergy Severe swelling 08/17/16 Yes Physical Exam: PE: Constitutional: Well developed, well nourished, no acute distress, non-toxic appearance. 61-year-old female in no apparent distress. HENT: Normocephalic, atraumatic. Eyes: Conjunctiva normal, no discharge. Neck: Normal range of motion, no stridor. Cardiovascular: No cyanosis appreciated, distal cap refill less than 2 seconds. Lungs & Thorax: Patient is in no respiratory distress, no audible adventitious lung sounds appreciated. Abdomen: Nontender, no abnormalities noted. Skin: Warm, dry, no erythema, no rash. Back: No tenderness, no deformities. Extremities: No tenderness, no cyanosis, no clubbing, ROM intact, no edema. Neurologic: Alert and oriented X 3, normal motor function, normal sensory function, no focal deficits noted. Psychologic: Affect normal, judgement normal, mood normal. Current Patient Data: Labs: Laboratory Tests Test 03/17/21 12:05 SARS-CoV-2 Antigen (Rapid) Positive (NEGATIVE) *A Vital Signs: Vital Signs Date Time Temp Pulse Resp B/P (MAP) Pulse Ox O2 Delivery O2 Flow Rate FiO2 03/17/21 11:31 98.8 81 18 136/83 (102) 97 Room Air 98.8 EKG: EKG: [] Radiology/Procedures: Radiology/Procedures: [] Course & Med Decision Making: Course & Med Decision Making Pertinent Labs and Imaging studies reviewed. (See chart for details) 61-year-old female, vital signs reviewed, presents emergency department concerning needing a work excuse for leaving work related to a headache that has resolved prior to arrival to the emergency department. Related to patient's report of headache, will obtain Covid testing prior to discharge. Patient did report an allergy to ibuprofen however states that she only says that because she like stronger pain medicine, patient reports she would like to have an ibuprofen for her 1 out of 10 head pain. 1 tablet of 600 milligrams ibuprofen tablet ordered. Patient's rapid Covid test is positive, upon reevaluation of the patient, patient reports her headache is now 0 and she has no symptoms, continue status work excuse. Discussed with patient Covid positive, quarantine instructions, will give work excuse, patient states she is getting a rash on her abdomen, again denies allergy to any medications, will order p.o. Benadryl and reevaluate. Patient's rash on abdomen has resolved, patient is in no respiratory distress, no angioedema, speaking in normal voice tones, no signs of anaphylaxis appreciated. Patient wishes to go home. Discussed COVID-19 virus instructions, patient gave verbal understanding and agrees with ED discharge planning. Discussed with the patient all findings and diagnostic testing as well as the need to follow-up with their primary care provider for further evaluation and treatment or return to the ED if any new or worsening symptoms. Strict return precautions were also discussed at length, the patient voiced understanding and agreement with the discharge planning. The patient was nontoxic in appearance, in no apparent distress, and hemodynamically stable at the time of disposition. Randall Disclaimer: Randall Disclaimer: This electronic medical record was generated, in whole or in part, using a voice recognition dictation system. Departure Departure Impression: Primary Impression: COVID-19 virus infection Disposition: 01 HOME / SELF CARE / HOMELESS Condition: GOOD Referrals: NON,STAFF (PCP) Additional Instructions: You are seen today in the emergency department for the a headache, your headache has resolved, a COVID-19 virus test was obtained, it has returned positive. Please quarantine for the next 14 days. I have attached COVID-19 virus information to this document please review. Please follow-up with your primary care doctor this week. Please return to the emergency department for worsening symptoms or other concerns. Thank you for visiting our Emergency Department. It was a pleasure taking care of you today in the emergency department and we appreciate you trusting us with your care. If any additional problems come up don't hesitate to return to visit us. Please follow up with your primary care provider so they can plan additional care if needed and know about the problem that you had. If symptoms worsen come back to the Emergency Department. Any concerning symptoms that start such as chest pain, shortness of air, weakness or numbness on one side of the body, running high fevers or any other concerning symptoms return to the ER. EMERGENCY DEPARTMENT GENERAL DISCHARGE INSTRUCTIONS Thank you for coming to [facility] Emergency Department (ED) today and trusting us with you care. We trust that you had a positive experience in our Emergency Department. If you wish to speak to the department management, you may call the Director at [phone]. YOUR FOLLOW UP INSTRUCTIONS ARE FOLLOWS: 1. Do you have a private Doctor? If you do not have a private doctor, please ask for a resource list of physicians or clinics that may be able to assist you with follow up care. 2. The Emergency Physicain has interpreted your x-rays. The X-Ray specialist will also review them. If there is a change in the findings, you will be notified in 48 hours when at all possible. 3. A lab test or culture has been done, your results will be reviewed and you will be notified if you need a change in treatment. ADDITIONAL INSTRUCTIONS AND INFORMATION: 1. Your care today has been supervised by a physician who is specially trained in emergency care. Many problems require more than one evaluation for a complete diagnosis and treatment. We recommend that you schedule your follow up appointment as recom mended to ensure complete treatment of you illness or injury. If you are unable to obtain follow up care and continue to have a problem, or if your condition worsens, we recommend that you return to the ED. 2. We are not able to safely determine your condition over the phone nor are we able to give sound medical advice over the phone. For these safety reasons, if you call for medical advice we will ask you to come to the ED for further evaluation. 3. If you have any questions regarding these discharge instructions please call the ED at [phone]. SAFETY INFORMATION: In the interest of safety, wellness, and injury prevention; we encourage you to wear your sealbelt, if you smoke; quite smoking, and we encourage family to use a protective helmet for bicycling and other sporting events that present an increased risk for head injury. IF YOUR SYMPTOMS WORSEN OR NEW SYMPTOMS DEVELOP, OR YOU HAVE CONCERNS ABOUT YOUR CONDITION; OR IF YOUR CONDITION WORSENS WHILE YOU ARE WAITING FOR YOUR FOLLOW UP APPOINTMENT; EITHER CONTACT YOUR PRIMARY CARE DOCTOR, THE PHYSICIAN WHOSE NAME AND NUMBER YOU WERE GIVEN, OR RETURN TO THE ED IMMEDIATELY. You have been tested for or diagnosed with COVID-19. It is an infection caused by a new type of coronavirus. COVID-19 will cause cold-like or mild flu symptoms in most. It can cause more severe symptoms like problems breathing in some. There is no treatment for COVID-19. The body will clear the infection over time. Self-care will help to ease discomfort. Steps to Take: Self-Care Rest as needed. Healthy habits may help you feel better. Steps include: Choose healthy foods including fruits and vegetables. Drink water throughout the day. Get plenty of sleep each night. If you smoke, try to quit. It may ease breathing. Avoid alcohol. Keep Others Healthy The virus can spread to others. Droplets are released every time you sneeze or cough. The droplets can get into the mouth, nose, or eyes of people near you and lead to infection. To lower the chances of spreading COVID-19 to others: Stay at home until your doctor has said it is safe to leave. If you tested positive this will mean staying isolated until both of the following are true: At least 7 days have passed since the start of illness. You are free of fever for at least 72 hours without the use of medicine. During this time: - Avoid public areas, events, or transportation. Do not return to work or school until your doctor has said it is safe to do so. - Call ahead if you need to go to a medical center. Let them know you may have COVID-19. It will help them guide you where to go. They may also ask you to wear a facemask when you come to the office. - If you call for emergency medical services, let them know you may have COVID- 19. While at home: - Try to avoid close contact with others. Stay about 6 feet away. - If possible, spend most of your time in a separate room from others. - Use a face mask if you will be in close contact with others such as sharing a room or vehicle. - Have someone wipe down common surfaces in the home. Use household cdl program coordinator every day on areas like doorknobs, counters, or sinks. - Cough or sneeze into a tissue. Throw the tissue away right after use. If a tissue is not available, cough or sneeze into your elbow. - Wash your hands often. Wash them after sneezing or coughing. Use soap and water and wash for at least 20 seconds. Alcohol based hand delta system freight car cleaner can be used if soap and water is not available. - Do not prepare food for others. Avoid sharing personal items like forks, spoons, or toothbrushes. - Avoid close contact with pets while you are sick. There is no evidence of the virus passing to pets. This is a safety step until more is known about this virus. Isolation can be frustrating. Social interaction can help. Keep in touch with friends and family through phone and tech options. You can still interact with others in your home, just keep a safe distance of about 6 feet. Follow-up: Your doctors office will check in with you to see if there are any changes in your health. You may be asked to keep track of symptoms to share with them. They will also let you know when you are clear to be in public again. Problems to Look Out For: Contact your doctor if your recovery is not going as you expect. Get emergency care if you have problems such as: - Trouble breathing - Nonstop chest pain or pressure - Changes in awareness, confusion, or problems waking - Lips or face have bluish color - Worsening of symptoms If you think you have an emergency, call for emergency medical services right away. As taken from [facility] GLENDY ROMANO APRN Mar 17, 2021 14:28
== END 2021-03-17 14:35 | disposition home or self-care (01) ==
LOC: ER 10:34
DX: U07.1 COVID-19 (principal); K21.9 Gastro-esophageal reflux disease without esophagitis; I10 Essential (primary) hypertension; Z87.891 Personal history of nicotine dependence; Z88.0 Allergy status to penicillin
CPT/HCPCS: 87426; 96372; 99283; J3490; Q0163

== ENCOUNTER 2021-05-25 10:50 | Emergency (ER) | payer BC, OTHER ==
[~2021-05-25] VITALS: Ht 167.6 cm; Wt 87.2 kg
[~2021-05-25 10:50] MED LIST changes: +CYCL10TA19 PO; -CYCL10TA2 PO
--- NOTE | 2021-05-25 10:56 | PHYS DOC ---
Past Medical History Past Medical History: Anxiety, GERD, Hypertension Additional Past Medical Histor: gastritis Past Surgical History: Hysterectomy Additional Past Surgical Histo: Endoscopy Smoking Status: Former Smoker Alcohol Use: Occasionally Drug Use: Marijuana General Adult EDM: Chief Complaint: ALLERGIC REACTION HPI: HPI: Patient is a 61 year old female who presents with allergic reaction. Heidy says that on Saturday her face began swelling and was itchy. She noticed no other swelling or itchiness. She attempted to put vaseline on it but said this made the burning worse. She did not attempt any allergy medicines, and says she is unaware of any environmental or food allergies. She said that she has had no new exposures recently and is unsure what she could be allergic to. This morning she woke up and her eyes were swollen shut and her gums were swollen. This worried her enough to come to the ED. She reports no issues breathing or eating and reports some mild loss of appetite but nothing she has been worried about. Review of Systems: Review of Systems: Fourteen body systems of review of systems have been reviewed. See HPI for pertinent positives and negative responses, other driscoll all other systems are negative, non-pertinent or non-contributory Heart Score: C/O Chest Pain: No Risk Factors: Risk Factors: DM, Current or recent (<one month) smoker, HTN, HLP, family history of CAD, obesity. Risk Scores: Score 0 - 3: 2.5% MACE over next 6 weeks - Discharge Home Score 4 - 6: 20.3% MACE over next 6 weeks - Admit for Clinical Observation Score 7 - 10: 72.7% MACE over next 6 weeks - Early Invasive Strategies Allergies: Allergies: Allergies Coded Allergies Type Severity Reaction Last Updated Verified Penicillins Allergy Severe swelling 08/17/16 Yes Physical Exam: PE: Constitutional: Well developed, well nourished, no acute distress, non-toxic appearance. HENT: Normocephalic, atraumatic, bilateral external ears normal, oropharynx moist, no oral exudates, nose normal. Eyes: PERRLA, EOMI, conjunctiva normal, no discharge. Neck: Normal range of motion, no tenderness, supple, no stridor. Cardiovascular: Heart rate regular, sinus rhythm, no murmurs rubs or gallops Lungs & Thorax: Bilateral breath sounds clear to auscultation Abdomen: Bowel sounds normal, soft, no tenderness, no masses, no pulsatile masses. Nonsurgical abdomen, no peritoneal signs Skin: Warm, dry, no erythema, raised indurated pruritic rash present to bilateral orbits with no ocular involvement Back: No tenderness, no CVA tenderness. Extremities: No tenderness, no cyanosis, no clubbing, ROM intact, no edema. Neurologic: Alert and oriented X 3, grossly normal motor & sensory function, no focal deficits noted. Psychologic: Anxious affect and mood Current Patient Data: Vital Signs: Vital Signs Date Time Temp Pulse Resp B/P (MAP) Pulse Ox O2 Delivery O2 Flow Rate FiO2 05/25/21 11:07 99.1 71 16 168/74 (105) 98 Room Air 99.1 Vital Signs Date Time Temp Pulse Resp B/P (MAP) Pulse Ox O2 Delivery O2 Flow Rate FiO2 05/25/21 11:07 99.1 71 16 168/74 (105) 98 Room Air 99.1 EKG: EKG: [] Radiology/Procedures: Radiology/Procedures: [] Course & Med Decision Making: Course & Med Decision Making ABCs unremarkable HPI and comprehensive physical exam nonconcerning for any emergent or surgical issues No indication for further diagnostic ER workup, intervention, or hospitalization at this time Discussed with patient most likely diagnosis of allergic/contact dermatitis of bilateral orbits Patient given famotidine, Benadryl and steroids in ER with improvement in symptoms. Subsequent steroid burst given at time of ER departure Patient has good access to primary care physician, advised to seek follow-up within upcoming 72 hours for repeat evaluation of rash Disclosed with patient need for continued supportive care practices such as avoiding perfumes and other potential allergens that could exacerbate her current dermatitis Strict return precautions discussed with good understanding verbalized by patient, all questions and concerns addressed prior to departure Randall Disclaimer: Randall Disclaimer: This electronic medical record was generated, in whole or in part, using a voice recognition dictation system. Departure Departure Impression: Primary Impression: Allergic reaction Disposition: HOME / SELF CARE / HOMELESS Condition: STABLE Referrals: NON,STAFF (PCP) Patient Instructions: Anaphylactic Reaction, [id number] Additional Instructions: You were seen for an allergic reaction. You should take the entire course of steroids as prescribed. You need to follow up in the allergy or medicine clinic for further evaluation. It is unclear what caused your reaction. If you start to have shortness of breath, facial swelling, tongue swelling, difficulty swallowing, or any other concerning symptoms you should take your epipen and call 911 to return to the ED. Scripts Prednisone (PREDNISONE) 50 Mg Tablet 1 TAB PO DAILY for ALLERGIC RXN, #4 TAB Prov: SHADY SHIPLEY DO 05/25/21 SHADY SHIPLEY DO May 25, 2021 10:56
[2021-05-25] MEDS ORDERED: PRED50TA PO (11:51)
[2021-05-25 12:00] VITALS: BP 154/68
[2021-05-25] MEDS ORDERED: FAMOTIDINE 20 MG TABLET. PO ONE (12:00)
[2021-05-25] MEDS ORDERED: predniSONE 20 MG TABLET PO ONE (12:00)
[2021-05-25] MEDS ORDERED: diphenhydrAMINE HCL 25 MG CAPSULE PO ONE (12:00)
== END 2021-05-25 12:08 | disposition home or self-care (01) ==
LOC: ER 10:50
DX: T78.40XA Allergy, unspecified, initial encounter (principal); F41.9 Anxiety disorder, unspecified; K21.9 Gastro-esophageal reflux disease without esophagitis; I10 Essential (primary) hypertension; Z88.0 Allergy status to penicillin; X58.XXXA Exposure to other specified factors, initial encounter
CPT/HCPCS: 99284; J7512; Q0163